=== PATIENT | female | born 1965 | race Caucasian/White ===

== ENCOUNTER 2017-12-03 14:37 | Emergency (ER) | payer MEDICAID ==
[~2017-12-03] VITALS: Ht 175.3 cm; Wt 85.5 kg
[2017-12-03 14:54] VITALS: BP 108/58
[2017-12-03] MEDS ORDERED: PERM60CR4 TOP (15:06)
== END 2017-12-03 15:30 | disposition home or self-care (01) ==
LOC: ER 14:37
DX: R21 Rash and other nonspecific skin eruption (principal); K21.9 Gastro-esophageal reflux disease without esophagitis; J44.9 Chronic obstructive pulmonary disease, unspecified; G89.29 Other chronic pain; F17.200 Nicotine dependence, unspecified, uncomplicated; W57.XXXA Bitten or stung by nonvenomous insect and other nonvenomous arthropods, initial encounter; Y93.89 Activity, other specified; Y92.89 Other specified places as the place of occurrence of the external cause; Y99.8 Other external cause status; Z59.0 Homelessness; Z60.2 Problems related to living alone
CPT/HCPCS: 99282

== ENCOUNTER 2018-01-31 17:32 | Emergency (ER) | payer MEDICAID ==
[~2018-01-31] VITALS: Ht 175.3 cm; Wt 89.0 kg
[~2018-01-31 17:32] MED LIST: PERM60CR4 TOP
[2018-01-31 17:36] VITALS: BP 150/112
== END 2018-01-31 19:05 | disposition left against medical advice (07) ==
LOC: ER 17:33
DX: K08.89 Other specified disorders of teeth and supporting structures (principal)

== ENCOUNTER 2018-04-12 10:38 | Emergency (ER) | payer MEDICAID ==
[~2018-04-12] VITALS: Ht 170.2 cm; Wt 87.3 kg
[2018-04-12 10:49] VITALS: BP 157/94
== END 2018-04-12 11:34 | disposition home or self-care (01) ==
LOC: ER 10:38
DX: S00.33XA Contusion of nose, initial encounter (principal); K21.9 Gastro-esophageal reflux disease without esophagitis; J44.9 Chronic obstructive pulmonary disease, unspecified; G89.29 Other chronic pain; F10.10 Alcohol abuse, uncomplicated; Z79.899 Other long term (current) drug therapy; Z60.2 Problems related to living alone; Z59.0 Homelessness; X58.XXXA Exposure to other specified factors, initial encounter; Y93.89 Activity, other specified; Y92.89 Other specified places as the place of occurrence of the external cause; Y99.8 Other external cause status
CPT/HCPCS: 99281

== ENCOUNTER 2018-04-16 16:28 | Emergency (ER) | payer MEDICAID ==
[~2018-04-16] VITALS: Ht 175.3 cm; Wt 88.1 kg
[2018-04-16 16:29] VITALS: BP 140/73
[2018-04-16] MEDS ORDERED: NYST1POW5 TOP (17:08)
[2018-04-16] MEDS ORDERED: KEN0.1O TP (17:08)
== END 2018-04-16 17:30 | disposition home or self-care (01) ==
LOC: ER 16:28
DX: B37.2 Candidiasis of skin and nail (principal); F10.10 Alcohol abuse, uncomplicated; J44.9 Chronic obstructive pulmonary disease, unspecified; K21.9 Gastro-esophageal reflux disease without esophagitis; G89.29 Other chronic pain; Z60.2 Problems related to living alone; Z59.0 Homelessness; Z79.899 Other long term (current) drug therapy; Y90.9 Presence of alcohol in blood, level not specified
CPT/HCPCS: 99284

== ENCOUNTER 2018-07-30 15:31 | Emergency (ER) | payer MEDICAID ==
[~2018-07-30] VITALS: Ht 175.3 cm; Wt 89.0 kg
[~2018-07-30 15:31] MED LIST changes: +NYST1POW5 TOP
[2018-07-30 15:52] VITALS: BP 118/50
[2018-07-30] MEDS ORDERED: SULF1TAB49 PO (16:38)
[2018-07-30] MEDS ORDERED: MUPI22OI30 TOP (16:38)
== END 2018-07-30 17:10 | disposition home or self-care (01) ==
LOC: ER 15:33
DX: L03.116 Cellulitis of left lower limb (principal); F10.20 Alcohol dependence, uncomplicated; J44.9 Chronic obstructive pulmonary disease, unspecified; K21.9 Gastro-esophageal reflux disease without esophagitis; G89.29 Other chronic pain; Z79.2 Long term (current) use of antibiotics; Z79.899 Other long term (current) drug therapy; Y90.9 Presence of alcohol in blood, level not specified; Z60.2 Problems related to living alone; Z59.0 Homelessness
CPT/HCPCS: 99283

== ENCOUNTER 2018-12-16 15:01 | Emergency (ER) | payer MEDICAID ==
[~2018-12-16] VITALS: Ht 175.3 cm; Wt 90.8 kg
[2018-12-16 15:10] VITALS: BP 155/84
--- NOTE | 2018-12-16 15:44 | NUR ---
PER PA OPPEZZO PATIENT NOT IN ROOM, NO VISUALIZATION BY REGISTRATION, AMY LAW MADE AWARE.
== END 2018-12-17 15:44 | disposition left against medical advice (07) ==
LOC: ER 12-17 00:20
DX: Z02.89 Encounter for other administrative examinations (principal); Z53.21 Procedure and treatment not carried out due to patient leaving prior to being seen by health care provider

== ENCOUNTER 2018-12-20 21:13 | Emergency (ER) | payer MEDICAID ==
[~2018-12-20] VITALS: Ht 175.3 cm; Wt 80.0 kg
[2018-12-20] MEDS ORDERED: DOXYCYCLINE 100MG CAPSULE PO STA (22:19)
[2018-12-20] MEDS ORDERED: tuberculin, purif. prot. deriv. 5 units/0.1ml ID ONE (22:20)
[2018-12-20] MEDS ORDERED: CefTRIAXone 250MG IM Kit w/LIDOcaine IM ONE (22:20)
[2018-12-20] MEDS ORDERED: PERM60CR19 TP (22:25)
[2018-12-20] MEDS ORDERED: DOXY100C43 PO (22:25)
[2018-12-20 23:23] VITALS: BP 136/99
[2018-12-22 08:18] LABS: RPR Non Reactive (Non Reactive)
== END 2018-12-20 23:25 | disposition home or self-care (01) ==
LOC: ER 21:13
DX: S80.862A Insect bite (nonvenomous), left lower leg, initial encounter (principal); S80.861A Insect bite (nonvenomous), right lower leg, initial encounter; J44.9 Chronic obstructive pulmonary disease, unspecified; K21.9 Gastro-esophageal reflux disease without esophagitis; G89.29 Other chronic pain; F17.210 Nicotine dependence, cigarettes, uncomplicated; Z59.0 Homelessness; Z88.6 Allergy status to analgesic agent; W57.XXXA Bitten or stung by nonvenomous insect and other nonvenomous arthropods, initial encounter; Y93.89 Activity, other specified; Y92.89 Other specified places as the place of occurrence of the external cause; Y99.9 Unspecified external cause status
CPT/HCPCS: 36415; 86592; 96372; 99284; J0696

== ENCOUNTER 2018-12-25 14:37 | Emergency (ER) | payer MEDICAID ==
[~2018-12-25] VITALS: Ht 175.3 cm; Wt 87.0 kg
[~2018-12-25 14:37] MED LIST changes: +DOXY100C43 PO; +PERM60CR19 TP
[2018-12-25 14:48] VITALS: BP 140/80
== END 2018-12-25 15:53 | disposition left against medical advice (07) ==
LOC: ER 14:38
DX: Z71.2 Person consulting for explanation of examination or test findings (principal); Z53.21 Procedure and treatment not carried out due to patient leaving prior to being seen by health care provider

== ENCOUNTER 2018-12-25 16:40 | Emergency (ER) | payer MEDICAID ==
--- NOTE | 2018-12-25 16:54 | NUR ---
Patient seen here earlier, LWBS, returns and when called to triage patient asked if she was going to have to wait again. I told patient there would be a short wait and pt. decided to leave again.
== END 2018-12-25 16:55 | disposition left against medical advice (07) ==
LOC: ER 16:40
DX: Z71.2 Person consulting for explanation of examination or test findings (principal); Z53.21 Procedure and treatment not carried out due to patient leaving prior to being seen by health care provider

== ENCOUNTER 2019-05-21 15:01 | Emergency (ER) | payer MEDICAID ==
[~2019-05-21] VITALS: Ht 175.3 cm; Wt 90.9 kg
[~2019-05-21 15:01] MED LIST changes: -DOXY100C43 PO
[2019-05-21 15:06] VITALS: BP 126/73
[2019-05-21] MEDS ORDERED: naproxen 500mg tablet PO ONE (15:10)
[2019-05-21] MEDS ORDERED: ibuprofen tablet 400 MG TABLET PO ONE (15:40)
== END 2019-05-21 16:04 | disposition home or self-care (01) ==
LOC: ER 15:02
DX: S00.83XA Contusion of other part of head, initial encounter (principal); F10.920 Alcohol use, unspecified with intoxication, uncomplicated; J44.9 Chronic obstructive pulmonary disease, unspecified; K21.9 Gastro-esophageal reflux disease without esophagitis; G89.29 Other chronic pain; F17.210 Nicotine dependence, cigarettes, uncomplicated; Z59.0 Homelessness; Z88.6 Allergy status to analgesic agent; Z79.899 Other long term (current) drug therapy; Y04.0XXA Assault by unarmed brawl or fight, initial encounter; Y93.89 Activity, other specified; Y92.89 Other specified places as the place of occurrence of the external cause; Y99.9 Unspecified external cause status
CPT/HCPCS: 70110; 99283

== ENCOUNTER 2019-06-24 13:09 | Emergency (ER) | payer MEDICAID ==
[~2019-06-24] VITALS: Ht 175.3 cm; Wt 89.5 kg
[2019-06-24 13:13] VITALS: BP 128/86
== END 2019-06-24 14:29 | disposition home or self-care (01) ==
LOC: ER 13:09
DX: F10.20 Alcohol dependence, uncomplicated (principal); J44.9 Chronic obstructive pulmonary disease, unspecified; K21.9 Gastro-esophageal reflux disease without esophagitis; G89.29 Other chronic pain; Z60.2 Problems related to living alone; Z59.0 Homelessness; Z88.6 Allergy status to analgesic agent; Z79.899 Other long term (current) drug therapy; Y90.9 Presence of alcohol in blood, level not specified
CPT/HCPCS: 99281

== ENCOUNTER → 2020-06-12 | Emergency (ER) | payer MEDICAID ==
[~2020-06-12] VITALS: Ht 175.3 cm; Wt 88.2 kg
[~2020-06-12] MED LIST changes: +ketorolac tromethamine 15mg/ml inj. IM STA
[2020-06-12 11:57] VITALS: BP 126/93
== END | disposition home or self-care (01) ==
LOC: ER 11:53
DX: M25.561 Pain in right knee (principal); M25.461 Effusion, right knee; J44.9 Chronic obstructive pulmonary disease, unspecified; K21.9 Gastro-esophageal reflux disease without esophagitis; G89.29 Other chronic pain; Z72.89 Other problems related to lifestyle; Z60.2 Problems related to living alone; Z59.0 Homelessness; Z88.6 Allergy status to analgesic agent; Z79.899 Other long term (current) drug therapy
CPT/HCPCS: 96372; 99283; J1885

== ENCOUNTER 2020-06-22 10:19 | Emergency (ER) | payer MEDICAID ==
[~2020-06-22] VITALS: Ht 175.3 cm; Wt 90.0 kg
[~2020-06-22 10:19] MED LIST changes: -ketorolac tromethamine 15mg/ml inj. IM STA
[2020-06-22 10:38] VITALS: BP 151/86
== END 2020-06-22 10:51 | disposition left against medical advice (07) ==
LOC: ER 10:21
DX: Z00.00 Encounter for general adult medical examination without abnormal findings (principal); Y08.89XA Assault by other specified means, initial encounter; Y93.89 Activity, other specified; Y92.89 Other specified places as the place of occurrence of the external cause; Y99.8 Other external cause status

== ENCOUNTER 2020-06-27 16:45 | Emergency (ER) | payer MEDICAID ==
[~2020-06-27] VITALS: Ht 175.3 cm; Wt 92.3 kg
[2020-06-27 16:48] VITALS: BP 162/96
== END 2020-06-27 19:05 | disposition home or self-care (01) ==
LOC: ER 16:46
DX: M25.561 Pain in right knee (principal); J44.9 Chronic obstructive pulmonary disease, unspecified; K21.9 Gastro-esophageal reflux disease without esophagitis; G89.29 Other chronic pain; Z72.89 Other problems related to lifestyle; Z60.2 Problems related to living alone; Z59.0 Homelessness; Z88.6 Allergy status to analgesic agent; Z79.899 Other long term (current) drug therapy
CPT/HCPCS: 73560; 93971; 99284

== ENCOUNTER 2020-12-23 17:28 | Emergency (ER) | payer MEDICAID ==
[~2020-12-23] VITALS: Ht 175.3 cm; Wt 90.9 kg
[2020-12-23 17:30] VITALS: BP 139/77
== END 2020-12-23 17:41 | disposition left against medical advice (07) ==
LOC: ER 17:28
DX: Z53.21 Procedure and treatment not carried out due to patient leaving prior to being seen by health care provider (principal)

== ENCOUNTER 2021-05-24 07:11 | Emergency (ER) | payer MEDICAID ==
[~2021-05-24] VITALS: Ht 175.3 cm; Wt 90.7 kg
[2021-05-24 07:16] VITALS: BP 156/87
[2021-05-24] MEDS ORDERED: chlordiazePOXIDE 25mg capsule PO ONE (07:30)
== END 2021-05-24 08:09 | disposition home or self-care (01) ==
LOC: ER 07:11
DX: Z02.89 Encounter for other administrative examinations (principal); F10.10 Alcohol abuse, uncomplicated; K21.9 Gastro-esophageal reflux disease without esophagitis; J44.9 Chronic obstructive pulmonary disease, unspecified; G89.29 Other chronic pain; F17.210 Nicotine dependence, cigarettes, uncomplicated; Z72.89 Other problems related to lifestyle; Z60.2 Problems related to living alone; Z59.0 Homelessness; Z88.6 Allergy status to analgesic agent; Z79.899 Other long term (current) drug therapy; Y90.9 Presence of alcohol in blood, level not specified
CPT/HCPCS: 99283

== ENCOUNTER 2021-06-27 11:25 | Emergency (ER) | payer MEDICAID ==
[~2021-06-27] VITALS: Ht 175.3 cm; Wt 82.7 kg
[2021-06-27 12:03] VITALS: BP 136/88
== END 2021-06-27 23:00 | disposition left against medical advice (07) ==
LOC: ER 11:25
DX: S00.461A Insect bite (nonvenomous) of right ear, initial encounter (principal); K21.9 Gastro-esophageal reflux disease without esophagitis; J44.9 Chronic obstructive pulmonary disease, unspecified; G89.29 Other chronic pain; M54.9 Dorsalgia, unspecified; Z88.8 Allergy status to other drugs, medicaments and biological substances; Z79.899 Other long term (current) drug therapy; W57.XXXA Bitten or stung by nonvenomous insect and other nonvenomous arthropods, initial encounter; Y93.89 Activity, other specified; Y92.89 Other specified places as the place of occurrence of the external cause; Y99.8 Other external cause status
CPT/HCPCS: 99281

== ENCOUNTER 2021-09-14 11:31 | Emergency (ER) | payer MEDICAID ==
[~2021-09-14] VITALS: Ht 175.3 cm; Wt 90.9 kg
[2021-09-14 12:13] VITALS: BP 161/93
[2021-09-14] MEDS ORDERED: GABA300C PO (12:18)
== END 2021-09-14 12:33 | disposition home or self-care (01) ==
LOC: ER 11:32
DX: F10.10 Alcohol abuse, uncomplicated (principal); J44.9 Chronic obstructive pulmonary disease, unspecified; K21.9 Gastro-esophageal reflux disease without esophagitis; G89.29 Other chronic pain; Z72.89 Other problems related to lifestyle; Z60.2 Problems related to living alone; Z59.00 Homelessness unspecified; Z88.6 Allergy status to analgesic agent; Z79.899 Other long term (current) drug therapy; Y90.9 Presence of alcohol in blood, level not specified
CPT/HCPCS: 99283

== ENCOUNTER 2021-09-23 07:47 | Emergency (ER) | payer MEDICAID ==
[~2021-09-23] VITALS: Ht 175.3 cm; Wt 95.5 kg
[~2021-09-23 07:47] MED LIST changes: +GABA300C PO
[2021-09-23 07:57] VITALS: BP 155/93
[2021-09-23 09:20] LABS: BASOPHILS # (AUTO) 0.1 X10'3 (0-0.2); BASOPHILS % (AUTO) 0.7 % (0-1); EOSINOPHILS # (AUTO) 0.2 X10'3 (0-0.9); EOSINOPHILS % (AUTO) 1.3 % (0-6); HEMATOCRIT 41.2 % (35.0-45.0); HEMOGLOBIN 14.2 g/dl (12.0-16.0); LYMPHOCYTES % (AUTO) 15.4 % (21-51); MEAN CORPUSCULAR HEMOGLOBIN 33.7 PG (27.0-31.0); MEAN CORPUSCULAR HGB CONC 34.5 g/dL (33.0-36.5); MEAN CORPUSCULAR VOLUME 97.9 FL (78-98); MEAN PLATELET VOLUME 7.3 FL (7.4-10.4); MONOCYTES # (AUTO) 1.3 X10'3 (0-0.9); MONOCYTES % (AUTO) 10.2 % (2-12); NEUTROPHILS # (AUTO) 9.3 X10'3 (1.8-7.7); NEUTROPHILS % (AUTO) 72.4 % (42-75); PLATELET COUNT 302 X10'3 (140-440); RED BLOOD COUNT 4.21 X10'6 (4.20-5.60); RED CELL DISTRIBUTION WIDTH 13.4 % (11.5-14.5); WHITE BLOOD COUNT 12.8 X10'3 (4.5-11.0)
[2021-09-23 09:34] LABS: ALANINE AMINOTRANSFERASE 140 U/L (12-78); ALBUMIN 3.3 G/DL (3.4-5.0); ALBUMIN/GLOBULIN RATIO 0.6 (1.1-1.5); ALKALINE PHOSPHATASE 120 IU/L (46-116); ANION GAP 10 (8-16); ASPARTATE AMINO TRANSFERASE 58 U/L (10-37); BILIRUBIN,TOTAL 0.9 MG/DL (0.1-1.0); BLOOD UREA NITROGEN 13 MG/DL (7-18); BUN/CREATININE RATIO 18.1 (6.6-38.0); CALCIUM 8.8 MG/DL (8.5-10.1); CHLORIDE 104 MMOL/L (99-107); CREATININE 0.72 MG/DL (0.40-0.90); GLUCOSE 105 MG/DL (70-104); POTASSIUM 3.7 MMOL/L (3.5-5.1); SODIUM 140 MMOL/L (135-145); TOTAL CARBON DIOXIDE 26.3 MMOL/L (24-32); TOTAL PROTEIN 8.5 G/DL (6.4-8.2); eGFR 84 ML/MIN
[2021-09-23 09:34] LABS: URINE HCG NEGATIVE (NEG)
[2021-09-23 09:43] LABS: CLARITY,URINE CLOUDY (Clear); COLOR,URINE YELLOW (Yellow); GLUCOSE, URINE NEGATIVE (Neg); KETONES,URINE NEGATIVE (Neg); LEUKOCYTE ESTERASE ,URINE MODERATE (Neg); NITRITES, URINE POSITIVE (Neg); OCCULT BLOOD,URINE MODERATE (Neg); PROTEIN,URINE TRACE mg/dl (Neg); UA COLLECTION TYPE CLN CATCH MIDSTREAM; UROBILINOGEN,URINE 0.2 E.U/dL (0.2-1.0)
[2021-09-23 09:53] LABS: BACTERIA,URINE 4+ /HPF (Neg); WBC,URINE 50-100 /HPF (0-4)
[2021-09-23 09:54] LABS: MUCUS STRANDS MODERATE /LPF (Neg); SQUAMOUS EPITHELIAL CELL,UR MODERATE /LPF (FEW); WBC CLUMPS,URINE MANY /HPF (NEGATIVE)
== END 2021-09-23 10:19 | disposition left against medical advice (07) ==
LOC: ER 07:47
DX: R32 Unspecified urinary incontinence (principal); Z53.21 Procedure and treatment not carried out due to patient leaving prior to being seen by health care provider
CPT/HCPCS: 80053; 81001; 81025; 85025; 87077; 87088; 87186

== ENCOUNTER 2021-10-09 18:53 | Emergency (ER) | payer MEDICAID ==
[~2021-10-09] VITALS: Ht 172.7 cm; Wt 96.4 kg
[2021-10-09] MEDS ORDERED: etomidate 2mg/ml inj. IV ONE (19:10)
[2021-10-09] MEDS ORDERED: fentaNYL/PF 50MCG/1 ML 2ML syringe IV ONE (19:10)
[2021-10-09 21:59] VITALS: BP 143/110
[2021-10-09] MEDS ORDERED: HYDR-3965 PO (22:51)
== END 2021-10-09 23:10 | disposition home or self-care (01) ==
LOC: ER 18:54
DX: S43.004A Unspecified dislocation of right shoulder joint, initial encounter (principal); W18.39XA Other fall on same level, initial encounter; Y93.89 Activity, other specified; Y92.89 Other specified places as the place of occurrence of the external cause; Y99.8 Other external cause status
CPT/HCPCS: 23650; 73030; 94799; 99152; 99285; J3010; J3490; 94760; 96374; 96375

== ENCOUNTER 2021-10-22 10:49 | Emergency (ER) | payer MEDICAID ==
[~2021-10-22 10:49] MED LIST changes: +HYDR-3965 PO
== END 2021-10-22 13:28 | disposition left against medical advice (07) ==
LOC: ER 10:49
DX: M25.519 Pain in unspecified shoulder (principal); Z53.21 Procedure and treatment not carried out due to patient leaving prior to being seen by health care provider

== ENCOUNTER 2021-10-22 21:42 | Emergency (ER) | payer MEDICAID ==
[~2021-10-22] VITALS: Ht 175.3 cm; Wt 100.0 kg
[2021-10-22 21:51] VITALS: BP 167/84
[2021-10-23] MEDS ORDERED: acetaminophen 325mg tablet PO ONE (01:35)
[2021-10-23] MEDS ORDERED: HYDROcodone/acetaminophen 5mg/325mg tablet PO ONE (01:35)
== END 2021-10-23 02:09 | disposition home or self-care (01) ==
LOC: ER 21:44
DX: M79.601 Pain in right arm (principal); J44.9 Chronic obstructive pulmonary disease, unspecified; K21.9 Gastro-esophageal reflux disease without esophagitis; Z72.89 Other problems related to lifestyle; Z60.2 Problems related to living alone; Z59.00 Homelessness unspecified; Z88.6 Allergy status to analgesic agent; Z79.899 Other long term (current) drug therapy
CPT/HCPCS: 99283

== ENCOUNTER 2022-01-17 16:20 | Inpatient (IN) | payer MEDICAID ==
[~2022-01-17] VITALS: Ht 175.3 cm; Wt 235.5 kg
[~2022-01-17 16:20] MED LIST changes: -HYDR-3965 PO
[2022-01-17 17:22] LABS: BASOPHILS # (AUTO) 0.1 X10'3 (0-0.2); EOSINOPHILS # (AUTO) 0.1 X10'3 (0-0.9); EOSINOPHILS % (AUTO) 1.9 % (0-6); HEMATOCRIT 37.8 % (35.0-45.0); HEMOGLOBIN 12.5 g/dl (12.0-16.0); LYMPHOCYTES # (AUTO) 1.2 X10'3 (1.1-4.8); LYMPHOCYTES % (AUTO) 16.3 % (21-51); MEAN CORPUSCULAR HEMOGLOBIN 31.2 PG (27.0-31.0); MEAN CORPUSCULAR VOLUME 94.6 FL (78-98); MEAN PLATELET VOLUME 7.5 FL (7.4-10.4); MONOCYTES # (AUTO) 0.7 X10'3 (0-0.9); MONOCYTES % (AUTO) 9.8 % (2-12); NEUTROPHILS # (AUTO) 5.1 X10'3 (1.8-7.7); PLATELET COUNT 309 X10'3 (140-440); RED CELL DISTRIBUTION WIDTH 13.8 % (11.5-14.5); WHITE BLOOD COUNT 7.2 X10'3 (4.5-11.0)
[2022-01-17 17:36] LABS: ALANINE AMINOTRANSFERASE 59 U/L (12-78); ALBUMIN 3.1 G/DL (3.4-5.0); ALBUMIN/GLOBULIN RATIO 0.7 (1.1-1.5); ALKALINE PHOSPHATASE 88 IU/L (46-116); ANION GAP 8 (8-16); ASPARTATE AMINO TRANSFERASE 53 U/L (10-37); BILIRUBIN,TOTAL 0.6 MG/DL (0.1-1.0); BLOOD UREA NITROGEN 14 MG/DL (7-18); BUN/CREATININE RATIO 17.9 (6.6-38.0); CALCIUM 8.2 MG/DL (8.5-10.1); CHLORIDE 106 MMOL/L (99-107); CREATININE 0.78 MG/DL (0.40-0.90); GLUCOSE 91 MG/DL (70-104); LIPASE 147 U/L (73-393); POTASSIUM 3.8 MMOL/L (3.5-5.1); SODIUM 140 MMOL/L (135-145); TOTAL CARBON DIOXIDE 26.3 MMOL/L (24-32); TOTAL PROTEIN 7.7 G/DL (6.4-8.2); eGFR 77 ML/MIN
[2022-01-17] MEDS ORDERED: metoprolol tartrate 1mg/ml inj IV ONE (18:00)
[2022-01-17] MEDS ORDERED: furosemide 40mg/4ml inj IV ONE (18:00)
[2022-01-17 19:37] LABS: CLARITY,URINE SLIGHTLY CLOUDY (Clear); COLOR,URINE YELLOW (Yellow); GLUCOSE, URINE NEGATIVE (Neg); KETONES,URINE NEGATIVE (Neg); LEUKOCYTE ESTERASE ,URINE TRACE (Neg); NITRITES, URINE NEGATIVE (Neg); OCCULT BLOOD,URINE TRACE-INTACT (Neg); PH,URINE 5.5 (4.8-8.0); PROTEIN,URINE TRACE mg/dl (Neg); UROBILINOGEN,URINE 0.2 E.U/dL (0.2-1.0)
[2022-01-17 19:41] LABS: UA COLLECTION TYPE URINAL
[2022-01-17 19:45] LABS: BACTERIA,URINE 1+ /HPF (Neg); FINE GRANULAR CAST 0-3 /LPF (NEGATIVE); MUCUS STRANDS FEW /LPF (Neg); RBC,URINE 0-2 /HPF (0-2); SQUAMOUS EPITHELIAL CELL,UR MODERATE /LPF (FEW)
[2022-01-17] MEDS ORDERED: labetalol 20mg/4ml (5mg/ml) syringe IV ONE (21:25)
[2022-01-17] MEDS ORDERED: LEVA15HF6 IH (23:34)
[2022-01-17] MEDS ORDERED: NALT50TA PO (23:34)
[2022-01-17] MEDS ORDERED: CYCL5TAB PO (23:34)
[2022-01-17] MEDS ORDERED: BECL10.62 IH (23:34)
[2022-01-17] MEDS ORDERED: PANT40TA54 PO (23:34)
[2022-01-17] MEDS ORDERED: IBUP-1985 PO (23:34)
[2022-01-17] MEDS ORDERED: MELO-102 PO (23:34)
[2022-01-17] MEDS ORDERED: GABA300C PO (23:34)
[2022-01-17] MEDS ORDERED: OMEP40CA21 PO (23:34)
[2022-01-18] MEDS ORDERED: ringers solution, lacted 1,000 ML IV ONE (01:50)
[2022-01-18] MEDS ORDERED: acetaminophen 650mg rectal suppository RC PRN (01:55)
[2022-01-18] MEDS ORDERED: acetaminophen 325mg tablet PO PRN ×2 (01:55)
[2022-01-18] MEDS ORDERED: diphenhydrAMINE 25mg capsule PO PRN (01:55)
[2022-01-18] MEDS ORDERED: mag hydrox/Alum hydrox/simeth 30ml oral suspension PO PRN (01:55)
[2022-01-18] MEDS ORDERED: morphine 2 MG/ML inj. syringe IV PRN ×2 (01:55)
[2022-01-18] MEDS ORDERED: magnesium hydroxide 30ml (MOM) UD suspension PO PRN (01:55)
[2022-01-18] MEDS ORDERED: diphenhydrAMINE 50 mg/ml inj IV PRN (01:55)
[2022-01-18] MEDS ORDERED: haloperidol lactate 5mg/ml inj IM PRN (01:55)
[2022-01-18] MEDS ORDERED: cyclobenzaprine 10mg tablet PO PRN (01:55)
[2022-01-18] MEDS ORDERED: LORazepam 2 mg/ml vial IV PRN (01:55)
[2022-01-18] MEDS ORDERED: HYDROcodone/acetaminophen 10/325mg tab PO PRN (01:55)
[2022-01-18] MEDS ORDERED: normal saline 1000ml 1,000 ML IV SCH (01:55)
[2022-01-18] MEDS ORDERED: dextrose 50%-water 50ml dispensing syringe IV PRN (01:55)
[2022-01-18] MEDS ORDERED: ondansetron/PF 4mg/2ml inj IV PRN (01:55)
[2022-01-18] MEDS ORDERED: bisacodyl 10mg suppository rectal RC PRN (01:55)
[2022-01-18] MEDS ORDERED: HYDROcodone/acetaminophen 5mg/325mg tablet PO PRN (01:55)
[2022-01-18] MEDS ORDERED: ondansetron 4mg rapidly disintigrating tab PO PRN (01:55)
[2022-01-18 02:42] LABS: APTT 27 SECONDS (22-32); D-DIMER 1.83 MG/L FEU (0-0.50)
[2022-01-18] MEDS ORDERED: albuterol 2.5 MG/3 ML nebule NEB PRN (03:00)
[2022-01-18 03:02] LABS: HEMOGLOBIN A1C 6.4 % (4.5-6.2)
[2022-01-18 03:26] LABS: CREATINE KINASE 48 U/L (26-192); MAGNESIUM 1.7 MG/DL (1.5-2.4); PHOSPHORUS 3.3 MG/DL (2.3-4.5)
[2022-01-18] MEDS ORDERED: LIDOcaine 2% 10ml TOPICAL JELLY (Urojet) TP ONE (05:45)
[2022-01-18] MEDS ORDERED: ipratropium/albuterol 3ml nebule NEB PRN (06:05)
--- NOTE | 2022-01-18 06:20 | NUR ---
pt refused stapleton catheter placement. continuing to measure urine output via a hat on a commode. pt can walk to the commode without help. let Dr. Smith know about the elevated heart rate.
--- NOTE | 2022-01-18 06:22 | NUR ---
dr. alejo made aware that heart rate is still elevated since earlier call to him. pt is stable.
[2022-01-18 06:26] LABS: CLARITY,URINE CLEAR (Clear); COLOR,URINE YELLOW (Yellow); GLUCOSE, URINE NEGATIVE (Neg); KETONES,URINE NEGATIVE (Neg); LEUKOCYTE ESTERASE ,URINE NEGATIVE (Neg); NITRITES, URINE NEGATIVE (Neg); OCCULT BLOOD,URINE NEGATIVE (Neg); PH,URINE 5.5 (4.8-8.0); PROTEIN,URINE NEGATIVE (Neg); URINE AMPHETAMINE SCREEN POSITIVE (Neg); URINE BARBITUATE SCREEN NEGATIVE (Neg); URINE BENZODIAZEPINES SCREEN NEGATIVE (Neg); URINE CANNABINOID SCREEN NEGATIVE (Neg); URINE COCAINE SCREEN NEGATIVE (Neg); URINE METHADONE SCREEN NEGATIVE (Neg); URINE OPIATE SCREEN NEGATIVE (Neg); URINE PHENCYCLIDINE SCREEN NEGATIVE (Neg); UROBILINOGEN,URINE 0.2 E.U/dL (0.2-1.0)
[2022-01-18] MEDS: carVEDilol 3.125mg tablet PO SCH ×2 (06:26→20:02)
[2022-01-18 06:32] LABS: UA COLLECTION TYPE URINAL
--- NOTE | 2022-01-18 06:34 | NUR ---
Patient aroused via tactile stimuli, disoriented but able to "gather myself" shortly. Patient able to reposition self in guerny and drink water and take medication (see EMAR) for HR 124, BP 142/102. Repositioned for comfort, no signs of distress noted.
[2022-01-18] MEDS ORDERED: pantoprazole 40mg Tablet.DR PO SCH (08:00)
[2022-01-18] MEDS ORDERED: furosemide 20 MG/2 ML vial IV SCH (08:00)
[2022-01-18] MEDS: levoFLOXACIN-Levaquin 500mg/D5 100 ML IV SCH (08:49)
[2022-01-18] MEDS: thiamine 100mg/ml 2ml inj. IV SCH ×3 (08:55→20:02)
[2022-01-18] MEDS: pantoprazole 40mg Tablet.DR PO SCH (08:56)
[2022-01-18] MEDS: atorvastatin 10mg tablet PO SCH (08:56)
[2022-01-18] MEDS: docusate sod 100mg capsule PO SCH ×2 (08:56→20:02)
[2022-01-18] MEDS: aspirin 81mg, enteric-coated 1 TAB TABLET.DR PO SCH (08:56)
[2022-01-18] MEDS: heparin, porcine 5000 units/ml vial SQ SCH ×2 (08:56→20:02)
[2022-01-18] MEDS: spironolactone 25 MG tablet PO SCH (08:56)
[2022-01-18] MEDS: naltrexone 50mg tablet PO SCH (09:10)
[2022-01-18] MEDS: folic acid 1mg/0.2ml inj IV SCH (09:11)
[2022-01-18] MEDS ORDERED: iohexol 350MG/ML 100ml bottle IV ONE (09:19)
--- NOTE | 2022-01-18 09:46 | NUR ---
BACK FROM CT AT THIS TIME.
--- NOTE | 2022-01-18 09:58 | NUR ---
RT at bedside at this time.
[2022-01-18] MEDS: budesonide 0.5mg/2ml UD nebule IH SCH ×2 (10:04→19:26)
--- NOTE | 2022-01-18 11:13 | NUR ---
patient asleep at this time.
[2022-01-18 12:10] VITALS: BP 148/103
--- NOTE | 2022-01-18 12:10 | NUR ---
Miss Garcia has been admitted to room 3018-b. She has been assessed as indicated. She has been rough and inappropriate with staff. Alert to self and place confused related to date and time. She is resting quietly at this time
[2022-01-18 15:00] VITALS: BP 149/102
[2022-01-18 18:00] VITALS: BP 125/73
--- NOTE | 2022-01-18 18:15 | NUR ---
Problems reprioritized. Patient report given, questions answered & plan of care reviewed with юлия .
[2022-01-18] MEDS: temazepam 15mg capsule PO PRN (20:02)
[2022-01-18] MEDS: LORazepam 2 mg/ml vial IV PRN (20:02)
[2022-01-18] MEDS: gabapentin 300mg capsule PO SCH (20:02)
--- NOTE | 2022-01-18 20:48 | NUR ---
FARRUKH Pt is agitated, ativan 2mg given Addendum: 01/18/22 at 2049 by Vi Angeles RN Amended: Links added.
[2022-01-18 22:00] VITALS: BP 137/92
[2022-01-19 02:00] VITALS: BP 153/88
[2022-01-19 06:00] VITALS: BP 129/93
--- NOTE | 2022-01-19 06:22 | NUR ---
Pt is refusing telemetry
[2022-01-19 06:42] LABS: BASOPHILS # (AUTO) 0.1 X10'3 (0-0.2); BASOPHILS % (AUTO) 0.8 % (0-1); EOSINOPHILS # (AUTO) 0.2 X10'3 (0-0.9); EOSINOPHILS % (AUTO) 2.6 % (0-6); HEMATOCRIT 37.6 % (35.0-45.0); HEMOGLOBIN 12.4 g/dl (12.0-16.0); LYMPHOCYTES # (AUTO) 1.2 X10'3 (1.1-4.8); LYMPHOCYTES % (AUTO) 18.1 % (21-51); MEAN CORPUSCULAR HEMOGLOBIN 31.1 PG (27.0-31.0); MEAN CORPUSCULAR HGB CONC 33.1 g/dL (33.0-36.5); MEAN CORPUSCULAR VOLUME 94.1 FL (78-98); MEAN PLATELET VOLUME 7.8 FL (7.4-10.4); MONOCYTES # (AUTO) 0.7 X10'3 (0-0.9); MONOCYTES % (AUTO) 11.3 % (2-12); NEUTROPHILS # (AUTO) 4.4 X10'3 (1.8-7.7); NEUTROPHILS % (AUTO) 67.2 % (42-75); PLATELET COUNT 292 X10'3 (140-440); RED CELL DISTRIBUTION WIDTH 13.9 % (11.5-14.5); WHITE BLOOD COUNT 6.6 X10'3 (4.5-11.0)
[2022-01-19 06:53] LABS: ALANINE AMINOTRANSFERASE 63 U/L (12-78); ALBUMIN/GLOBULIN RATIO 0.7 (1.1-1.5); ALKALINE PHOSPHATASE 86 IU/L (46-116); ANION GAP 11 (8-16); ASPARTATE AMINO TRANSFERASE 55 U/L (10-37); BILIRUBIN,TOTAL 0.6 MG/DL (0.1-1.0); BLOOD UREA NITROGEN 14 MG/DL (7-18); BUN/CREATININE RATIO 18.2 (6.6-38.0); CALCIUM 8.6 MG/DL (8.5-10.1); CHLORIDE 104 MMOL/L (99-107); CHOL/HDL RATIO 3.4 (0.00-4.99); CHOLESTEROL 82 MG/DL (0-200); CREATININE 0.77 MG/DL (0.40-0.90); GLUCOSE 124 MG/DL (70-104); HDL CHOLESTEROL 24 MG/DL (35-60); LDL CHOLESTEROL 52 MG/DL (50-100); SODIUM 140 MMOL/L (135-145); TOTAL CARBON DIOXIDE 25.2 MMOL/L (24-32); TOTAL PROTEIN 7.5 G/DL (6.4-8.2); TRIGLYCERIDES 42 MG/DL (20-135); eGFR 78 ML/MIN
[2022-01-19] MEDS ORDERED: methylPREDNISolone sod succ 125mg/2ml vial IV ONE (07:30)
[2022-01-19] MEDS: furosemide 20 MG/2 ML vial IV SCH ×3 (08:00→20:23)
[2022-01-19] MEDS: folic acid 1mg/0.2ml inj IV SCH (08:00)
[2022-01-19] MEDS: naltrexone 50mg tablet PO SCH (10:19)
[2022-01-19] MEDS: aspirin 81mg, enteric-coated 1 TAB TABLET.DR PO SCH (10:19)
[2022-01-19] MEDS: spironolactone 25 MG tablet PO SCH (10:20)
[2022-01-19] MEDS: carVEDilol 3.125mg tablet PO SCH ×2 (10:20→20:24)
[2022-01-19] MEDS: atorvastatin 10mg tablet PO SCH (10:20)
[2022-01-19] MEDS: gabapentin 300mg capsule PO SCH (10:20)
[2022-01-19] MEDS: heparin, porcine 5000 units/ml vial SQ SCH ×2 (10:21→20:23)
[2022-01-19] MEDS: docusate sod 100mg capsule PO SCH ×2 (10:21→20:24)
[2022-01-19] MEDS: levoFLOXACIN-Levaquin 500mg/D5 100 ML IV SCH (10:49)
[2022-01-19] MEDS: thiamine 100mg/ml 2ml inj. IV SCH ×3 (10:50→20:23)
[2022-01-19 11:00] VITALS: BP 143/94
[2022-01-19] MEDS: ipratropium/albuterol 3ml nebule NEB SCH ×5 (11:05→23:31)
[2022-01-19] MEDS: budesonide 0.5mg/2ml UD nebule IH SCH ×2 (11:05→19:34)
[2022-01-19] MEDS: pantoprazole 40mg Tablet.DR PO SCH (11:31)
--- NOTE | 2022-01-19 11:36 | NUR ---
Met with patient in regards to alcohol use and substance use and to see if patient was interested in treatment options. Patient would like resources on inpatient services. Patient mentioned [facility] in [place], so I gave her that number. I gave patient beacons number to call and start that process. I also gave patient my card to call me with any questions
[2022-01-19 15:00] VITALS: BP 138/93
--- NOTE | 2022-01-19 18:00 | NUR ---
Miss Garcia has been assessed as indicated. She denies pain and has slept most of this shift. She uses the BSC independently. completes 100% of her meals and asks for more. IV access has been replace to her Right hand, She has been encouraged to be cautious of this site. She has not required any withdrawal interventions this shift
--- NOTE | 2022-01-19 18:15 | NUR ---
Problems reprioritized. Patient report given, questions answered & plan of care reviewed with OVI .
[2022-01-19] MEDS: methylPREDNISolone sod succ/PF 40mg inj. IV SCH (20:22)
[2022-01-19] MEDS: temazepam 15mg capsule PO PRN (20:24)
[2022-01-20] MEDS: ipratropium/albuterol 3ml nebule NEB SCH ×6 (02:58→23:00)
[2022-01-20 06:06] LABS: BASOPHILS % (AUTO) 0.3 % (0-1); EOSINOPHILS % (AUTO) 0 % (0-6); HEMATOCRIT 38.3 % (35.0-45.0); HEMOGLOBIN 12.7 g/dl (12.0-16.0); LYMPHOCYTES # (AUTO) 0.8 X10'3 (1.1-4.8); LYMPHOCYTES % (AUTO) 7.9 % (21-51); MEAN CORPUSCULAR HGB CONC 33.1 g/dL (33.0-36.5); MEAN CORPUSCULAR VOLUME 93.6 FL (78-98); MEAN PLATELET VOLUME 7.9 FL (7.4-10.4); MONOCYTES # (AUTO) 0.7 X10'3 (0-0.9); MONOCYTES % (AUTO) 6.9 % (2-12); NEUTROPHILS # (AUTO) 9.1 X10'3 (1.8-7.7); NEUTROPHILS % (AUTO) 84.9 % (42-75); PLATELET COUNT 299 X10'3 (140-440); RED BLOOD COUNT 4.09 X10'6 (4.20-5.60); RED CELL DISTRIBUTION WIDTH 13.9 % (11.5-14.5); WHITE BLOOD COUNT 10.7 X10'3 (4.5-11.0)
[2022-01-20 06:58] LABS: ALANINE AMINOTRANSFERASE 58 U/L (12-78); ALBUMIN 2.8 G/DL (3.4-5.0); ALBUMIN/GLOBULIN RATIO 0.6 (1.1-1.5); ALKALINE PHOSPHATASE 87 IU/L (46-116); ANION GAP 10 (8-16); ASPARTATE AMINO TRANSFERASE 38 U/L (10-37); BILIRUBIN,TOTAL 0.4 MG/DL (0.1-1.0); BLOOD UREA NITROGEN 20 MG/DL (7-18); BUN/CREATININE RATIO 21.3 (6.6-38.0); CALCIUM 8.6 MG/DL (8.5-10.1); CHLORIDE 104 MMOL/L (99-107); CREATININE 0.94 MG/DL (0.40-0.90); GLUCOSE 174 MG/DL (70-104); SODIUM 144 MMOL/L (135-145); TOTAL PROTEIN 7.5 G/DL (6.4-8.2); eGFR 62 ML/MIN
[2022-01-20] MEDS: budesonide 0.5mg/2ml UD nebule IH SCH ×2 (07:29→19:27)
[2022-01-20 08:00] VITALS: BP 145/97
[2022-01-20] MEDS: methylPREDNISolone sod succ/PF 40mg inj. IV SCH ×2 (08:00→22:00)
[2022-01-20] MEDS: heparin, porcine 5000 units/ml vial SQ SCH ×2 (08:00→19:46)
[2022-01-20] MEDS: folic acid 1mg/0.2ml inj IV SCH (08:00)
[2022-01-20] MEDS: naltrexone 50mg tablet PO SCH (08:00)
[2022-01-20] MEDS: docusate sod 100mg capsule PO SCH ×2 (09:08→19:49)
[2022-01-20] MEDS: carVEDilol 3.125mg tablet PO SCH ×2 (09:09→19:50)
[2022-01-20] MEDS: spironolactone 25 MG tablet PO SCH (09:17)
[2022-01-20] MEDS: thiamine 100mg/ml 2ml inj. IV SCH ×3 (09:17→20:07)
[2022-01-20] MEDS: furosemide 20 MG/2 ML vial IV SCH ×2 (09:20→19:54)
[2022-01-20] MEDS: pantoprazole 40mg Tablet.DR PO SCH (09:28)
[2022-01-20] MEDS: atorvastatin 10mg tablet PO SCH (09:30)
[2022-01-20] MEDS: aspirin 81mg, enteric-coated 1 TAB TABLET.DR PO SCH (09:30)
[2022-01-20] MEDS: levoFLOXACIN-Levaquin 500mg/D5 100 ML IV SCH (09:37)
--- NOTE | 2022-01-20 10:59 | NUR ---
PT. REFUSED 1100 SVN. NO RESP. DISTRESS OBSERVED
[2022-01-20 11:00] VITALS: BP 125/80
[2022-01-20] MEDS: cefTRIAXone 1g/NS 100ml IVPB 100 ML IV SCH (13:56)
[2022-01-20 15:00] VITALS: BP 144/101
[2022-01-20 18:00] VITALS: BP 135/90
[2022-01-20] MEDS: LORazepam 2 mg/ml vial IV PRN (19:50)
[2022-01-20] MEDS: temazepam 15mg capsule PO PRN (20:07)
[2022-01-20] MEDS: gabapentin 300mg capsule PO SCH (20:07)
[2022-01-20] MEDS ORDERED: methylPREDNISolone sod succ/PF 40mg inj. IV ONE (21:55)
[2022-01-20 22:00] VITALS: BP 140/94
[2022-01-21] MEDS: ipratropium/albuterol 3ml nebule NEB SCH ×3 (02:31→10:39)
[2022-01-21 06:00] VITALS: BP 141/99
[2022-01-21 07:15] LABS: BASOPHILS # (AUTO) 0.1 X10'3 (0-0.2); BASOPHILS % (AUTO) 0.9 % (0-1); EOSINOPHILS % (AUTO) 0 % (0-6); HEMATOCRIT 39.4 % (35.0-45.0); HEMOGLOBIN 12.8 g/dl (12.0-16.0); LYMPHOCYTES # (AUTO) 0.8 X10'3 (1.1-4.8); LYMPHOCYTES % (AUTO) 6.3 % (21-51); MEAN CORPUSCULAR HEMOGLOBIN 30.4 PG (27.0-31.0); MEAN CORPUSCULAR HGB CONC 32.5 g/dL (33.0-36.5); MEAN CORPUSCULAR VOLUME 93.5 FL (78-98); MEAN PLATELET VOLUME 8.1 FL (7.4-10.4); MONOCYTES # (AUTO) 0.5 X10'3 (0-0.9); NEUTROPHILS # (AUTO) 10.7 X10'3 (1.8-7.7); NEUTROPHILS % (AUTO) 88.8 % (42-75); PLATELET COUNT 298 X10'3 (140-440); RED BLOOD COUNT 4.22 X10'6 (4.20-5.60); RED CELL DISTRIBUTION WIDTH 13.7 % (11.5-14.5)
[2022-01-21 07:28] LABS: ALANINE AMINOTRANSFERASE 58 U/L (12-78); ALBUMIN 2.9 G/DL (3.4-5.0); ALBUMIN/GLOBULIN RATIO 0.6 (1.1-1.5); ALKALINE PHOSPHATASE 83 IU/L (46-116); ANION GAP 10 (8-16); ASPARTATE AMINO TRANSFERASE 38 U/L (10-37); BILIRUBIN,TOTAL 0.4 MG/DL (0.1-1.0); BLOOD UREA NITROGEN 27 MG/DL (7-18); BUN/CREATININE RATIO 29.7 (6.6-38.0); CALCIUM 8.5 MG/DL (8.5-10.1); CHLORIDE 103 MMOL/L (99-107); CREATININE 0.91 MG/DL (0.40-0.90); GLUCOSE 144 MG/DL (70-104); POTASSIUM 3.9 MMOL/L (3.5-5.1); SODIUM 143 MMOL/L (135-145); TOTAL CARBON DIOXIDE 29.6 MMOL/L (24-32); TOTAL PROTEIN 7.5 G/DL (6.4-8.2); eGFR 64 ML/MIN
[2022-01-21] MEDS: pantoprazole 40mg Tablet.DR PO SCH (07:30)
[2022-01-21] MEDS: heparin, porcine 5000 units/ml vial SQ SCH (08:00)
[2022-01-21] MEDS: aspirin 81mg, enteric-coated 1 TAB TABLET.DR PO SCH (08:00)
[2022-01-21] MEDS: docusate sod 100mg capsule PO SCH (08:00)
[2022-01-21] MEDS ORDERED: azithromycin/NS 500mg/250ml 250 ML IV SCH (08:00)
[2022-01-21] MEDS: furosemide 20 MG/2 ML vial IV SCH (08:00)
[2022-01-21] MEDS: methylPREDNISolone sod succ/PF 40mg inj. IV SCH (08:00)
[2022-01-21] MEDS: naltrexone 50mg tablet PO SCH (08:00)
[2022-01-21] MEDS: cefTRIAXone 1g/NS 100ml IVPB 100 ML IV SCH (08:00)
[2022-01-21] MEDS: carVEDilol 3.125mg tablet PO SCH (08:00)
[2022-01-21] MEDS: budesonide 0.5mg/2ml UD nebule IH SCH (08:00)
[2022-01-21] MEDS: atorvastatin 10mg tablet PO SCH (08:00)
[2022-01-21] MEDS: spironolactone 25 MG tablet PO SCH (08:30)
--- NOTE | 2022-01-21 08:37 | NUR ---
0700 SVN REFUSED BY PT. NO RESP. DISTRESS OBSERVED
[2022-01-21 11:00] VITALS: BP 143/103
[2022-01-21] MEDS ORDERED: ASPI-1071 PO (12:21)
[2022-01-21] MEDS ORDERED: COR3.125T PO (12:21)
[2022-01-21] MEDS ORDERED: SPIR25TA PO (12:21)
[2022-01-21] MEDS ORDERED: FURO20TA4 PO (12:21)
[2022-01-21] MEDS ORDERED: LEVO500T90 PO (12:21)
[2022-01-21] MEDS ORDERED: ATOR10TA PO (12:21)
[2022-01-21] MEDS ORDERED: thiamine tablet PO (12:21)
[2022-01-21] MEDS ORDERED: FOLI1TAB27 PO (12:21)
[2022-01-22] MEDS ORDERED: thiamine 100mg tablet PO SCH (08:00)
[2022-01-22] MEDS ORDERED: folic acid 1mg tablet PO SCH (08:00)
== END 2022-01-21 13:28 | disposition home or self-care (01) | DRG 139 ==
LOC: ER 16:21 → ED HOLD 01-18 02:04 → PCU 3S 01-18 12:00
PROVIDERS: ADMIT Family Medicine; ATTEND Internal Medicine
PROC: B32T1ZZ Computerized Tomography (CT Scan) of Left Pulmonary Artery using Low Osmolar Contrast (ICD-10-PCS; principal; 2022-01-18)
PROC: B3201ZZ Computerized Tomography (CT Scan) of Thoracic Aorta using Low Osmolar Contrast (ICD-10-PCS; 2022-01-18)
PROC: B32S1ZZ Computerized Tomography (CT Scan) of Right Pulmonary Artery using Low Osmolar Contrast (ICD-10-PCS; 2022-01-18)
DX: J18.9 Pneumonia, unspecified organism (principal); I50.23 Acute on chronic systolic (congestive) heart failure; I42.7 Cardiomyopathy due to drug and external agent; R18.8 Other ascites; J44.0 Chronic obstructive pulmonary disease with (acute) lower respiratory infection; J44.1 Chronic obstructive pulmonary disease with (acute) exacerbation; I11.0 Hypertensive heart disease with heart failure; E78.5 Hyperlipidemia, unspecified; F10.10 Alcohol abuse, uncomplicated; F15.10 Other stimulant abuse, uncomplicated; E66.01 Morbid (severe) obesity due to excess calories; Z60.2 Problems related to living alone; F17.210 Nicotine dependence, cigarettes, uncomplicated; I34.0 Nonrheumatic mitral (valve) insufficiency; K21.9 Gastro-esophageal reflux disease without esophagitis; B19.20 Unspecified viral hepatitis C without hepatic coma; G89.29 Other chronic pain; M54.9 Dorsalgia, unspecified; Z59.00 Homelessness unspecified; Z88.8 Allergy status to other drugs, medicaments and biological substances; Z79.899 Other long term (current) drug therapy; Z71.51 Drug abuse counseling and surveillance of drug abuser; Z71.6 Tobacco abuse counseling; Z68.45 Body mass index [BMI] 70 or greater, adult
CPT/HCPCS: 36415; 71045; 71275; 74176; 80053; 80061; 80305; 81001; 81003; 82550; 83036; 83690; 83735; 83880; 84100; 84145; 84443; 84484; 85025; 85379; 85610; 85730; 87081; 87088; 93005; 93306; 94640; 94760; 99285; G0378; J0456; J0696; J1644; J1940; J1956; J2060; J2920; J2930; J3411; J3490; J7030; J7120; Q9967

== ENCOUNTER 2022-01-24 12:27 | Emergency (ER) | payer MEDICAID ==
[~2022-01-24 12:27] MED LIST changes: +ASPI-1071 PO; +ATOR10TA PO; +BECL10.62 IH; +COR3.125T PO; +CYCL5TAB PO; +FOLI1TAB27 PO; +FURO20TA4 PO; +LEVA15HF6 IH; +LEVO500T90 PO; +NALT50TA PO; -NYST1POW5 TOP; +PANT40TA54 PO; -PERM60CR19 TP; -PERM60CR4 TOP; +SPIR25TA PO; +thiamine tablet PO
== END 2022-01-24 13:50 | disposition left against medical advice (07) ==
LOC: ER 12:29
DX: Z53.21 Procedure and treatment not carried out due to patient leaving prior to being seen by health care provider (principal)

== ENCOUNTER 2022-03-10 20:19 | Emergency (ER) | payer MEDICAID ==
[~2022-03-10] VITALS: Ht 175.3 cm; Wt 90.9 kg
[~2022-03-10 20:19] MED LIST changes: -LEVO500T90 PO
[2022-03-10 20:26] VITALS: BP 143/113
== END 2022-03-10 20:52 | disposition left against medical advice (07) ==
LOC: ER 20:20
DX: S40.861A Insect bite (nonvenomous) of right upper arm, initial encounter (principal); S40.862A Insect bite (nonvenomous) of left upper arm, initial encounter; S80.861A Insect bite (nonvenomous), right lower leg, initial encounter; S80.862A Insect bite (nonvenomous), left lower leg, initial encounter; Z53.21 Procedure and treatment not carried out due to patient leaving prior to being seen by health care provider; W57.XXXA Bitten or stung by nonvenomous insect and other nonvenomous arthropods, initial encounter; Y93.89 Activity, other specified; Y92.89 Other specified places as the place of occurrence of the external cause; Y99.8 Other external cause status

== ENCOUNTER 2022-03-13 10:08 | Emergency (ER) | payer MEDICAID ==
[~2022-03-13] VITALS: Ht 175.3 cm; Wt 104.5 kg
[2022-03-13] MEDS ORDERED: spironolactone 25 MG tablet PO STA (10:56)
[2022-03-13] MEDS ORDERED: furosemide 20MG tablet PO ONE (11:00)
[2022-03-13] MEDS ORDERED: cephalexin 250mg capsule PO ONE (11:00)
[2022-03-13] MEDS ORDERED: SPIR25TA5 PO (11:07)
[2022-03-13] MEDS ORDERED: CEPH-585 PO (11:07)
[2022-03-13] MEDS ORDERED: PERM60CR19 TOP (11:07)
[2022-03-13 11:19] VITALS: BP 132/78
== END 2022-03-13 11:29 | disposition home or self-care (01) ==
LOC: ER 10:09
DX: L03.119 Cellulitis of unspecified part of limb (principal); R60.0 Localized edema; L29.9 Pruritus, unspecified; J44.9 Chronic obstructive pulmonary disease, unspecified; K21.9 Gastro-esophageal reflux disease without esophagitis; G89.29 Other chronic pain; Z86.19 Personal history of other infectious and parasitic diseases; Z72.89 Other problems related to lifestyle; Z60.2 Problems related to living alone; Z59.00 Homelessness unspecified; Z88.6 Allergy status to analgesic agent; Z79.82 Long term (current) use of aspirin; Z79.2 Long term (current) use of antibiotics; Z79.899 Other long term (current) drug therapy
CPT/HCPCS: 99284

== ENCOUNTER 2022-04-23 17:24 | Emergency (ER) | payer MEDICAID ==
[~2022-04-23] VITALS: Ht 175.3 cm; Wt 95.5 kg
[~2022-04-23 17:24] MED LIST changes: +CEPH-585 PO; +SPIR25TA5 PO
[2022-04-23 18:16] LABS: APTT 28 SECONDS (22-32)
[2022-04-23 18:17] LABS: BASOPHILS # (AUTO) 0.1 X10'3 (0-0.2); BASOPHILS % (AUTO) 1.1 % (0-1); EOSINOPHILS # (AUTO) 0.2 X10'3 (0-0.9); EOSINOPHILS % (AUTO) 3.3 % (0-6); LYMPHOCYTES % (AUTO) 14.3 % (21-51); MEAN CORPUSCULAR HEMOGLOBIN 30.8 PG (27.0-31.0); MEAN CORPUSCULAR HGB CONC 33.3 g/dL (33.0-36.5); MEAN CORPUSCULAR VOLUME 92.4 FL (78-98); MEAN PLATELET VOLUME 7.5 FL (7.4-10.4); MONOCYTES # (AUTO) 0.7 X10'3 (0-0.9); MONOCYTES % (AUTO) 10.5 % (2-12); NEUTROPHILS # (AUTO) 4.9 X10'3 (1.8-7.7); NEUTROPHILS % (AUTO) 70.8 % (42-75); PLATELET COUNT 278 X10'3 (140-440); RED CELL DISTRIBUTION WIDTH 18.5 % (11.5-14.5)
[2022-04-23 18:18] LABS: ALANINE AMINOTRANSFERASE 54 U/L (12-78); ALBUMIN 2.9 G/DL (3.4-5.0); ALBUMIN/GLOBULIN RATIO 0.6 (1.1-1.5); ALKALINE PHOSPHATASE 115 IU/L (46-116); ANION GAP 6 (8-16); ASPARTATE AMINO TRANSFERASE 72 U/L (10-37); BILIRUBIN,TOTAL 0.8 MG/DL (0.1-1.0); BLOOD UREA NITROGEN 16 MG/DL (7-18); BUN/CREATININE RATIO 18.8 (6.6-38.0); CALCIUM 8.5 MG/DL (8.5-10.1); CHLORIDE 105 MMOL/L (99-107); CREATININE 0.85 MG/DL (0.40-0.90); POTASSIUM 3.8 MMOL/L (3.5-5.1); SODIUM 141 MMOL/L (135-145); TOTAL CARBON DIOXIDE 30.4 MMOL/L (24-32); TOTAL PROTEIN 7.9 G/DL (6.4-8.2); eGFR 69 ML/MIN
[2022-04-23 18:26] LABS: ETHANOL < 0.010 GM/DL (0.0-0.010)
[2022-04-23 18:30] LABS: GLUCOSE 96 MG/DL (70-104)
[2022-04-23] MEDS ORDERED: furosemide 20MG tablet PO ONE (18:45)
[2022-04-23] MEDS ORDERED: FURO40TA4 PO ×3 (18:47→19:18)
[2022-04-23 19:40] VITALS: BP 136/84
== END 2022-04-23 19:42 | disposition home or self-care (01) ==
LOC: ER 17:24
DX: I50.22 Chronic systolic (congestive) heart failure (principal); R60.0 Localized edema; J44.9 Chronic obstructive pulmonary disease, unspecified; K21.9 Gastro-esophageal reflux disease without esophagitis; G89.29 Other chronic pain; Z72.89 Other problems related to lifestyle; Z60.2 Problems related to living alone; Z59.00 Homelessness unspecified; Z88.6 Allergy status to analgesic agent; Z79.82 Long term (current) use of aspirin; Z79.899 Other long term (current) drug therapy
CPT/HCPCS: 36415; 71045; 80053; 80320; 83880; 85025; 85610; 85730; 93005; 99285

== ENCOUNTER 2022-06-21 12:31 | Inpatient (IN) | payer MEDICAID ==
[~2022-06-21] VITALS: Ht 175.3 cm; Wt 121.2 kg
[~2022-06-21 12:31] MED LIST changes: +FURO-150 PO; +FURO40TA4 PO
[2022-06-21 13:19] LABS: ALANINE AMINOTRANSFERASE 26 U/L (12-78); ALBUMIN/GLOBULIN RATIO 0.6 (1.1-1.5); ALKALINE PHOSPHATASE 106 IU/L (46-116); ANION GAP 9 (8-16); ASPARTATE AMINO TRANSFERASE 38 U/L (10-37); BILIRUBIN,TOTAL 1.1 MG/DL (0.1-1.0); BLOOD UREA NITROGEN 12 MG/DL (7-18); BUN/CREATININE RATIO 12.2 (6.6-38.0); CALCIUM 8.2 MG/DL (8.5-10.1); CHLORIDE 101 MMOL/L (99-107); CREATININE 0.98 MG/DL (0.40-0.90); GLUCOSE 114 MG/DL (70-104); SODIUM 141 MMOL/L (135-145); TOTAL CARBON DIOXIDE 31.3 MMOL/L (24-32); TOTAL PROTEIN 8.4 G/DL (6.4-8.2); eGFR 59 ML/MIN
[2022-06-21 13:26] LABS: AMYLASE 71 U/L (25-115); LIPASE 142 U/L (73-393)
[2022-06-21 13:30] LABS: BASOPHILS # (AUTO) 0.1 X10'3 (0-0.2); BASOPHILS % (AUTO) 0.9 % (0-1); EOSINOPHILS # (AUTO) 0.1 X10'3 (0-0.9); EOSINOPHILS % (AUTO) 1.1 % (0-6); HEMATOCRIT 35.7 % (35.0-45.0); HEMOGLOBIN 11.9 g/dl (12.0-16.0); LYMPHOCYTES % (AUTO) 12.4 % (21-51); MEAN CORPUSCULAR HEMOGLOBIN 31.4 PG (27.0-31.0); MEAN CORPUSCULAR HGB CONC 33.3 g/dL (33.0-36.5); MEAN CORPUSCULAR VOLUME 94.2 FL (78-98); MONOCYTES # (AUTO) 1.1 X10'3 (0-0.9); MONOCYTES % (AUTO) 13.6 % (2-12); NEUTROPHILS # (AUTO) 5.8 X10'3 (1.8-7.7); PLATELET COUNT 272 X10'3 (140-440); POTASSIUM 3.1 MMOL/L (3.5-5.1); RED BLOOD COUNT 3.79 X10'6 (4.20-5.60); RED CELL DISTRIBUTION WIDTH 16.8 % (11.5-14.5); WHITE BLOOD COUNT 8.1 X10'3 (4.5-11.0)
[2022-06-21] MEDS ORDERED: furosemide 40mg/4ml inj IV ONE (15:50)
[2022-06-21] MEDS ORDERED: magnesium 2GM in 50ml NS 50 ML IV SCH (15:50)
[2022-06-21] MEDS ORDERED: potassium CL 10mEq/100ml bag 100 ML IV ONE (15:50)
[2022-06-21] MEDS ORDERED: potassium Cl 20 mEq SR tablet PO ONE (15:50)
[2022-06-21 16:07] LABS: CLARITY,URINE CLEAR (Clear); GLUCOSE, URINE NEGATIVE (Neg); KETONES,URINE TRACE mg/dl (Neg); LEUKOCYTE ESTERASE ,URINE NEGATIVE (Neg); NITRITES, URINE NEGATIVE (Neg); OCCULT BLOOD,URINE NEGATIVE (Neg); PH,URINE 5.5 (4.8-8.0); PROTEIN,URINE >=300 mg/dl (Neg)
[2022-06-21 16:09] LABS: COLOR,URINE DARK YELLOW (Yellow); UA COLLECTION TYPE CLN CATCH MIDSTREAM
[2022-06-21 16:19] LABS: BACTERIA,URINE FEW /HPF (Neg); HYALINE CASTS 0-3 /LPF (NEGATIVE); MUCUS STRANDS FEW /LPF (Neg); RBC,URINE NONE SEEN /HPF (0-2); SQUAMOUS EPITHELIAL CELL,UR MODERATE /LPF (FEW); WBC,URINE 0-4 /HPF (0-4)
[2022-06-21 16:23] LABS: URINE HCG NEGATIVE (NEG)
[2022-06-21 16:27] LABS: URINE AMPHETAMINE SCREEN POSITIVE (Neg); URINE BARBITUATE SCREEN NEGATIVE (Neg); URINE BENZODIAZEPINES SCREEN NEGATIVE (Neg); URINE CANNABINOID SCREEN NEGATIVE (Neg); URINE COCAINE SCREEN NEGATIVE (Neg); URINE METHADONE SCREEN NEGATIVE (Neg); URINE OPIATE SCREEN NEGATIVE (Neg); URINE PHENCYCLIDINE SCREEN NEGATIVE (Neg)
[2022-06-21 17:02] LABS: ETHANOL < 0.010 GM/DL (0.0-0.010); MAGNESIUM 1.7 MG/DL (1.5-2.4)
[2022-06-21] MEDS ORDERED: NIAC100045 PO (17:22)
[2022-06-21] MEDS ORDERED: ATOR10TA70 PO (17:22)
[2022-06-21] MEDS ORDERED: THIA100T66 PO (17:22)
[2022-06-21] MEDS ORDERED: FOLI1TAB27 PO (17:22)
[2022-06-21] MEDS ORDERED: ALBU8.5H17 IH (17:22)
[2022-06-21] MEDS ORDERED: LOSA25TA41 PO (17:22)
[2022-06-21] MEDS ORDERED: ASPI-1397 PO (17:22)
[2022-06-21] MEDS ORDERED: CARV3.123 PO (17:22)
[2022-06-21] MEDS ORDERED: POTA-208 PO (17:22)
[2022-06-21] MEDS ORDERED: FURO40TA4 PO (17:22)
--- NOTE | 2022-06-21 17:30 | NUR ---
Patient ambulated to restroom without difficulty.
[2022-06-21] MEDS ORDERED: magnesium Cl slow-release 64mg tablet PO PRN (17:45)
[2022-06-21] MEDS ORDERED: potassium CL 10mEq/100ml bag 100 ML IV PRN (17:45)
[2022-06-21] MEDS ORDERED: magnesium 2GM in 50ml NS 50 ML IV PRN (17:45)
[2022-06-21] MEDS ORDERED: acetaminophen 325mg tablet PO PRN ×2 (17:45)
[2022-06-21] MEDS ORDERED: LORazepam 1 MG tablet PO PRN (17:45)
[2022-06-21] MEDS ORDERED: magnesium 4gm in 100ml NS 100 ML IV PRN (17:45)
[2022-06-21] MEDS ORDERED: ondansetron/PF 4mg/2ml inj IV PRN (17:45)
[2022-06-21] MEDS ORDERED: LORazepam 2 mg/ml vial IV PRN (17:45)
[2022-06-21] MEDS ORDERED: morphine 2 MG/ML inj. syringe IV PRN (17:45)
[2022-06-21] MEDS ORDERED: POTASSIUM BICARB 20meq eff tab 20 MEQ TABLET.EFF PO PRN (17:45)
[2022-06-21] MEDS ORDERED: magnesium hydroxide 30ml (MOM) UD suspension PO PRN (17:45)
[2022-06-21] MEDS ORDERED: mag hydrox/Alum hydrox/simeth 30ml oral suspension PO PRN (17:45)
[2022-06-21] MEDS ORDERED: cyclobenzaprine 10mg tablet PO PRN (17:55)
--- NOTE | 2022-06-21 18:30 | NUR ---
ASSUMED CARE OF PT. PT AWAKE. CONFUSED ON TIME, SITUATION, AND PLACE. ORIENTED PT. PT IS AN ELOPMENT RISKS EVIDENCE OF WANDERING OFF FROM AREA. PT DIRECTED TO ROOM AND EXPLAINED [facility] PROTOCOL. PT STATED SHE UNDERSTOOD. WILL CONTINUE TO MONITOR. NO S/S OF RESP DISTRESS.
[2022-06-21] MEDS: K and/or MAG REPLACEMENT MC SCH (19:17)
[2022-06-21] MEDS: docusate sod 100mg capsule PO SCH (20:09)
[2022-06-21] MEDS: furosemide 40mg/4ml inj IV SCH (20:09)
[2022-06-21] MEDS: heparin, porcine 5000 units/ml vial SQ SCH (20:09)
[2022-06-21] MEDS: carVEDilol 3.125mg tablet PO SCH (20:09)
[2022-06-21] MEDS: gabapentin 300mg capsule PO SCH (20:09)
[2022-06-21] MEDS: potassium Cl 20 mEq SR tablet PO SCH (20:10)
[2022-06-21] MEDS: niacin 500mg ER (Niaspan) tablet PO SCH (20:10)
[2022-06-21] MEDS: HYDROcodone/acetaminophen 5mg/325mg tablet PO PRN (20:11)
[2022-06-21] MEDS: albuterol 2.5 MG/3 ML nebule NEB PRN (20:12)
[2022-06-21] MEDS: budesonide 0.5mg/2ml UD nebule IH SCH (20:12)
--- NOTE | 2022-06-21 20:30 | NUR ---
HS MEDS GIVEN TO PT. ORIENTED PT TO SAFETY PROTOCOLS. EXPLAINED THAT WANDERING OFF FROM ROOM WILL NOT BE ACCEPTABLE FOR THE SAFETY OF STAFF AND PT. PT VERBELIZED UNDERSTANDING. WILL CONT TO MONITOR.
[2022-06-21] MEDS ORDERED: temazepam 15mg capsule PO PRN (21:00)
--- NOTE | 2022-06-21 21:30 | NUR ---
Received report from MCKAYLA Stover. Awaiting patient arrival to the floor.
--- NOTE | 2022-06-21 21:40 | NUR ---
Patient arrived to the floor via gurney accompanied by maintenance technician 3rd shift. Placed in 0129I. Patient awake and alert on room air, in no apparent distress. Call light items of frequent use within reach.
[2022-06-21 21:50] VITALS: BP 122/94
[2022-06-22] VITALS (15 sets, daily range): BP systolic 113–136; BP diastolic 59–97
--- NOTE | 2022-06-22 05:48 | NUR ---
Patient yelling and throwing things on the floor. Patient asked to put all bed rails down, and this RN did not find that to be safe for patient and refused to do so. Patient refused to hear my reasoning and told this RN "ok get out. Get the fuck out." and started throwing more things on the floor. As this RN left the room, patient last seen sitting in bed.
[2022-06-22 07:30] LABS: BASOPHILS # (AUTO) 0.1 X10'3 (0-0.2); BASOPHILS % (AUTO) 0.8 % (0-1); EOSINOPHILS # (AUTO) 0.2 X10'3 (0-0.9); EOSINOPHILS % (AUTO) 3.1 % (0-6); HEMATOCRIT 35.6 % (35.0-45.0); HEMOGLOBIN 11.9 g/dl (12.0-16.0); LYMPHOCYTES # (AUTO) 0.9 X10'3 (1.1-4.8); LYMPHOCYTES % (AUTO) 14.1 % (21-51); MEAN CORPUSCULAR HEMOGLOBIN 31.4 PG (27.0-31.0); MEAN CORPUSCULAR HGB CONC 33.4 g/dL (33.0-36.5); MEAN CORPUSCULAR VOLUME 93.9 FL (78-98); MEAN PLATELET VOLUME 8.1 FL (7.4-10.4); MONOCYTES # (AUTO) 0.8 X10'3 (0-0.9); MONOCYTES % (AUTO) 11.3 % (2-12); NEUTROPHILS # (AUTO) 4.7 X10'3 (1.8-7.7); NEUTROPHILS % (AUTO) 70.7 % (42-75); PLATELET COUNT 258 X10'3 (140-440); RED BLOOD COUNT 3.79 X10'6 (4.20-5.60); RED CELL DISTRIBUTION WIDTH 16.6 % (11.5-14.5); WHITE BLOOD COUNT 6.7 X10'3 (4.5-11.0)
[2022-06-22 07:39] LABS: APTT 28 SECONDS (22-32)
[2022-06-22 07:47] LABS: ALANINE AMINOTRANSFERASE 24 U/L (12-78); ALBUMIN 2.9 G/DL (3.4-5.0); ALBUMIN/GLOBULIN RATIO 0.5 (1.1-1.5); ALKALINE PHOSPHATASE 99 IU/L (46-116); ANION GAP 7 (8-16); ASPARTATE AMINO TRANSFERASE 33 U/L (10-37); BILIRUBIN,TOTAL 1.3 MG/DL (0.1-1.0); BLOOD UREA NITROGEN 13 MG/DL (7-18); BUN/CREATININE RATIO 13.7 (6.6-38.0); CALCIUM 8.2 MG/DL (8.5-10.1); CHLORIDE 101 MMOL/L (99-107); CHOL/HDL RATIO 3.3 (0.00-4.99); CHOLESTEROL 65 MG/DL (0-200); CREATININE 0.95 MG/DL (0.40-0.90); GLUCOSE 122 MG/DL (70-104); HDL CHOLESTEROL 20 MG/DL (35-60); LDL CHOLESTEROL 45 MG/DL (50-100); MAGNESIUM 1.7 MG/DL (1.5-2.4); PHOSPHORUS 3.5 MG/DL (2.3-4.5); SODIUM 142 MMOL/L (135-145); TOTAL CARBON DIOXIDE 34.3 MMOL/L (24-32); TOTAL PROTEIN 8.3 G/DL (6.4-8.2); TRIGLYCERIDES 32 MG/DL (20-135); eGFR 61 ML/MIN
[2022-06-22] MEDS: nicotine 14mg patch - 24hr TD SCH (08:00)
[2022-06-22] MEDS: K and/or MAG REPLACEMENT MC SCH ×2 (08:00→20:00)
--- NOTE | 2022-06-22 08:25 | NUR ---
Paged Dr jimenez: critical K of 3.0. Will replace per protocol.
[2022-06-22] MEDS: POTASSIUM BICARB 20meq eff tab 20 MEQ TABLET.EFF PO PRN ×3 (08:26→20:49)
[2022-06-22] MEDS: pantoprazole 40mg Tablet.DR PO SCH (08:27)
[2022-06-22] MEDS: carVEDilol 3.125mg tablet PO SCH ×2 (08:27→20:49)
[2022-06-22] MEDS: folic acid 1mg tablet PO SCH (08:27)
[2022-06-22] MEDS: docusate sod 100mg capsule PO SCH ×2 (08:28→20:46)
[2022-06-22] MEDS: losartan 25mg tablet PO SCH (08:28)
[2022-06-22] MEDS: aspirin 81mg, enteric-coated 1 TAB TABLET.DR PO SCH (08:28)
[2022-06-22] MEDS: furosemide 40mg/4ml inj IV SCH ×2 (08:29→20:48)
[2022-06-22] MEDS: heparin, porcine 5000 units/ml vial SQ SCH ×2 (08:29→20:47)
[2022-06-22] MEDS: atorvastatin 10mg tablet PO SCH (08:29)
[2022-06-22] MEDS: HYDROcodone/acetaminophen 5mg/325mg tablet PO PRN ×2 (08:29→12:30)
[2022-06-22] MEDS: multivitamins, therapeutics tablet PO SCH (08:29)
[2022-06-22] MEDS: budesonide 0.5mg/2ml UD nebule IH SCH ×2 (08:41→19:57)
--- NOTE | 2022-06-22 11:00 | NUR ---
Pt refused 1100 vitals, I was able to get BP and HR only.
--- NOTE | 2022-06-22 17:47 | NUR ---
paracentesis performed at bedside by IR. 5L off, VS stable and pt tolerated well. Post op VS in progress.
[2022-06-22] MEDS: albuterol 2.5 MG/3 ML nebule NEB PRN (19:57)
[2022-06-22] MEDS: niacin 500mg ER (Niaspan) tablet PO SCH (20:47)
[2022-06-22] MEDS: gabapentin 300mg capsule PO SCH (20:49)
[2022-06-23 02:00] VITALS: BP 96/58
--- NOTE | 2022-06-23 02:15 | NUR ---
Patient refused lab draw to recheck K level.
--- NOTE | 2022-06-23 06:00 | NUR ---
Patient refused 0600 vital signs to be obtained.
--- NOTE | 2022-06-23 06:00 | NUR ---
Pt. refused AM VS to be taken.
--- NOTE | 2022-06-23 06:35 | NUR ---
Problems reprioritized. Patient report given, questions answered & plan of care reviewed with MCKAYLA Owusu.
[2022-06-23 06:40] LABS: BASOPHILS # (AUTO) 0.1 X10'3 (0-0.2); EOSINOPHILS # (AUTO) 0.2 X10'3 (0-0.9); EOSINOPHILS % (AUTO) 2.7 % (0-6); HEMATOCRIT 35.5 % (35.0-45.0); LYMPHOCYTES # (AUTO) 1.1 X10'3 (1.1-4.8); LYMPHOCYTES % (AUTO) 16.1 % (21-51); MEAN CORPUSCULAR HEMOGLOBIN 31.6 PG (27.0-31.0); MEAN CORPUSCULAR HGB CONC 33.7 g/dL (33.0-36.5); MEAN CORPUSCULAR VOLUME 93.7 FL (78-98); MEAN PLATELET VOLUME 7.5 FL (7.4-10.4); MONOCYTES # (AUTO) 0.7 X10'3 (0-0.9); MONOCYTES % (AUTO) 9.8 % (2-12); NEUTROPHILS # (AUTO) 4.8 X10'3 (1.8-7.7); NEUTROPHILS % (AUTO) 70.4 % (42-75); PLATELET COUNT 261 X10'3 (140-440); RED BLOOD COUNT 3.78 X10'6 (4.20-5.60); RED CELL DISTRIBUTION WIDTH 16.6 % (11.5-14.5); WHITE BLOOD COUNT 6.9 X10'3 (4.5-11.0)
[2022-06-23 06:54] LABS: APTT 27 SECONDS (22-32)
[2022-06-23 07:09] LABS: ALANINE AMINOTRANSFERASE 18 U/L (12-78); ALBUMIN 2.3 G/DL (3.4-5.0); ALBUMIN/GLOBULIN RATIO 0.5 (1.1-1.5); ALKALINE PHOSPHATASE 89 IU/L (46-116); ANION GAP 7 (8-16); ASPARTATE AMINO TRANSFERASE 26 U/L (10-37); BLOOD UREA NITROGEN 16 MG/DL (7-18); BUN/CREATININE RATIO 15.7 (6.6-38.0); CALCIUM 8.1 MG/DL (8.5-10.1); CHLORIDE 100 MMOL/L (99-107); CREATININE 1.02 MG/DL (0.40-0.90); GLUCOSE 137 MG/DL (70-104); MAGNESIUM 1.6 MG/DL (1.5-2.4); PHOSPHORUS 3.8 MG/DL (2.3-4.5); POTASSIUM 4.7 MMOL/L (3.5-5.1); SODIUM 140 MMOL/L (135-145); TOTAL CARBON DIOXIDE 33.3 MMOL/L (24-32); TOTAL PROTEIN 7.2 G/DL (6.4-8.2); eGFR 56 ML/MIN
[2022-06-23] MEDS: albuterol 2.5 MG/3 ML nebule NEB PRN (07:34)
[2022-06-23] MEDS: budesonide 0.5mg/2ml UD nebule IH SCH (07:34)
[2022-06-23] MEDS: carVEDilol 3.125mg tablet PO SCH ×2 (08:00→11:41)
[2022-06-23] MEDS: nicotine 14mg patch - 24hr TD SCH (08:00)
[2022-06-23] MEDS: losartan 25mg tablet PO SCH (08:00)
[2022-06-23] MEDS: furosemide 40mg/4ml inj IV SCH (08:00)
[2022-06-23] MEDS: K and/or MAG REPLACEMENT MC SCH (08:00)
[2022-06-23] MEDS: pantoprazole 40mg Tablet.DR PO SCH (08:35)
[2022-06-23] MEDS: atorvastatin 10mg tablet PO SCH (08:35)
[2022-06-23] MEDS: docusate sod 100mg capsule PO SCH (08:35)
[2022-06-23] MEDS: potassium Cl 20 mEq SR tablet PO SCH (08:35)
[2022-06-23] MEDS: folic acid 1mg tablet PO SCH (08:35)
[2022-06-23] MEDS: aspirin 81mg, enteric-coated 1 TAB TABLET.DR PO SCH (08:36)
[2022-06-23] MEDS: multivitamins, therapeutics tablet PO SCH (08:36)
[2022-06-23] MEDS: heparin, porcine 5000 units/ml vial SQ SCH (08:36)
[2022-06-23 11:41] VITALS: BP 125/90
--- NOTE | 2022-06-23 12:03 | NUR ---
PAGER ID: [phone] MESSAGE: Aissatou Garcia [phone] Please DC stat. Denae has ride for pt. that is not flexible and meds need to be e-scripted and picked up as well. Thank you! Francoise [phone] Called kitchen for bag lunch
[2022-06-23] MEDS ORDERED: LOSA25TA41 PO (12:15)
[2022-06-23] MEDS ORDERED: NICO-631 TD (12:15)
[2022-06-23] MEDS ORDERED: GABA300C PO (12:15)
[2022-06-23] MEDS ORDERED: PANT40TA54 PO (12:15)
[2022-06-23] MEDS ORDERED: ASPI-1397 PO (12:15)
[2022-06-23] MEDS ORDERED: ATOR10TA70 PO (12:15)
[2022-06-23] MEDS ORDERED: CARV3.123 PO (12:15)
[2022-06-23] MEDS ORDERED: NALT50TA PO (12:15)
[2022-06-23] MEDS ORDERED: FURO40TA4 PO (12:15)
[2022-06-23] MEDS ORDERED: THIA100T66 PO (12:15)
[2022-06-23] MEDS ORDERED: CYCL5TAB PO (12:15)
[2022-06-23] MEDS ORDERED: BECL10.62 IH (12:15)
[2022-06-23] MEDS ORDERED: LEVA15HF6 IH (12:15)
[2022-06-23] MEDS ORDERED: NIAC100045 PO (12:15)
[2022-06-23] MEDS ORDERED: FOLI1TAB27 PO (12:15)
[2022-06-23] MEDS ORDERED: POTA-208 PO (12:15)
--- NOTE | 2022-06-23 12:17 | NUR ---
MD aware of tachy HR and aflutter. ok to discharge per hospitalist.
--- NOTE | 2022-06-23 12:19 | NUR ---
Pt. non-compliant and refusing to wear tele monitor
[2022-06-23 12:28] VITALS: BP 127/87
--- NOTE | 2022-06-23 12:41 | NUR ---
PAGER ID: [phone] MESSAGE: Aissatouozyz Garcia [id number] Pt. still aflutter 120s after coreg. Also- unaware if you knew A1c 6.4 in january? No hypoglycemic meds ordered. Can you give a quick call if you are still wanting discharge w/o these meds? Francoise [phone]
--- NOTE | 2022-06-23 12:41 | NUR ---
Attempted to administer lasix. Pt. does not want it now as she is taking a shower. refusing to wear non-slip socks or have assistance. Demanding full privacy.
[2022-06-23] MEDS ORDERED: METF-1203 PO (12:46)
--- NOTE | 2022-06-23 13:02 | NUR ---
DISCHARGE NOTE: Pt. removed her own PIV. Visualized in the trash by RN and cannula intact. No s/sx bleeding noted. Reviewed discharge paperwork with pt. Hospitalist called floor. Is aware of HA1C but states not to follow protocol but to discharge. States he will order hypoglycemic. Discussed new medications with pt. And possible ASE and medication compliance. Stressed compliance. Medications have been renewed and sent to preferred pharmacy in [place]. Pt. states she has family in [place] and she agrees to f/u with a PCP and call us when she does. Pt. has already removed her tele and it was returned. Pt. plans to attend rehab and abstain from drug and alcohol use.
[2022-06-26] MEDS ORDERED: folic acid 1mg tablet PO SCH (08:00)
[2022-06-26] MEDS ORDERED: thiamine 100mg tablet PO SCH (08:00)
== END 2022-06-23 13:41 | disposition home or self-care (01) | DRG 194 ==
LOC: ER 12:31 → ED HOLD 17:52 → EDBEDREQTM 20:01 → EDBEDREQ 20:01 → PCU 3S 21:48
PROVIDERS: ADMIT Internal Medicine; ATTEND Internal Medicine
PROC: 0W9G3ZZ Drainage of Peritoneal Cavity, Percutaneous Approach (ICD-10-PCS; principal; 2022-06-22)
DX: I50.23 Acute on chronic systolic (congestive) heart failure (principal); D63.8 Anemia in other chronic diseases classified elsewhere; I42.9 Cardiomyopathy, unspecified; K72.10 Chronic hepatic failure without coma; R18.8 Other ascites; E78.5 Hyperlipidemia, unspecified; E87.6 Hypokalemia; F10.20 Alcohol dependence, uncomplicated; F15.90 Other stimulant use, unspecified, uncomplicated; F17.210 Nicotine dependence, cigarettes, uncomplicated; F32.A Depression, unspecified; K21.9 Gastro-esophageal reflux disease without esophagitis; Z20.822 Contact with and (suspected) exposure to COVID-19; G89.29 Other chronic pain; J44.9 Chronic obstructive pulmonary disease, unspecified; Z59.00 Homelessness unspecified; Z79.899 Other long term (current) drug therapy; Z79.82 Long term (current) use of aspirin; Z88.8 Allergy status to other drugs, medicaments and biological substances
CPT/HCPCS: 36415; 49083; 71045; 80053; 80061; 80305; 80320; 81001; 81025; 82150; 83690; 83735; 83880; 84100; 84484; 85025; 85610; 85730; 87040; 87811; 93005; 93306; 94640; 94760; 99285; A6258; G0378; J1644; J1940; J3475; J3480

== ENCOUNTER 2022-07-16 10:28 | Inpatient (IN) | payer MEDICAID ==
[~2022-07-16] VITALS: Ht 175.3 cm; Wt 120.0 kg
[~2022-07-16 10:28] MED LIST changes: -ASPI-1071 PO; +ASPI-1397 PO; -ATOR10TA PO; +ATOR10TA70 PO; +CARV3.123 PO; -CEPH-585 PO; -COR3.125T PO; -FURO-150 PO; -FURO20TA4 PO; +LOSA25TA41 PO; +METF-1203 PO; +NIAC100045 PO; +NICO-631 TD; +POTA-208 PO; -SPIR25TA PO; -SPIR25TA5 PO; +THIA100T66 PO; -thiamine tablet PO
[2022-07-16 13:04] LABS: BASOPHILS # (AUTO) 0.1 X10'3 (0-0.2); EOSINOPHILS # (AUTO) 0.3 X10'3 (0-0.9); EOSINOPHILS % (AUTO) 3.6 % (0-6); HEMATOCRIT 35.6 % (35.0-45.0); HEMOGLOBIN 11.7 g/dl (12.0-16.0); LYMPHOCYTES % (AUTO) 10.8 % (21-51); MEAN CORPUSCULAR HEMOGLOBIN 30.8 PG (27.0-31.0); MEAN CORPUSCULAR HGB CONC 32.8 g/dL (33.0-36.5); MEAN CORPUSCULAR VOLUME 93.7 FL (78-98); MEAN PLATELET VOLUME 7.1 FL (7.4-10.4); MONOCYTES % (AUTO) 10.8 % (2-12); NEUTROPHILS # (AUTO) 6.9 X10'3 (1.8-7.7); NEUTROPHILS % (AUTO) 73.8 % (42-75); PLATELET COUNT 365 X10'3 (140-440); RED CELL DISTRIBUTION WIDTH 15.6 % (11.5-14.5); WHITE BLOOD COUNT 9.4 X10'3 (4.5-11.0)
[2022-07-16 13:22] LABS: ALANINE AMINOTRANSFERASE 26 U/L (12-78); ALBUMIN/GLOBULIN RATIO 0.6 (1.1-1.5); ALKALINE PHOSPHATASE 97 IU/L (46-116); ANION GAP 6 (8-16); ASPARTATE AMINO TRANSFERASE 26 U/L (10-37); BILIRUBIN,TOTAL 0.8 MG/DL (0.1-1.0); BLOOD UREA NITROGEN 13 MG/DL (7-18); BUN/CREATININE RATIO 13.1 (6.6-38.0); CALCIUM 8.4 MG/DL (8.5-10.1); CHLORIDE 104 MMOL/L (99-107); CREATININE 0.99 MG/DL (0.40-0.90); GLUCOSE 101 MG/DL (70-104); POTASSIUM 3.6 MMOL/L (3.5-5.1); SODIUM 142 MMOL/L (135-145); TOTAL CARBON DIOXIDE 31.6 MMOL/L (24-32); TOTAL PROTEIN 7.7 G/DL (6.4-8.2); eGFR 58 ML/MIN
[2022-07-16] MEDS ORDERED: furosemide 10 MG/1 ML 10ml inj IV ONE (20:00)
[2022-07-16] MEDS ORDERED: diltiazem 5mg/ml 5ml inj. IV ONE (20:00)
[2022-07-16] MEDS ORDERED: diltiazem 30mg tablet PO ONE (20:00)
[2022-07-16] MEDS ORDERED: temazepam 15mg capsule PO PRN (21:00)
[2022-07-16] MEDS ORDERED: diphenhydrAMINE 50 mg/ml inj IV PRN (21:25)
[2022-07-16] MEDS ORDERED: morphine 2 MG/ML inj. syringe IV PRN ×2 (21:25)
[2022-07-16] MEDS ORDERED: diphenhydrAMINE 25mg capsule PO PRN (21:25)
[2022-07-16] MEDS ORDERED: bisacodyl 10mg suppository rectal RC PRN (21:25)
[2022-07-16] MEDS ORDERED: acetaminophen 325mg tablet PO PRN ×2 (21:25)
[2022-07-16] MEDS ORDERED: HYDROcodone/acetaminophen 5mg/325mg tablet PO PRN (21:25)
[2022-07-16] MEDS ORDERED: ondansetron 4mg rapidly disintigrating tab PO PRN (21:25)
[2022-07-16] MEDS ORDERED: ondansetron/PF 4mg/2ml inj IV PRN (21:25)
[2022-07-16] MEDS ORDERED: mag hydrox/Alum hydrox/simeth 30ml oral suspension PO PRN (21:25)
[2022-07-16] MEDS ORDERED: magnesium hydroxide 30ml (MOM) UD suspension PO PRN (21:25)
[2022-07-16] MEDS ORDERED: acetaminophen 650mg rectal suppository RC PRN (21:25)
[2022-07-16] MEDS ORDERED: HYDROcodone/acetaminophen 10/325mg tab PO PRN (21:25)
[2022-07-16] MEDS ORDERED: glucagon, human recombinant 1mg kit SUBCUT PRN (21:30)
[2022-07-16] MEDS ORDERED: DEXTROSE 15 GM of carb/4 tabs (each vial/BOTTLE has 4 tablets) PO PRN ×2 (21:30)
[2022-07-16] MEDS ORDERED: insulin Lispro (HumaLOG) vial - multi-dose SQ SCH (21:30)
[2022-07-16] MEDS ORDERED: dextrose 50%-water 50ml dispensing syringe IV PRN ×2 (21:30)
[2022-07-16] MEDS ORDERED: MESSAGE TO PHARMACY PO ONE (21:30)
[2022-07-16] MEDS ORDERED: diltiazem-D5W 125mg/125ml 125 ML IV SCH (21:40)
[2022-07-16 21:59] LABS: LIPASE 133 U/L (73-393)
[2022-07-16 22:00] LABS: MAGNESIUM 1.9 MG/DL (1.5-2.4); PHOSPHORUS 3.9 MG/DL (2.3-4.5)
[2022-07-16 22:01] LABS: APTT 31 SECONDS (22-32); D-DIMER 3.15 MG/L FEU (0-0.50)
[2022-07-16 22:03] LABS: HEMOGLOBIN A1C 6.1 % (4.5-6.2)
[2022-07-17] MEDS ORDERED: diltiazem-NS 100mg/100ml 100 ML IV SCH (00:32)
[2022-07-17] MEDS ORDERED: SPIR25TA5 PO (01:07)
[2022-07-17] MEDS ORDERED: APIX5TAB3 PO (01:07)
[2022-07-17] MEDS ORDERED: GABA300C PO (01:23)
[2022-07-17] MEDS ORDERED: CYCL-392 PO (01:23)
[2022-07-17] MEDS ORDERED: FURO-149 PO (01:23)
[2022-07-17] MEDS ORDERED: BECL10.6 INH (01:23)
[2022-07-17] MEDS ORDERED: FOLI0.4T14 PO (01:23)
[2022-07-17] MEDS ORDERED: ASPI81TA52 PO (01:23)
[2022-07-17] MEDS ORDERED: CARV3.122 PO (01:23)
[2022-07-17] MEDS ORDERED: ATOR10TA PO (01:23)
[2022-07-17] MEDS ORDERED: LOSA25TA96 PO (01:29)
[2022-07-17] MEDS ORDERED: NALT50TA PO (01:29)
[2022-07-17] MEDS ORDERED: LEVA15HF4 INH (01:29)
[2022-07-17] MEDS ORDERED: METF-436 PO (01:29)
[2022-07-17] MEDS ORDERED: NIA500ERT PO (01:38)
[2022-07-17] MEDS ORDERED: NICO-731 TD (01:43)
[2022-07-17] MEDS ORDERED: POTA-82 PO (01:43)
[2022-07-17] MEDS ORDERED: PANT-47 PO (01:43)
[2022-07-17] MEDS ORDERED: THIA100T73 PO (01:43)
[2022-07-17] MEDS ORDERED: cyclobenzaprine 10mg tablet PO PRN (02:20)
--- NOTE | 2022-07-17 03:07 | NUR ---
Pt will not follow instructions for a clean catch urine specimen. Each attempt has been contaminated by pt putting paper in the hat.
[2022-07-17 07:55] LABS: BASOPHILS # (AUTO) 0.1 X10'3 (0-0.2); BASOPHILS % (AUTO) 1.1 % (0-1); EOSINOPHILS # (AUTO) 0.3 X10'3 (0-0.9); EOSINOPHILS % (AUTO) 4.5 % (0-6); HEMATOCRIT 34.9 % (35.0-45.0); HEMOGLOBIN 11.6 g/dl (12.0-16.0); LYMPHOCYTES # (AUTO) 0.9 X10'3 (1.1-4.8); LYMPHOCYTES % (AUTO) 11.8 % (21-51); MEAN CORPUSCULAR HEMOGLOBIN 31.5 PG (27.0-31.0); MEAN CORPUSCULAR HGB CONC 33.1 g/dL (33.0-36.5); MEAN CORPUSCULAR VOLUME 95.1 FL (78-98); MONOCYTES # (AUTO) 0.8 X10'3 (0-0.9); NEUTROPHILS # (AUTO) 5.2 X10'3 (1.8-7.7); NEUTROPHILS % (AUTO) 71.6 % (42-75); PLATELET COUNT 333 X10'3 (140-440); RED BLOOD COUNT 3.67 X10'6 (4.20-5.60); RED CELL DISTRIBUTION WIDTH 15.8 % (11.5-14.5); WHITE BLOOD COUNT 7.2 X10'3 (4.5-11.0)
[2022-07-17 07:55] LABS: CLARITY,URINE SLIGHTLY CLOUDY (Clear); GLUCOSE, URINE NEGATIVE (Neg); KETONES,URINE NEGATIVE (Neg); LEUKOCYTE ESTERASE ,URINE NEGATIVE (Neg); NITRITES, URINE NEGATIVE (Neg); OCCULT BLOOD,URINE NEGATIVE (Neg); PH,URINE 5.5 (4.8-8.0); PROTEIN,URINE NEGATIVE (Neg); UROBILINOGEN,URINE 0.2 E.U/dL (0.2-1.0)
[2022-07-17 08:00] LABS: COLOR,URINE DARK YELLOW (Yellow); UA COLLECTION TYPE CLN CATCH MIDSTREAM
[2022-07-17] MEDS: nicotine 14mg patch - 24hr TD SCH (08:00)
[2022-07-17] MEDS ORDERED: enoxaparin 100mg/ml syringe SUBCUT SCH (08:00)
[2022-07-17] MEDS ORDERED: carVEDilol 3.125mg tablet PO SCH (08:00)
[2022-07-17] MEDS: docusate sod 100mg capsule PO SCH ×2 (08:00→20:48)
[2022-07-17] MEDS: apixaban 5mg tablet PO SCH ×2 (08:00→08:34)
[2022-07-17] MEDS ORDERED: heparin, porcine 5000 units/ml vial SQ SCH (08:00)
[2022-07-17] MEDS ORDERED: albuterol 2.5 MG/3 ML nebule NEB PRN (08:00)
[2022-07-17 08:04] LABS: BACTERIA,URINE FEW /HPF (Neg); HYALINE CASTS 0-3 /LPF (NEGATIVE); MUCUS STRANDS MODERATE /LPF (Neg); RBC,URINE NONE SEEN /HPF (0-2); SQUAMOUS EPITHELIAL CELL,UR MODERATE /LPF (FEW); WBC,URINE 0-4 /HPF (0-4)
[2022-07-17] MEDS: budesonide 0.5mg/2ml UD nebule IH SCH ×2 (08:10→19:39)
[2022-07-17 08:15] LABS: ALANINE AMINOTRANSFERASE 24 U/L (12-78); ALBUMIN 2.7 G/DL (3.4-5.0); ALBUMIN/GLOBULIN RATIO 0.6 (1.1-1.5); ALKALINE PHOSPHATASE 80 IU/L (46-116); ANION GAP 5 (8-16); ASPARTATE AMINO TRANSFERASE 24 U/L (10-37); BILIRUBIN,TOTAL 0.8 MG/DL (0.1-1.0); BLOOD UREA NITROGEN 11 MG/DL (7-18); BUN/CREATININE RATIO 13.3 (6.6-38.0); CALCIUM 8.1 MG/DL (8.5-10.1); CHLORIDE 106 MMOL/L (99-107); CREATININE 0.83 MG/DL (0.40-0.90); GLUCOSE 112 MG/DL (70-104); POTASSIUM 3.3 MMOL/L (3.5-5.1); SODIUM 144 MMOL/L (135-145); TOTAL CARBON DIOXIDE 32.6 MMOL/L (24-32); TOTAL PROTEIN 7.2 G/DL (6.4-8.2); eGFR 71 ML/MIN
--- NOTE | 2022-07-17 08:30 | NUR ---
PAGE SENT TO DR INFANTE REGARDING K 3.3 AND PAT ON LASIX.
[2022-07-17] MEDS: thiamine 100mg tablet PO SCH (08:33)
[2022-07-17] MEDS: spironolactone 25 MG tablet PO SCH (08:33)
[2022-07-17] MEDS: aspirin 81mg, enteric-coated 1 TAB TABLET.DR PO SCH (08:33)
[2022-07-17] MEDS: pantoprazole 40mg Tablet.DR PO SCH (08:33)
[2022-07-17] MEDS: naltrexone 50mg tablet PO SCH (08:34)
[2022-07-17] MEDS: atorvastatin 10mg tablet PO SCH (08:34)
[2022-07-17] MEDS: folic acid 0.4mg tablet PO SCH (08:34)
[2022-07-17] MEDS: losartan 25mg tablet PO SCH (08:34)
[2022-07-17] MEDS ORDERED: potassium Cl 40MEQ/1/2NS 520ml 520 ML IV PRN ×2 (11:10)
[2022-07-17] MEDS ORDERED: potassium Cl 20 mEq SR tablet PO PRN (11:10)
[2022-07-17] MEDS ORDERED: iohexol 350MG/ML 100ml bottle IV ONE (11:20)
[2022-07-17] MEDS: furosemide 10 MG/1 ML 10ml inj IV SCH (11:22)
[2022-07-17] MEDS: potassium Cl 20 mEq SR tablet PO PRN ×2 (11:22→20:43)
--- NOTE | 2022-07-17 12:00 | NUR ---
Patient up to restroom at this time independently, gait steady, balanced, no signs of distress noted.
--- NOTE | 2022-07-17 15:30 | NUR ---
Patient up to bathroom at this time, gait steady, balanced, no signs of distress noted, independently able to return to room.
--- NOTE | 2022-07-17 18:35 | NUR ---
Received report from executive administratorMCKAYLA Herman. Patient to follow shortly.
[2022-07-17 19:05] VITALS: BP 132/86
--- NOTE | 2022-07-17 19:15 | NUR ---
Patient arrived to floor via gurney. A&O, up ad nettie to bathroom.
--- NOTE | 2022-07-17 19:30 | NUR ---
Pt. is very verbal and loud demanding that we respect her, and that she is here for help and not questions. Explained to patient that I was her nurse and that questions were necessary in order to assess her fully. Pt. pulled a band aid off of her left forearm which resulted in a skin tear. Patient will not allow a picture to be taken at this time. Optifoam provided for protection.
[2022-07-17] MEDS: K and/or MAG REPLACEMENT MC SCH (20:48)
[2022-07-17] MEDS: carvedilol 6.25mg tablet PO SCH (20:51)
[2022-07-17] MEDS ORDERED: insulin glargine (Lantus) pen - multi-dose SQ SCH (21:00)
[2022-07-17] MEDS ORDERED: gabapentin 300mg capsule PO SCH (21:00)
--- NOTE | 2022-07-17 21:55 | NUR ---
Patient refused for 2nd set of Vitals to be taken, and has since pulled off the optifoam.
[2022-07-18 04:00] VITALS: BP 119/81
--- NOTE | 2022-07-18 04:00 | NUR ---
Allowed for vital signs to be taken. Currently sitting on edge of the bed eating dry cereal. Patient does not like to be bothered by staff and wants her door kept closed. Unable to completed 2 RN skin check or complete admit questions this shift.
[2022-07-18 06:00] VITALS: BP 111/85
--- NOTE | 2022-07-18 06:10 | NUR ---
Problems reprioritized. Patient report given, questions answered & plan of care reviewed with Lynne BLOCK.
[2022-07-18 06:12] LABS: BASOPHILS # (AUTO) 0.1 X10'3 (0-0.2); EOSINOPHILS # (AUTO) 0.4 X10'3 (0-0.9); EOSINOPHILS % (AUTO) 4.7 % (0-6); HEMATOCRIT 34.3 % (35.0-45.0); HEMOGLOBIN 11.4 g/dl (12.0-16.0); LYMPHOCYTES # (AUTO) 0.9 X10'3 (1.1-4.8); LYMPHOCYTES % (AUTO) 12.1 % (21-51); MEAN CORPUSCULAR HEMOGLOBIN 31.3 PG (27.0-31.0); MEAN CORPUSCULAR HGB CONC 33.4 g/dL (33.0-36.5); MEAN CORPUSCULAR VOLUME 93.8 FL (78-98); MONOCYTES # (AUTO) 0.8 X10'3 (0-0.9); MONOCYTES % (AUTO) 11.2 % (2-12); NEUTROPHILS # (AUTO) 5.3 X10'3 (1.8-7.7); PLATELET COUNT 324 X10'3 (140-440); RED BLOOD COUNT 3.65 X10'6 (4.20-5.60); RED CELL DISTRIBUTION WIDTH 15.9 % (11.5-14.5); WHITE BLOOD COUNT 7.5 X10'3 (4.5-11.0)
[2022-07-18 06:35] LABS: ALANINE AMINOTRANSFERASE 18 U/L (12-78); ALBUMIN 2.5 G/DL (3.4-5.0); ALBUMIN/GLOBULIN RATIO 0.5 (1.1-1.5); ALKALINE PHOSPHATASE 84 IU/L (46-116); ANION GAP 3 (8-16); ASPARTATE AMINO TRANSFERASE 23 U/L (10-37); BILIRUBIN,TOTAL 0.6 MG/DL (0.1-1.0); BLOOD UREA NITROGEN 13 MG/DL (7-18); BUN/CREATININE RATIO 12.7 (6.6-38.0); CALCIUM 7.9 MG/DL (8.5-10.1); CHLORIDE 103 MMOL/L (99-107); CREATININE 1.02 MG/DL (0.40-0.90); GLUCOSE 139 MG/DL (70-104); POTASSIUM 3.3 MMOL/L (3.5-5.1); SODIUM 139 MMOL/L (135-145); TOTAL CARBON DIOXIDE 32.6 MMOL/L (24-32); TOTAL PROTEIN 7.1 G/DL (6.4-8.2); eGFR 56 ML/MIN
[2022-07-18] MEDS: K and/or MAG REPLACEMENT MC SCH (08:00)
[2022-07-18] MEDS: naltrexone 50mg tablet PO SCH (08:00)
[2022-07-18] MEDS: budesonide 0.5mg/2ml UD nebule IH SCH (08:00)
[2022-07-18] MEDS: furosemide 10 MG/1 ML 10ml inj IV SCH (09:18)
[2022-07-18] MEDS: folic acid 0.4mg tablet PO SCH (09:18)
[2022-07-18] MEDS: nicotine 14mg patch - 24hr TD SCH (09:19)
[2022-07-18] MEDS: spironolactone 25 MG tablet PO SCH (09:19)
[2022-07-18] MEDS: aspirin 81mg, enteric-coated 1 TAB TABLET.DR PO SCH (09:19)
[2022-07-18] MEDS: docusate sod 100mg capsule PO SCH (09:19)
[2022-07-18] MEDS: potassium Cl 20 mEq SR tablet PO PRN (09:19)
[2022-07-18] MEDS: losartan 25mg tablet PO SCH (09:19)
[2022-07-18] MEDS: atorvastatin 10mg tablet PO SCH (09:20)
[2022-07-18] MEDS: carvedilol 6.25mg tablet PO SCH (09:20)
[2022-07-18] MEDS: thiamine 100mg tablet PO SCH (09:20)
[2022-07-18] MEDS: pantoprazole 40mg Tablet.DR PO SCH (09:20)
[2022-07-18] MEDS ORDERED: LIDOcaine 1%/PF 5ML 10 MG/ML VIAL ONE (09:59)
--- NOTE | 2022-07-18 10:20 | NUR ---
Met with patient in regards to alcohol use and to see if patient was interested in resources for treatment options. Patient is interested in treatment options. I gave patient [facility] number to call and get process started. I also gave a list of resources and my card to call me with any questions.
[2022-07-18 10:23] VITALS: BP 138/90
[2022-07-18 10:50] VITALS: BP 113/78
[2022-07-18] MEDS ORDERED: albumin (human) 25% 100 ML IV solution IV ONE (11:00)
--- NOTE | 2022-07-18 11:39 | NUR ---
Pt. refusing PT/OT eval and EKG. aware
[2022-07-18] MEDS ORDERED: CARV6.253 PO (12:08)
--- NOTE | 2022-07-18 12:09 | NUR ---
PAGER ID: [phone] MESSAGE: [phone] refusing IV, albumin, glucose check and vital signs. Unsure if you want to discharge patient at this point. Paracentesis has been completed. Thank you, Lynne BLOCK
--- NOTE | 2022-07-18 13:31 | NUR ---
pt. discharged with paperwork and pending medicine to be called to [facility] by MCKAYLA. IV out, axox4 with behavioral issues.
== END 2022-07-18 13:30 | disposition home or self-care (01) | DRG 194 ==
LOC: ER 10:28 → ED HOLD 21:25 → PCU 3S 07-17 19:00
PROVIDERS: ADMIT Family Medicine; ATTEND Family Medicine
PROC: B32T1ZZ Computerized Tomography (CT Scan) of Left Pulmonary Artery using Low Osmolar Contrast (ICD-10-PCS; 2022-07-17)
PROC: B3201ZZ Computerized Tomography (CT Scan) of Thoracic Aorta using Low Osmolar Contrast (ICD-10-PCS; 2022-07-17)
PROC: B32S1ZZ Computerized Tomography (CT Scan) of Right Pulmonary Artery using Low Osmolar Contrast (ICD-10-PCS; 2022-07-17)
PROC: 0W9G3ZZ Drainage of Peritoneal Cavity, Percutaneous Approach (ICD-10-PCS; principal; 2022-07-18)
DX: I11.0 Hypertensive heart disease with heart failure (principal); N17.9 Acute kidney failure, unspecified; I27.20 Pulmonary hypertension, unspecified; I42.7 Cardiomyopathy due to drug and external agent; I48.92 Unspecified atrial flutter; K72.10 Chronic hepatic failure without coma; R18.8 Other ascites; D64.9 Anemia, unspecified; E11.65 Type 2 diabetes mellitus with hyperglycemia; B19.20 Unspecified viral hepatitis C without hepatic coma; I50.23 Acute on chronic systolic (congestive) heart failure; E78.5 Hyperlipidemia, unspecified; F15.10 Other stimulant abuse, uncomplicated; E87.6 Hypokalemia; F17.210 Nicotine dependence, cigarettes, uncomplicated; G89.4 Chronic pain syndrome; F10.20 Alcohol dependence, uncomplicated; M54.9 Dorsalgia, unspecified; J44.9 Chronic obstructive pulmonary disease, unspecified; K21.9 Gastro-esophageal reflux disease without esophagitis; K70.9 Alcoholic liver disease, unspecified; Z59.00 Homelessness unspecified; Z79.01 Long term (current) use of anticoagulants; Z91.19 Patient's noncompliance with other medical treatment and regimen; Z88.8 Allergy status to other drugs, medicaments and biological substances; Z79.899 Other long term (current) drug therapy
CPT/HCPCS: 36415; 49083; 71045; 71275; 80053; 81001; 82948; 83036; 83690; 83735; 83880; 84100; 84484; 85025; 85379; 85610; 85730; 93005; 94640; 94760; 96374; 96375; 99285; A6212; A6258; G0378; J1815; J1940; J3490; Q9967

== ENCOUNTER 2022-07-28 07:05 | Emergency (ER) | payer MEDICAID ==
[~2022-07-28] VITALS: Ht 175.3 cm; Wt 120.0 kg
[~2022-07-28 07:05] MED LIST changes: +APIX5TAB3 PO; -ASPI-1397 PO; +ASPI81TA52 PO; +ATOR10TA PO; -ATOR10TA70 PO; +BECL10.6 INH; -BECL10.62 IH; -CARV3.123 PO; +CARV6.253 PO; +CYCL-392 PO; -CYCL5TAB PO; +FOLI0.4T14 PO; -FOLI1TAB27 PO; +FURO-149 PO; -FURO40TA4 PO; +LEVA15HF4 INH; -LEVA15HF6 IH; -LOSA25TA41 PO; +LOSA25TA96 PO; -METF-1203 PO; +METF-436 PO; +NIA500ERT PO; -NIAC100045 PO; -NICO-631 TD; +NICO-731 TD; +PANT-47 PO; -PANT40TA54 PO; -POTA-208 PO; +POTA-82 PO; +SPIR25TA5 PO; -THIA100T66 PO; +THIA100T73 PO
[2022-07-28] MEDS ORDERED: furosemide 10 MG/1 ML 10ml inj IV ONE (08:45)
[2022-07-28 08:47] LABS: BASOPHILS # (AUTO) 0.1 X10'3 (0-0.2); BASOPHILS % (AUTO) 1.2 % (0-1); EOSINOPHILS # (AUTO) 0.2 X10'3 (0-0.9); EOSINOPHILS % (AUTO) 2.1 % (0-6); LYMPHOCYTES % (AUTO) 13.5 % (21-51); MEAN CORPUSCULAR HGB CONC 33.3 g/dL (33.0-36.5); MEAN CORPUSCULAR VOLUME 93.1 FL (78-98); MEAN PLATELET VOLUME 7.4 FL (7.4-10.4); MONOCYTES # (AUTO) 0.6 X10'3 (0-0.9); MONOCYTES % (AUTO) 8.3 % (2-12); NEUTROPHILS # (AUTO) 5.7 X10'3 (1.8-7.7); NEUTROPHILS % (AUTO) 74.9 % (42-75); PLATELET COUNT 301 X10'3 (140-440); RED BLOOD COUNT 3.86 X10'6 (4.20-5.60); RED CELL DISTRIBUTION WIDTH 15.7 % (11.5-14.5); WHITE BLOOD COUNT 7.7 X10'3 (4.5-11.0)
[2022-07-28 08:54] LABS: ALBUMIN 2.7 G/DL (3.4-5.0); ASPARTATE AMINO TRANSFERASE 27 U/L (10-37)
--- NOTE | 2022-07-28 09:00 | NUR ---
spoke to dr. smith Er, he said its yogesh pt have him put in the alcoholic protocol orders. Called shashi, he said hes in meetings, has not seen pt, he is an ER pt.
[2022-07-28 09:08] LABS: ALANINE AMINOTRANSFERASE 21 U/L (12-78); ALBUMIN/GLOBULIN RATIO 0.6 (1.1-1.5); ALKALINE PHOSPHATASE 92 IU/L (46-116); ANION GAP 6 (8-16); BILIRUBIN,TOTAL 0.8 MG/DL (0.1-1.0); BLOOD UREA NITROGEN 8 MG/DL (7-18); BUN/CREATININE RATIO 8.9 (6.6-38.0); CALCIUM 8.1 MG/DL (8.5-10.1); CHLORIDE 102 MMOL/L (99-107); GLUCOSE 120 MG/DL (70-104); POTASSIUM 3.5 MMOL/L (3.5-5.1); SODIUM 139 MMOL/L (135-145); TOTAL CARBON DIOXIDE 31.5 MMOL/L (24-32); TOTAL PROTEIN 7.3 G/DL (6.4-8.2); eGFR 65 ML/MIN
[2022-07-28] MEDS ORDERED: LIDOcaine 1% (10mg/ml)w/preservative inj. 20ml MDV IJ STA (09:35)
[2022-07-28] MEDS ORDERED: LIDOcaine 1% 30ml preserv. free vial IJ STA (09:35)
[2022-07-28] MEDS ORDERED: losartan 50mg tablet PO STA (11:18)
[2022-07-28] MEDS ORDERED: spironolactone 25 MG tablet PO SCH (11:20)
--- NOTE | 2022-07-28 12:00 | NUR ---
DR. NARVAEZ AT BEDSIDE DOING PARACENTESIS.
[2022-07-28 14:35] VITALS: BP 140/101
[2022-07-28] MEDS ORDERED: carVEDilol 3.125mg tablet PO SCH (20:00)
== END 2022-07-28 14:45 | disposition home or self-care (01) ==
LOC: ER 07:06
DX: R18.8 Other ascites (principal); I50.9 Heart failure, unspecified; R06.02 Shortness of breath; J44.9 Chronic obstructive pulmonary disease, unspecified; K21.9 Gastro-esophageal reflux disease without esophagitis; G89.29 Other chronic pain; M54.9 Dorsalgia, unspecified; F17.200 Nicotine dependence, unspecified, uncomplicated; F15.10 Other stimulant abuse, uncomplicated; Z59.00 Homelessness unspecified; Z88.6 Allergy status to analgesic agent; Z79.899 Other long term (current) drug therapy; Z79.82 Long term (current) use of aspirin; Z79.1 Long term (current) use of non-steroidal anti-inflammatories (NSAID); Z79.2 Long term (current) use of antibiotics
CPT/HCPCS: 36415; 49083; 71045; 80053; 83880; 84484; 85025; 96374; 99285; J1940

== ENCOUNTER 2022-08-01 16:11 | Emergency (ER) | payer MEDICAID ==
[~2022-08-01] VITALS: Ht 175.3 cm; Wt 109.0 kg
[2022-08-01 16:27] VITALS: BP 136/92
== END 2022-08-01 18:06 | disposition home or self-care (01) ==
LOC: ER 16:12
DX: R18.8 Other ascites (principal); K74.60 Unspecified cirrhosis of liver; J44.9 Chronic obstructive pulmonary disease, unspecified; I50.9 Heart failure, unspecified; G89.29 Other chronic pain; K21.9 Gastro-esophageal reflux disease without esophagitis; F17.200 Nicotine dependence, unspecified, uncomplicated; F15.10 Other stimulant abuse, uncomplicated; Z59.00 Homelessness unspecified; Z88.6 Allergy status to analgesic agent; Z79.899 Other long term (current) drug therapy; Z79.2 Long term (current) use of antibiotics; Z79.82 Long term (current) use of aspirin; Z79.84 Long term (current) use of oral hypoglycemic drugs
CPT/HCPCS: 99284

== ENCOUNTER 2022-09-11 08:09 | Emergency (ER) | payer MEDICAID ==
[~2022-09-11] VITALS: Ht 175.3 cm; Wt 93.2 kg
[2022-09-11] MEDS ORDERED: bacitracin 15gm ointment TP ONE (09:15)
[2022-09-11] MEDS ORDERED: FURO-150 PO (09:18)
== END 2022-09-11 09:39 | disposition home or self-care (01) ==
LOC: ER 08:10
DX: L03.119 Cellulitis of unspecified part of limb (principal); I50.9 Heart failure, unspecified; J44.9 Chronic obstructive pulmonary disease, unspecified; K21.9 Gastro-esophageal reflux disease without esophagitis; G89.29 Other chronic pain; M54.50 Low back pain, unspecified; F15.20 Other stimulant dependence, uncomplicated; Z88.5 Allergy status to narcotic agent; Z59.00 Homelessness unspecified
CPT/HCPCS: 99283

== ENCOUNTER 2022-09-19 21:11 | Inpatient (IN) | payer MEDICAID ==
[~2022-09-19] VITALS: Ht 175.3 cm; Wt 99.8 kg
[~2022-09-19 21:11] MED LIST changes: +FURO-150 PO
[2022-09-19] MEDS ORDERED: ipratropium/albuterol 3ml nebule NEB STA (21:20)
[2022-09-19] MEDS ORDERED: ipratropium/albuterol 3ml nebule ONE (21:26)
[2022-09-19] MEDS ORDERED: methylPREDNISolone sod succ 125mg/2ml vial IV ONE (21:45)
[2022-09-19] MEDS ORDERED: furosemide 40mg/4ml inj IV ONE (21:45)
[2022-09-19 21:57] LABS: BASOPHILS % (AUTO) 0.2 % (0-1); EOSINOPHILS % (AUTO) 0.2 % (0-6); HEMATOCRIT 36.1 % (35.0-45.0); HEMOGLOBIN 11.7 g/dl (12.0-16.0); LYMPHOCYTES # (AUTO) 0.3 X10'3 (1.1-4.8); LYMPHOCYTES % (AUTO) 1.9 % (21-51); MEAN CORPUSCULAR HEMOGLOBIN 29.3 PG (27.0-31.0); MEAN CORPUSCULAR HGB CONC 32.5 g/dL (33.0-36.5); MEAN CORPUSCULAR VOLUME 90.3 FL (78-98); MEAN PLATELET VOLUME 7.3 FL (7.4-10.4); MONOCYTES # (AUTO) 0.6 X10'3 (0-0.9); MONOCYTES % (AUTO) 3.6 % (2-12); NEUTROPHILS % (AUTO) 94.1 % (42-75); PLATELET COUNT 301 X10'3 (140-440); RED BLOOD COUNT 3.99 X10'6 (4.20-5.60); RED CELL DISTRIBUTION WIDTH 15.2 % (11.5-14.5)
[2022-09-19 22:11] LABS: ALANINE AMINOTRANSFERASE 20 U/L (12-78); ALBUMIN 3.3 G/DL (3.4-5.0); ALBUMIN/GLOBULIN RATIO 0.7 (1.1-1.5); ALKALINE PHOSPHATASE 85 IU/L (46-116); ANION GAP 9 (8-16); ASPARTATE AMINO TRANSFERASE 26 U/L (10-37); BILIRUBIN,TOTAL 1.1 MG/DL (0.1-1.0); BLOOD UREA NITROGEN 16 MG/DL (7-18); BUN/CREATININE RATIO 13.3 (6.6-38.0); CALCIUM 8.3 MG/DL (8.5-10.1); CHLORIDE 102 MMOL/L (99-107); GLUCOSE 127 MG/DL (70-104); POTASSIUM 4.1 MMOL/L (3.5-5.1); SODIUM 138 MMOL/L (135-145); TOTAL CARBON DIOXIDE 27.3 MMOL/L (24-32); TOTAL PROTEIN 8.2 G/DL (6.4-8.2); eGFR 47 ML/MIN
[2022-09-19] MEDS ORDERED: acetaminophen 325mg tablet PO ONE (22:45)
[2022-09-19] MEDS ORDERED: ceFAZolin 1GM/D5W- ADD-VANTAGE 50 ML IV ONE (22:45)
[2022-09-19] MEDS ORDERED: olanzapine 10mg tablet PO ONE (22:50)
[2022-09-19] MEDS ORDERED: ondansetron/PF 4mg/2ml inj IV ONE (22:50)
[2022-09-19 23:05] LABS: ETHANOL < 0.010 GM/DL (0.0-0.010)
[2022-09-20] MEDS ORDERED: magnesium hydroxide 30ml (MOM) UD suspension PO PRN (01:25)
[2022-09-20] MEDS ORDERED: mag hydrox/Alum hydrox/simeth 30ml oral suspension PO PRN (01:25)
[2022-09-20] MEDS ORDERED: acetaminophen 325mg tablet PO PRN ×2 (01:25)
[2022-09-20] MEDS ORDERED: magnesium Cl slow-release 64mg tablet PO PRN (01:25)
[2022-09-20] MEDS ORDERED: haloperidol 5mg tablet PO PRN (01:25)
[2022-09-20] MEDS ORDERED: magnesium 2GM in 50ml NS 50 ML IV PRN (01:25)
[2022-09-20] MEDS ORDERED: bisacodyl 10mg suppository rectal RC PRN (01:25)
[2022-09-20] MEDS ORDERED: diphenhydrAMINE 25mg capsule PO PRN (01:25)
[2022-09-20] MEDS ORDERED: potassium Cl 40MEQ/1/2NS 520ml 520 ML IV PRN (01:25)
[2022-09-20] MEDS ORDERED: haloperidol lactate 5mg/ml inj IM PRN (01:25)
[2022-09-20] MEDS ORDERED: diphenhydrAMINE 50 mg/ml inj IV PRN (01:25)
[2022-09-20] MEDS ORDERED: potassium Cl 20 mEq SR tablet PO PRN ×2 (01:25)
[2022-09-20] MEDS ORDERED: acetaminophen 650mg rectal suppository RC PRN (01:25)
[2022-09-20] MEDS ORDERED: ondansetron 4mg rapidly disintigrating tab PO PRN (01:25)
[2022-09-20] MEDS ORDERED: ondansetron/PF 4mg/2ml inj IV PRN (01:25)
[2022-09-20] MEDS ORDERED: LORazepam 2 mg/ml vial IV PRN (01:25)
[2022-09-20] MEDS ORDERED: dextrose 50%-water 50ml dispensing syringe IV PRN ×3 (01:25→01:40)
[2022-09-20] MEDS ORDERED: magnesium 4gm in 100ml NS 100 ML IV PRN (01:25)
[2022-09-20] MEDS ORDERED: morphine 2 MG/ML inj. syringe IV PRN (01:25)
[2022-09-20] MEDS ORDERED: glucagon, human recombinant 1mg kit SUBCUT PRN (01:40)
[2022-09-20] MEDS ORDERED: DEXTROSE 15 GM of carb/4 tabs (each vial/BOTTLE has 4 tablets) PO PRN ×2 (01:40)
[2022-09-20] MEDS ORDERED: MESSAGE TO PHARMACY PO ONE (01:40)
[2022-09-20 01:54] LABS: APTT 32 SECONDS (22-32)
[2022-09-20 02:08] LABS: MAGNESIUM 1.3 MG/DL (1.5-2.4); PHOSPHORUS 2.2 MG/DL (2.3-4.5); POTASSIUM 3.4 MMOL/L (3.5-5.1)
[2022-09-20] MEDS: pantoprazole 40mg Tablet.DR PO SCH (08:00)
[2022-09-20] MEDS ORDERED: furosemide 20 MG/2 ML vial IV SCH (08:00)
[2022-09-20] MEDS ORDERED: ceFAZolin/D5W- 1GM premix 50 ML IV SCH (08:00)
[2022-09-20] MEDS: thiamine 100mg/ml 2ml inj. IV SCH ×3 (08:02→20:59)
--- NOTE | 2022-09-20 08:03 | NUR ---
Medication scanner in room 11 is not working.
[2022-09-20 08:24] LABS: BASOPHILS # (AUTO) 0.1 X10'3 (0-0.2); BASOPHILS % (AUTO) 0.4 % (0-1); EOSINOPHILS % (AUTO) 0 % (0-6); HEMOGLOBIN 11.5 g/dl (12.0-16.0); LYMPHOCYTES # (AUTO) 0.3 X10'3 (1.1-4.8); MEAN CORPUSCULAR HEMOGLOBIN 28.9 PG (27.0-31.0); MEAN CORPUSCULAR HGB CONC 31.8 g/dL (33.0-36.5); MEAN PLATELET VOLUME 7.1 FL (7.4-10.4); MONOCYTES % (AUTO) 3.2 % (2-12); NEUTROPHILS # (AUTO) 29.9 X10'3 (1.8-7.7); NEUTROPHILS % (AUTO) 95.4 % (42-75); PLATELET COUNT 259 X10'3 (140-440); RED BLOOD COUNT 3.96 X10'6 (4.20-5.60); RED CELL DISTRIBUTION WIDTH 15.7 % (11.5-14.5)
[2022-09-20 08:31] LABS: WHITE BLOOD COUNT 31.3 X10'3 (4.5-11.0)
[2022-09-20 08:33] LABS: ALANINE AMINOTRANSFERASE 14 U/L (12-78); ALBUMIN 2.7 G/DL (3.4-5.0); ALBUMIN/GLOBULIN RATIO 0.6 (1.1-1.5); ALKALINE PHOSPHATASE 63 IU/L (46-116); ANION GAP 6 (8-16); ASPARTATE AMINO TRANSFERASE 24 U/L (10-37); BILIRUBIN,TOTAL 1.1 MG/DL (0.1-1.0); BLOOD UREA NITROGEN 20 MG/DL (7-18); BUN/CREATININE RATIO 14.3 (6.6-38.0); CHLORIDE 103 MMOL/L (99-107); GLUCOSE 164 MG/DL (70-104); POTASSIUM 3.5 MMOL/L (3.5-5.1); SODIUM 135 MMOL/L (135-145); TOTAL CARBON DIOXIDE 26.5 MMOL/L (24-32); TOTAL PROTEIN 7.2 G/DL (6.4-8.2); eGFR 39 ML/MIN
--- NOTE | 2022-09-20 08:41 | NUR ---
B LE red and swollen. L soares has multiple small open areas.
[2022-09-20] MEDS: K and/or MAG REPLACEMENT MC SCH ×2 (08:54→20:00)
[2022-09-20 08:55] LABS: TOTAL CELLS COUNTED 100
[2022-09-20 08:56] LABS: PLATELET ESTIMATE NORMAL
--- NOTE | 2022-09-20 09:15 | NUR ---
B LE cleaned and dried.
[2022-09-20] MEDS: furosemide 20 MG/2 ML vial IV SCH ×2 (09:32→19:44)
[2022-09-20] MEDS: folic acid 1mg/0.2ml inj IV SCH (09:32)
[2022-09-20] MEDS: docusate sod 100mg capsule PO SCH ×2 (09:33→19:44)
[2022-09-20] MEDS: piperacillin/tazo 3.375gm/50ml 50 ML IV SCH ×2 (09:48→21:00)
--- NOTE | 2022-09-20 10:17 | NUR ---
RISHI FROM LAB CALLED 1 BOTTLE ON THE 14TH RIGHT HAND-11TH HR GREW OUT GRAM POSITIVE COCCI IN CHAINS. INFORMED MCKAYLA RM AND DR. HANSON.
[2022-09-20] MEDS: vancomycin/NS 1 GM ADD-VANTAGE 250 ML IV SCH (11:30)
--- NOTE | 2022-09-20 13:21 | NUR ---
Pt moved to a regular hospital bed.
--- NOTE | 2022-09-20 13:32 | NUR ---
Report given to MCKAYLA Reilly on the Surgical floor.
--- NOTE | 2022-09-20 13:37 | NUR ---
Received order for consult. I will follow up with patient when she gets to the floor.
[2022-09-20 14:08] LABS: CLARITY,URINE SLIGHTLY CLOUDY (Clear); GLUCOSE, URINE NEGATIVE (Neg); KETONES,URINE NEGATIVE (Neg); LEUKOCYTE ESTERASE ,URINE NEGATIVE (Neg); NITRITES, URINE NEGATIVE (Neg); OCCULT BLOOD,URINE NEGATIVE (Neg); PROTEIN,URINE NEGATIVE (Neg); UROBILINOGEN,URINE 0.2 E.U/dL (0.2-1.0)
[2022-09-20 14:13] LABS: UA COLLECTION TYPE OTHER
[2022-09-20 14:14] LABS: COLOR,URINE DARK YELLOW (Yellow)
[2022-09-20 14:22] LABS: RBC,URINE 0-2 /HPF (0-2); WBC,URINE 0-4 /HPF (0-4)
[2022-09-20 14:23] LABS: BACTERIA,URINE 2+ /HPF (Neg); MUCUS STRANDS FEW /LPF (Neg); SQUAMOUS EPITHELIAL CELL,UR MANY /LPF (FEW)
[2022-09-20 14:39] VITALS: BP 109/64
[2022-09-20] MEDS ORDERED: PERFLUTREN PROTEIN-A MICROSPHR (Optison) 0.22 MG/ML 3ML VIAL IV ONE (15:30)
--- NOTE | 2022-09-20 15:42 | NUR ---
Pt has stable scabs to bilateral LE which are w/o drainage. She has no other opne areas to her skin and declined to have full assessment done. Spoke with Melba the primary nurse and report provided that nursing will follow stable scabs. Pt should keep them clean and dry. Addendum: 09/20/22 at 1546 by Myesha Mason RN Amended: Links added.
[2022-09-20] MEDS ORDERED: albuterol 2.5 MG/3 ML nebule NEB PRN (16:35)
[2022-09-20 18:00] VITALS: BP 118/67
--- NOTE | 2022-09-20 18:34 | NUR ---
Patient in room HARRY 359. I have received report from BRIANDA BLOCK and had the opportunity to ask questions and assume patient care.
--- NOTE | 2022-09-20 18:39 | NUR ---
Problems reprioritized. Patient report given, questions answered & plan of care reviewed with Prudence RN.
[2022-09-20] MEDS: HYDROcodone/acetaminophen 5mg/325mg tablet PO PRN (19:39)
[2022-09-20] MEDS: apixaban 5mg tablet PO SCH (19:44)
[2022-09-20] MEDS: carvedilol 6.25mg tablet PO SCH (20:00)
[2022-09-20] MEDS: Neutra Phos packet PO SCH (21:00)
[2022-09-20] MEDS ORDERED: temazepam 15mg capsule PO PRN (21:00)
[2022-09-20] MEDS: budesonide 0.5mg/2ml UD nebule IH SCH (21:00)
[2022-09-20] MEDS: insulin glargine (Lantus) pen - multi-dose SQ SCH (21:00)
[2022-09-20 22:00] VITALS: BP 111/58
[2022-09-21] MEDS: piperacillin/tazo 3.375gm/50ml 50 ML IV SCH ×3 (04:25→19:00)
[2022-09-21 05:29] VITALS: BP 137/90
--- NOTE | 2022-09-21 06:40 | NUR ---
Problems reprioritized. Patient report given, questions answered & plan of care reviewed with ANNA BLOCK.
--- NOTE | 2022-09-21 07:00 | NUR ---
Patient in room PCU 3013. I have received report from Yasmeen BLOCK and had the opportunity to ask questions and assume patient care.
[2022-09-21 07:05] LABS: BASOPHILS # (AUTO) 0.1 X10'3 (0-0.2); BASOPHILS % (AUTO) 0.4 % (0-1); EOSINOPHILS % (AUTO) 0 % (0-6); HEMATOCRIT 34.7 % (35.0-45.0); HEMOGLOBIN 11.6 g/dl (12.0-16.0); LYMPHOCYTES # (AUTO) 0.4 X10'3 (1.1-4.8); LYMPHOCYTES % (AUTO) 1.5 % (21-51); MEAN CORPUSCULAR HEMOGLOBIN 30.3 PG (27.0-31.0); MEAN CORPUSCULAR HGB CONC 33.5 g/dL (33.0-36.5); MEAN CORPUSCULAR VOLUME 90.4 FL (78-98); MEAN PLATELET VOLUME 7.3 FL (7.4-10.4); MONOCYTES # (AUTO) 0.8 X10'3 (0-0.9); MONOCYTES % (AUTO) 3.3 % (2-12); NEUTROPHILS # (AUTO) 22.5 X10'3 (1.8-7.7); NEUTROPHILS % (AUTO) 94.8 % (42-75); PLATELET COUNT 268 X10'3 (140-440); RED BLOOD COUNT 3.84 X10'6 (4.20-5.60); RED CELL DISTRIBUTION WIDTH 15.7 % (11.5-14.5); WHITE BLOOD COUNT 23.7 X10'3 (4.5-11.0)
[2022-09-21 07:15] LABS: ALANINE AMINOTRANSFERASE 13 U/L (12-78); ALBUMIN 2.8 G/DL (3.4-5.0); ALBUMIN/GLOBULIN RATIO 0.6 (1.1-1.5); ALKALINE PHOSPHATASE 73 IU/L (46-116); ANION GAP 7 (8-16); ASPARTATE AMINO TRANSFERASE 23 U/L (10-37); BILIRUBIN,TOTAL 0.6 MG/DL (0.1-1.0); BLOOD UREA NITROGEN 32 MG/DL (7-18); BUN/CREATININE RATIO 20.4 (6.6-38.0); CALCIUM 8.2 MG/DL (8.5-10.1); CHLORIDE 100 MMOL/L (99-107); CREATININE 1.57 MG/DL (0.40-0.90); GLUCOSE 126 MG/DL (70-104); PHOSPHORUS 3.6 MG/DL (2.3-4.5); POTASSIUM 3.9 MMOL/L (3.5-5.1); SODIUM 133 MMOL/L (135-145); TOTAL CARBON DIOXIDE 25.7 MMOL/L (24-32); TOTAL PROTEIN 7.8 G/DL (6.4-8.2); eGFR 34 ML/MIN
[2022-09-21] MEDS: apixaban 5mg tablet PO SCH ×2 (07:58→20:44)
[2022-09-21] MEDS: atorvastatin 10mg tablet PO SCH (07:58)
[2022-09-21] MEDS: aspirin 81mg, enteric-coated 1 TAB TABLET.DR PO SCH (07:58)
[2022-09-21] MEDS: docusate sod 100mg capsule PO SCH ×2 (07:59→20:44)
[2022-09-21] MEDS: thiamine 100mg/ml 2ml inj. IV SCH ×3 (07:59→21:00)
[2022-09-21] MEDS: furosemide 20 MG/2 ML vial IV SCH ×2 (07:59→20:44)
[2022-09-21] MEDS: pantoprazole 40mg Tablet.DR PO SCH (07:59)
[2022-09-21] MEDS: K and/or MAG REPLACEMENT MC SCH ×2 (08:00→20:00)
[2022-09-21] MEDS: carvedilol 6.25mg tablet PO SCH ×3 (08:00→20:44)
[2022-09-21] MEDS: folic acid 1mg/0.2ml inj IV SCH (08:00)
[2022-09-21] MEDS ORDERED: folic acid 0.4mg tablet PO SCH (08:00)
[2022-09-21] MEDS: potassium Cl 20 mEq SR tablet PO SCH (08:00)
[2022-09-21] MEDS: spironolactone 25 MG tablet PO SCH ×2 (08:00→09:33)
[2022-09-21] MEDS: thiamine 100mg tablet PO SCH ×2 (08:00→09:32)
--- NOTE | 2022-09-21 09:13 | NUR ---
Malnutrition consult: Per scaled wt hx in EMR, pt was 100kg in January of this year and was 93kg earlier in September. This would represent a non significant wt loss of 7% in 8 months. Pt appears WD/WN per MD note. Currently on Carb control diet w/ 100% intake of first 2 meals. Noted w/ BLE 1+ edema though more likely related to CHF. Pt does not meet minimum criteria for malnutrition at this time. Recommend Liberalizing to Regular diet given A1c 6.1 Addendum: 09/21/22 at [address] Amended: Links added.
[2022-09-21] MEDS: Neutra Phos packet PO SCH ×3 (09:33→21:00)
[2022-09-21] MEDS: vancomycin/NS 1 GM ADD-VANTAGE 250 ML IV SCH (09:33)
[2022-09-21 10:00] VITALS: BP 115/78
[2022-09-21] MEDS ORDERED: diltiazem 5mg/ml 5ml inj. IV ONE (10:05)
[2022-09-21 10:20] LABS: ABG BASE EXCESS -2.2 mmol/L (-2.0-2.0); ABG HCO3 23.6 mmol/L (22.0-26.0); ABG OXYGEN SATURATION 94.6 % (94-97); ABG PCO2 (T) 48.3 mmHg (32.0-45.0); ABG PO2 (T) 82.9 mmHg (75.0-100.0); ALLEN'S TEST Modified; FCOHb 0.5 % (0.0-3.9); FLOW 2 L/min; FMetHb 0.3 % (0.0-1.5); FO2Hb 93.8 % (94-97); PATIENT TEMPERATURE 39.1; TOTAL HEMOGLOBIN 12.8 G/dl (12.0-16.0)
[2022-09-21] MEDS: budesonide 0.5mg/2ml UD nebule IH SCH ×2 (10:28→20:57)
--- NOTE | 2022-09-21 10:30 | NUR ---
Called report to Pat BLOCK
[2022-09-21] MEDS ORDERED: acetaminophen 325mg tablet PO PRN (10:35)
[2022-09-21] MEDS: diltiazem-NS 100mg/100ml 100 ML IV SCH (11:42)
--- NOTE | 2022-09-21 11:54 | NUR ---
refused am labs
[2022-09-21 16:40] VITALS: BP 129/97
[2022-09-21 18:00] VITALS: BP 137/88
--- NOTE | 2022-09-21 19:12 | NUR ---
Problems reprioritized. Patient report given, questions answered & plan of care reviewed with Venancio BLOCK, patient stable at transfer of care.
[2022-09-21] MEDS: insulin glargine (Lantus) pen - multi-dose SQ SCH (21:00)
[2022-09-21 22:00] VITALS: BP 130/94
[2022-09-22] MEDS ORDERED: LORazepam 1 MG tablet PO PRN (01:25)
[2022-09-22] MEDS ORDERED: LORazepam 2 mg/ml vial IV PRN (01:25)
[2022-09-22 02:00] VITALS: BP 118/88
[2022-09-22] MEDS: piperacillin/tazo 3.375gm/50ml 50 ML IV SCH ×2 (03:00→12:35)
[2022-09-22] MEDS: diltiazem-NS 100mg/100ml 100 ML IV SCH (05:26)
[2022-09-22 07:00] VITALS: BP 118/87
[2022-09-22 07:24] LABS: BASOPHILS # (AUTO) 0.1 X10'3 (0-0.2); BASOPHILS % (AUTO) 0.5 % (0-1); EOSINOPHILS # (AUTO) 0.1 X10'3 (0-0.9); EOSINOPHILS % (AUTO) 0.7 % (0-6); HEMATOCRIT 33.6 % (35.0-45.0); HEMOGLOBIN 11.2 g/dl (12.0-16.0); LYMPHOCYTES # (AUTO) 0.8 X10'3 (1.1-4.8); LYMPHOCYTES % (AUTO) 6.2 % (21-51); MEAN CORPUSCULAR HEMOGLOBIN 29.9 PG (27.0-31.0); MEAN CORPUSCULAR HGB CONC 33.3 g/dL (33.0-36.5); MEAN CORPUSCULAR VOLUME 89.6 FL (78-98); MEAN PLATELET VOLUME 7.4 FL (7.4-10.4); MONOCYTES # (AUTO) 1.1 X10'3 (0-0.9); MONOCYTES % (AUTO) 8.4 % (2-12); NEUTROPHILS # (AUTO) 10.7 X10'3 (1.8-7.7); NEUTROPHILS % (AUTO) 84.2 % (42-75); PLATELET COUNT 259 X10'3 (140-440); RED BLOOD COUNT 3.75 X10'6 (4.20-5.60); RED CELL DISTRIBUTION WIDTH 15.7 % (11.5-14.5); WHITE BLOOD COUNT 12.7 X10'3 (4.5-11.0)
[2022-09-22] MEDS: budesonide 0.5mg/2ml UD nebule IH SCH ×2 (07:40→19:11)
[2022-09-22 07:43] LABS: ALANINE AMINOTRANSFERASE 11 U/L (12-78); ALBUMIN 2.5 G/DL (3.4-5.0); ALBUMIN/GLOBULIN RATIO 0.5 (1.1-1.5); ALKALINE PHOSPHATASE 76 IU/L (46-116); ANION GAP 6 (8-16); ASPARTATE AMINO TRANSFERASE 34 U/L (10-37); BILIRUBIN,TOTAL 0.5 MG/DL (0.1-1.0); BLOOD UREA NITROGEN 26 MG/DL (7-18); BUN/CREATININE RATIO 23.9 (6.6-38.0); CALCIUM 7.8 MG/DL (8.5-10.1); CHLORIDE 101 MMOL/L (99-107); CREATININE 1.09 MG/DL (0.40-0.90); GLUCOSE 112 MG/DL (70-104); PHOSPHORUS 3.3 MG/DL (2.3-4.5); POTASSIUM 3.7 MMOL/L (3.5-5.1); SODIUM 135 MMOL/L (135-145); TOTAL CARBON DIOXIDE 28.4 MMOL/L (24-32); TOTAL PROTEIN 7.1 G/DL (6.4-8.2); eGFR 52 ML/MIN
[2022-09-22] MEDS: folic acid 1mg/0.2ml inj IV SCH (08:00)
[2022-09-22] MEDS: K and/or MAG REPLACEMENT MC SCH ×2 (08:00→19:26)
[2022-09-22] MEDS: aspirin 81mg, enteric-coated 1 TAB TABLET.DR PO SCH (08:00)
[2022-09-22] MEDS: atorvastatin 10mg tablet PO SCH (09:21)
[2022-09-22] MEDS: potassium Cl 20 mEq SR tablet PO SCH (09:22)
[2022-09-22] MEDS: pantoprazole 40mg Tablet.DR PO SCH (09:22)
[2022-09-22] MEDS: docusate sod 100mg capsule PO SCH ×2 (09:22→21:12)
[2022-09-22] MEDS: Neutra Phos packet PO SCH ×3 (09:22→21:11)
[2022-09-22] MEDS: carvedilol 6.25mg tablet PO SCH ×2 (09:23→21:12)
[2022-09-22] MEDS: furosemide 20 MG/2 ML vial IV SCH ×2 (09:23→21:13)
[2022-09-22] MEDS: spironolactone 25 MG tablet PO SCH (09:23)
[2022-09-22] MEDS: thiamine 100mg/ml 2ml inj. IV SCH ×3 (09:23→21:10)
[2022-09-22] MEDS: apixaban 5mg tablet PO SCH ×2 (09:24→21:11)
[2022-09-22 11:00] VITALS: BP 115/81
[2022-09-22] MEDS: insulin Lispro (HumaLOG) vial - multi-dose SQ SCH (11:19)
[2022-09-22 18:00] VITALS: BP 150/105
[2022-09-22] MEDS: ipratropium/albuterol 3ml nebule NEB PRN (19:11)
[2022-09-22] MEDS: insulin glargine (Lantus) pen - multi-dose SQ SCH (21:00)
[2022-09-22] MEDS: HYDROcodone/acetaminophen 5mg/325mg tablet PO PRN (21:11)
[2022-09-22] MEDS: ampicillin inj 2 GM in normal saline 100ml IV soln 100 ML IV SCH (21:13)
--- NOTE | 2022-09-22 21:58 | NUR ---
Pt does not meet protocol and does not need lantus.
[2022-09-22 22:00] VITALS: BP 140/96
[2022-09-23 02:00] VITALS: BP 97/70
[2022-09-23] MEDS: ampicillin inj 2 GM in normal saline 100ml IV soln 100 ML IV SCH ×4 (02:15→20:18)
[2022-09-23] MEDS: HYDROcodone/acetaminophen 5mg/325mg tablet PO PRN ×2 (04:58→20:17)
[2022-09-23 06:30] VITALS: BP 109/77
--- NOTE | 2022-09-23 06:30 | NUR ---
Patient in room PCU 3013B. I have received report from Jaime BLOCK and had the opportunity to ask questions and assume patient care. Pt is laying supinf in bed, and is resting comfortably. Pt on 2L NC. No s/s of distress. No s/s of pain at this time. Tab alarm on, alarm audiable. BLL, call light wihtin reach, frequently used items in reach, frequent rounding. Will continue to monitor.
[2022-09-23 06:43] LABS: BASOPHILS % (AUTO) 0.3 % (0-1); EOSINOPHILS % (AUTO) 0.4 % (0-6); HEMATOCRIT 35.8 % (35.0-45.0); HEMOGLOBIN 11.7 g/dl (12.0-16.0); LYMPHOCYTES # (AUTO) 0.8 X10'3 (1.1-4.8); LYMPHOCYTES % (AUTO) 5.4 % (21-51); MEAN CORPUSCULAR HEMOGLOBIN 29.3 PG (27.0-31.0); MEAN CORPUSCULAR HGB CONC 32.7 g/dL (33.0-36.5); MEAN CORPUSCULAR VOLUME 89.8 FL (78-98); MEAN PLATELET VOLUME 7.1 FL (7.4-10.4); MONOCYTES # (AUTO) 1.1 X10'3 (0-0.9); MONOCYTES % (AUTO) 7.8 % (2-12); NEUTROPHILS % (AUTO) 86.1 % (42-75); PLATELET COUNT 261 X10'3 (140-440); RED BLOOD COUNT 3.99 X10'6 (4.20-5.60); RED CELL DISTRIBUTION WIDTH 15.9 % (11.5-14.5); WHITE BLOOD COUNT 13.9 X10'3 (4.5-11.0)
[2022-09-23 07:22] LABS: ALANINE AMINOTRANSFERASE 18 U/L (12-78); ALBUMIN 2.5 G/DL (3.4-5.0); ALBUMIN/GLOBULIN RATIO 0.5 (1.1-1.5); ALKALINE PHOSPHATASE 79 IU/L (46-116); ANION GAP 6 (8-16); ASPARTATE AMINO TRANSFERASE 40 U/L (10-37); BILIRUBIN,TOTAL 0.6 MG/DL (0.1-1.0); BLOOD UREA NITROGEN 18 MG/DL (7-18); BUN/CREATININE RATIO 18.6 (6.6-38.0); CALCIUM 8.1 MG/DL (8.5-10.1); CHLORIDE 101 MMOL/L (99-107); CREATININE 0.97 MG/DL (0.40-0.90); GLUCOSE 132 MG/DL (70-104); PHOSPHORUS 3.2 MG/DL (2.3-4.5); SODIUM 135 MMOL/L (135-145); TOTAL CARBON DIOXIDE 28.3 MMOL/L (24-32); TOTAL PROTEIN 7.2 G/DL (6.4-8.2); eGFR 60 ML/MIN
[2022-09-23] MEDS: K and/or MAG REPLACEMENT MC SCH ×2 (08:00→20:00)
[2022-09-23] MEDS ORDERED: VANCOMYCIN LEVEL IV ONE (08:30)
[2022-09-23] MEDS: aspirin 81mg, enteric-coated 1 TAB TABLET.DR PO SCH (08:54)
[2022-09-23] MEDS: potassium Cl 20 mEq SR tablet PO SCH (08:55)
[2022-09-23] MEDS: atorvastatin 10mg tablet PO SCH (08:55)
[2022-09-23] MEDS: apixaban 5mg tablet PO SCH ×2 (08:55→20:18)
[2022-09-23] MEDS: spironolactone 25 MG tablet PO SCH (08:55)
[2022-09-23] MEDS: carvedilol 6.25mg tablet PO SCH (08:55)
[2022-09-23] MEDS: thiamine 100mg tablet PO SCH (08:55)
[2022-09-23] MEDS: Neutra Phos packet PO SCH ×3 (08:55→20:18)
[2022-09-23] MEDS: docusate sod 100mg capsule PO SCH ×2 (08:56→20:17)
[2022-09-23] MEDS: pantoprazole 40mg Tablet.DR PO SCH (09:05)
[2022-09-23] MEDS: furosemide 20 MG/2 ML vial IV SCH ×2 (09:06→20:16)
[2022-09-23] MEDS: budesonide 0.5mg/2ml UD nebule IH SCH ×2 (09:14→20:02)
[2022-09-23 09:56] VITALS: BP 122/80
--- NOTE | 2022-09-23 09:56 | NUR ---
Pt upset with nursing staff about tab alarm being clipped to her gown. Pt became upset and rude to nurse, stating "dont touch me. get out of here." Pt preparing to receive thora in room at this time. Will continue to monitor.
[2022-09-23] MEDS ORDERED: albumin (human) 25% 100 ML IV solution IV ONE (10:15)
[2022-09-23 10:25] VITALS: BP 104/78
[2022-09-23 11:00] VITALS: BP 109/75
[2022-09-23] MEDS: insulin Lispro (HumaLOG) vial - multi-dose SQ SCH (13:58)
[2022-09-23 15:00] VITALS: BP 112/70
--- NOTE | 2022-09-23 18:30 | NUR ---
Problems reprioritized. Patient report given, questions answered & plan of care reviewed with Syeda BLOCK.
[2022-09-23] MEDS: ipratropium/albuterol 3ml nebule NEB PRN (20:02)
[2022-09-23] MEDS: carVEDilol 12.5mg tablet PO SCH (20:17)
[2022-09-23] MEDS: insulin glargine (Lantus) pen - multi-dose SQ SCH (21:00)
[2022-09-24] MEDS ORDERED: LORazepam 2 mg/ml vial IV PRN (01:25)
[2022-09-24] MEDS ORDERED: LORazepam 1 MG tablet PO PRN (01:25)
[2022-09-24] MEDS: ampicillin inj 2 GM in normal saline 100ml IV soln 100 ML IV SCH ×3 (02:31→14:00)
--- NOTE | 2022-09-24 06:41 | NUR ---
Patient in room PCU 3013. I have received report from Caroline BLOCK and had the opportunity to ask questions and assume patient care.
[2022-09-24 06:56] VITALS: BP 123/72
[2022-09-24 07:34] LABS: ALANINE AMINOTRANSFERASE 26 U/L (12-78); ALBUMIN 2.2 G/DL (3.4-5.0); ALBUMIN/GLOBULIN RATIO 0.5 (1.1-1.5); ALKALINE PHOSPHATASE 101 IU/L (46-116); ANION GAP 5 (8-16); ASPARTATE AMINO TRANSFERASE 55 U/L (10-37); BILIRUBIN,TOTAL 0.9 MG/DL (0.1-1.0); BLOOD UREA NITROGEN 14 MG/DL (7-18); BUN/CREATININE RATIO 16.5 (6.6-38.0); CALCIUM 7.8 MG/DL (8.5-10.1); CHLORIDE 98 MMOL/L (99-107); CREATININE 0.85 MG/DL (0.40-0.90); GLUCOSE 105 MG/DL (70-104); PHOSPHORUS 3.2 MG/DL (2.3-4.5); POTASSIUM 3.6 MMOL/L (3.5-5.1); SODIUM 133 MMOL/L (135-145); TOTAL CARBON DIOXIDE 30.5 MMOL/L (24-32); TOTAL PROTEIN 6.3 G/DL (6.4-8.2); eGFR 69 ML/MIN
[2022-09-24 07:48] LABS: BASOPHILS # (AUTO) 0.1 X10'3 (0-0.2); BASOPHILS % (AUTO) 0.4 % (0-1); EOSINOPHILS # (AUTO) 0.1 X10'3 (0-0.9); EOSINOPHILS % (AUTO) 0.6 % (0-6); HEMATOCRIT 34.1 % (35.0-45.0); HEMOGLOBIN 11.2 g/dl (12.0-16.0); LYMPHOCYTES # (AUTO) 0.9 X10'3 (1.1-4.8); LYMPHOCYTES % (AUTO) 6.3 % (21-51); MEAN CORPUSCULAR HEMOGLOBIN 29.1 PG (27.0-31.0); MEAN CORPUSCULAR HGB CONC 32.9 g/dL (33.0-36.5); MEAN CORPUSCULAR VOLUME 88.4 FL (78-98); MEAN PLATELET VOLUME 7.9 FL (7.4-10.4); MONOCYTES # (AUTO) 1.4 X10'3 (0-0.9); MONOCYTES % (AUTO) 9.4 % (2-12); NEUTROPHILS # (AUTO) 12.3 X10'3 (1.8-7.7); NEUTROPHILS % (AUTO) 83.3 % (42-75); PLATELET COUNT 230 X10'3 (140-440); RED BLOOD COUNT 3.86 X10'6 (4.20-5.60); RED CELL DISTRIBUTION WIDTH 15.7 % (11.5-14.5); WHITE BLOOD COUNT 14.8 X10'3 (4.5-11.0)
[2022-09-24] MEDS: K and/or MAG REPLACEMENT MC SCH (08:00)
[2022-09-24] MEDS ORDERED: folic acid 1mg tablet PO SCH (08:00)
[2022-09-24] MEDS ORDERED: thiamine 100mg tablet PO SCH (08:00)
[2022-09-24] MEDS: budesonide 0.5mg/2ml UD nebule IH SCH (08:07)
[2022-09-24] MEDS: Neutra Phos packet PO SCH ×2 (10:01→13:00)
[2022-09-24] MEDS: HYDROcodone/acetaminophen 5mg/325mg tablet PO PRN (10:02)
[2022-09-24] MEDS: apixaban 5mg tablet PO SCH (10:03)
[2022-09-24] MEDS: thiamine 100mg tablet PO SCH (10:03)
[2022-09-24 10:04] VITALS: BP_SYST 123
[2022-09-24] MEDS: aspirin 81mg, enteric-coated 1 TAB TABLET.DR PO SCH (10:04)
[2022-09-24] MEDS: spironolactone 25 MG tablet PO SCH (10:04)
[2022-09-24] MEDS: pantoprazole 40mg Tablet.DR PO SCH (10:04)
[2022-09-24] MEDS: docusate sod 100mg capsule PO SCH (10:05)
[2022-09-24] MEDS: potassium Cl 20 mEq SR tablet PO SCH (10:05)
[2022-09-24] MEDS: atorvastatin 10mg tablet PO SCH (10:06)
[2022-09-24] MEDS: carVEDilol 12.5mg tablet PO SCH (10:07)
[2022-09-24] MEDS: furosemide 20 MG/2 ML vial IV SCH ×2 (10:09→13:00)
[2022-09-24] MEDS ORDERED: POTA-82 PO (11:00)
[2022-09-24] MEDS ORDERED: ATOR10TA PO (11:00)
[2022-09-24] MEDS ORDERED: LEVA15HF4 INH (11:00)
[2022-09-24] MEDS ORDERED: NALT50TA PO (11:00)
[2022-09-24] MEDS ORDERED: FURO-150 PO (11:00)
[2022-09-24] MEDS ORDERED: BUPR100T5 PO (11:00)
[2022-09-24] MEDS ORDERED: APIX5TAB3 PO (11:00)
[2022-09-24] MEDS ORDERED: SPIR25TA5 PO (11:00)
[2022-09-24] MEDS ORDERED: ASPI81TA52 PO (11:00)
[2022-09-24] MEDS ORDERED: CARV25TA2 PO (11:00)
[2022-09-24] MEDS ORDERED: BECL10.6 INH (11:00)
[2022-09-24] MEDS ORDERED: AMOX500C2 PO (11:04)
--- NOTE | 2022-09-24 12:59 | NUR ---
patient refused discharge pictures at this time. Will attempt a second time before discharge.
--- NOTE | 2022-09-24 14:14 | NUR ---
Patient left with all belongings and medications at time of discharge. Patient Iv taken out at discharge as well and canula was whole and intact upon inspection. patient expressed verbal understanding of new medications and dosing. patient stated she already has a appointment with the [facility] for 09/25/22. Patient left in wheelchair and walked to bus stop for transportation.
== END 2022-09-24 14:14 | disposition home or self-care (01) | DRG 720 ==
LOC: ER 21:12 → ED HOLD 09-20 01:36 → SUR 3N 09-20 14:27 → PCU 3S 09-21 11:02
PROVIDERS: ADMIT Family Medicine; ATTEND Family Medicine
PROC: 5A09357 Assistance with Respiratory Ventilation, Less than 24 Consecutive Hours, Continuous Positive Airway Pressure (ICD-10-PCS; 2022-09-21)
PROC: 0W9G3ZZ Drainage of Peritoneal Cavity, Percutaneous Approach (ICD-10-PCS; principal; 2022-09-23)
DX: A40.0 Sepsis due to streptococcus, group A (principal); N17.0 Acute kidney failure with tubular necrosis; G93.40 Encephalopathy, unspecified; I50.23 Acute on chronic systolic (congestive) heart failure; R18.8 Other ascites; I47.1 Supraventricular tachycardia; I27.20 Pulmonary hypertension, unspecified; I42.7 Cardiomyopathy due to drug and external agent; E83.39 Other disorders of phosphorus metabolism; E87.6 Hypokalemia; Z20.822 Contact with and (suspected) exposure to COVID-19; D64.9 Anemia, unspecified; E11.65 Type 2 diabetes mellitus with hyperglycemia; B19.20 Unspecified viral hepatitis C without hepatic coma; E78.5 Hyperlipidemia, unspecified; F10.10 Alcohol abuse, uncomplicated; F15.10 Other stimulant abuse, uncomplicated; F17.210 Nicotine dependence, cigarettes, uncomplicated; I48.92 Unspecified atrial flutter; E11.22 Type 2 diabetes mellitus with diabetic chronic kidney disease; N18.9 Chronic kidney disease, unspecified; G89.4 Chronic pain syndrome; M54.9 Dorsalgia, unspecified; I13.0 Hypertensive heart and chronic kidney disease with heart failure and stage 1 through stage 4 chronic kidney disease, or unspecified chronic kidney disease; J44.9 Chronic obstructive pulmonary disease, unspecified; E83.42 Hypomagnesemia; J98.11 Atelectasis; K21.9 Gastro-esophageal reflux disease without esophagitis; K70.9 Alcoholic liver disease, unspecified; L03.116 Cellulitis of left lower limb; L30.9 Dermatitis, unspecified; Z59.00 Homelessness unspecified; Z79.01 Long term (current) use of anticoagulants; Z91.199 Patient's noncompliance with other medical treatment and regimen due to unspecified reason; Z88.8 Allergy status to other drugs, medicaments and biological substances; Z79.899 Other long term (current) drug therapy
CPT/HCPCS: 36415; 36600; 49083; 71045; 80053; 80320; 81001; 82803; 82948; 83605; 83735; 83880; 84100; 84132; 84484; 85007; 85018; 85025; 85610; 85730; 87040; 87077; 87186; 87811; 93005; 93308; 94640; 94660; 94760; 96365; 96375; 97161; 97530; 99285; A4615; G0378; J0290; J0690; J1815; J1940; J2060; J2270; J2405; J2543; J2930; J3370; J3411; J3490; J7030; P9047

== ENCOUNTER 2022-10-17 19:14 | Emergency (ER) | payer MEDICAID ==
[~2022-10-17] VITALS: Ht 175.3 cm; Wt 117.2 kg
[~2022-10-17 19:14] MED LIST changes: +BUPR100T5 PO; +CARV25TA2 PO; -CARV6.253 PO; -FURO-149 PO; -LOSA25TA96 PO; -METF-436 PO; -NICO-731 TD
[2022-10-17 19:33] LABS: BASOPHILS # (AUTO) 0.1 X10'3 (0-0.2); BASOPHILS % (AUTO) 1.2 % (0-1); EOSINOPHILS # (AUTO) 0.2 X10'3 (0-0.9); HEMATOCRIT 32.8 % (35.0-45.0); HEMOGLOBIN 10.5 g/dl (12.0-16.0); LYMPHOCYTES # (AUTO) 0.6 X10'3 (1.1-4.8); LYMPHOCYTES % (AUTO) 7.4 % (21-51); MEAN CORPUSCULAR HEMOGLOBIN 28.9 PG (27.0-31.0); MEAN CORPUSCULAR HGB CONC 32.2 g/dL (33.0-36.5); MEAN CORPUSCULAR VOLUME 89.7 FL (78-98); MEAN PLATELET VOLUME 6.6 FL (7.4-10.4); MONOCYTES # (AUTO) 0.8 X10'3 (0-0.9); MONOCYTES % (AUTO) 10.8 % (2-12); NEUTROPHILS # (AUTO) 5.9 X10'3 (1.8-7.7); NEUTROPHILS % (AUTO) 77.6 % (42-75); PLATELET COUNT 346 X10'3 (140-440); RED BLOOD COUNT 3.65 X10'6 (4.20-5.60); RED CELL DISTRIBUTION WIDTH 16.4 % (11.5-14.5); WHITE BLOOD COUNT 7.7 X10'3 (4.5-11.0)
[2022-10-17 19:52] LABS: ALANINE AMINOTRANSFERASE 59 U/L (12-78); ALBUMIN 2.9 G/DL (3.4-5.0); ALBUMIN/GLOBULIN RATIO 0.5 (1.1-1.5); ALKALINE PHOSPHATASE 129 IU/L (46-116); ANION GAP 10 (8-16); ASPARTATE AMINO TRANSFERASE 69 U/L (10-37); BILIRUBIN,TOTAL 0.5 MG/DL (0.1-1.0); BLOOD UREA NITROGEN 32 MG/DL (7-18); BUN/CREATININE RATIO 20.9 (6.6-38.0); CALCIUM 8.5 MG/DL (8.5-10.1); CHLORIDE 103 MMOL/L (99-107); CREATININE 1.53 MG/DL (0.40-0.90); GLUCOSE 128 MG/DL (70-104); MAGNESIUM 2.2 MG/DL (1.5-2.4); POTASSIUM 4.5 MMOL/L (3.5-5.1); SODIUM 137 MMOL/L (135-145); TOTAL CARBON DIOXIDE 24.3 MMOL/L (24-32); TOTAL PROTEIN 8.3 G/DL (6.4-8.2); eGFR 35 ML/MIN
[2022-10-18] MEDS ORDERED: LIDOCAINE 1%/EPI 1:100,000 inj. 10 ML multi-dose vial IJ ONE (08:27)
--- NOTE | 2022-10-18 09:45 | NUR ---
5000 mL richard hazy liquid off via paracentesis. Pt tolerated well
[2022-10-18 10:37] VITALS: BP 155/94
== END 2022-10-18 10:40 | disposition home or self-care (01) ==
LOC: ER 19:15
DX: R18.8 Other ascites (principal); I11.9 Hypertensive heart disease without heart failure; J44.9 Chronic obstructive pulmonary disease, unspecified; K21.9 Gastro-esophageal reflux disease without esophagitis; G89.29 Other chronic pain; M54.9 Dorsalgia, unspecified; F15.10 Other stimulant abuse, uncomplicated; Z88.6 Allergy status to analgesic agent; Z79.899 Other long term (current) drug therapy
CPT/HCPCS: 36415; 49083; 71045; 80053; 83735; 83880; 84484; 85025; 93005; 99285; A6258

== ENCOUNTER 2022-10-21 18:28 | Inpatient (IN) | payer MEDICAID ==
[~2022-10-21] VITALS: Ht 175.3 cm; Wt 112.3 kg
[2022-10-21 18:50] LABS: BASOPHILS # (AUTO) 0.1 X10'3 (0-0.2); EOSINOPHILS # (AUTO) 0.3 X10'3 (0-0.9); EOSINOPHILS % (AUTO) 3.1 % (0-6); HEMATOCRIT 32.9 % (35.0-45.0); HEMOGLOBIN 10.9 g/dl (12.0-16.0); LYMPHOCYTES # (AUTO) 0.8 X10'3 (1.1-4.8); LYMPHOCYTES % (AUTO) 8.4 % (21-51); MEAN CORPUSCULAR VOLUME 90.9 FL (78-98); MEAN PLATELET VOLUME 6.6 FL (7.4-10.4); MONOCYTES # (AUTO) 1.1 X10'3 (0-0.9); MONOCYTES % (AUTO) 11.3 % (2-12); NEUTROPHILS # (AUTO) 7.4 X10'3 (1.8-7.7); NEUTROPHILS % (AUTO) 76.2 % (42-75); PLATELET COUNT 340 X10'3 (140-440); RED BLOOD COUNT 3.62 X10'6 (4.20-5.60); RED CELL DISTRIBUTION WIDTH 17.1 % (11.5-14.5); WHITE BLOOD COUNT 9.7 X10'3 (4.5-11.0)
--- NOTE | 2022-10-21 19:00 | NUR ---
Scallop Binder agrees with Rafa Cortes assessment.
[2022-10-21 19:13] LABS: ALANINE AMINOTRANSFERASE 81 U/L (12-78); ALBUMIN 2.4 G/DL (3.4-5.0); ALBUMIN/GLOBULIN RATIO 0.5 (1.1-1.5); ALKALINE PHOSPHATASE 135 IU/L (46-116); ANION GAP 6 (8-16); ASPARTATE AMINO TRANSFERASE 104 U/L (10-37); BILIRUBIN,TOTAL 0.5 MG/DL (0.1-1.0); BLOOD UREA NITROGEN 16 MG/DL (7-18); BUN/CREATININE RATIO 17.4 (6.6-38.0); CALCIUM 7.5 MG/DL (8.5-10.1); CHLORIDE 106 MMOL/L (99-107); CREATININE 0.92 MG/DL (0.40-0.90); GLUCOSE 136 MG/DL (70-104); MAGNESIUM 1.8 MG/DL (1.5-2.4); POTASSIUM 4.2 MMOL/L (3.5-5.1); SODIUM 138 MMOL/L (135-145); TOTAL CARBON DIOXIDE 25.6 MMOL/L (24-32); TOTAL PROTEIN 7.4 G/DL (6.4-8.2); eGFR 63 ML/MIN
[2022-10-21] MEDS: CefTRIAXone 2gm/D5W 50ml BAG 50 ML IV ONE ×2 (20:47→20:53)
[2022-10-21] MEDS ORDERED: furosemide 10 MG/1 ML 10ml inj IV ONE (20:50)
[2022-10-21] MEDS ORDERED: temazepam 15mg capsule PO PRN (21:00)
[2022-10-21] MEDS ORDERED: bisacodyl 10mg suppository rectal RC PRN (22:25)
[2022-10-21] MEDS ORDERED: haloperidol 5mg tablet PO PRN (22:25)
[2022-10-21] MEDS ORDERED: morphine 2 MG/ML inj. syringe IV PRN (22:25)
[2022-10-21] MEDS ORDERED: magnesium hydroxide 30ml (MOM) UD suspension PO PRN (22:25)
[2022-10-21] MEDS ORDERED: diphenhydrAMINE 25mg capsule PO PRN (22:25)
[2022-10-21] MEDS ORDERED: acetaminophen 325mg tablet PO PRN (22:25)
[2022-10-21] MEDS ORDERED: diphenhydrAMINE 50 mg/ml inj IV PRN (22:25)
[2022-10-21] MEDS ORDERED: LORazepam 2 mg/ml vial IV PRN (22:25)
[2022-10-21] MEDS ORDERED: dextrose 50%-water 50ml dispensing syringe IV PRN ×3 (22:25→22:30)
[2022-10-21] MEDS ORDERED: ondansetron 4mg rapidly disintigrating tab PO PRN (22:25)
[2022-10-21] MEDS ORDERED: ondansetron/PF 4mg/2ml inj IV PRN (22:25)
[2022-10-21] MEDS ORDERED: mag hydrox/Alum hydrox/simeth 30ml oral suspension PO PRN (22:25)
[2022-10-21] MEDS ORDERED: acetaminophen 650mg rectal suppository RC PRN (22:25)
[2022-10-21] MEDS ORDERED: haloperidol lactate 5mg/ml inj IM PRN (22:25)
[2022-10-21] MEDS ORDERED: DEXTROSE 15 GM of carb/4 tabs (each vial/BOTTLE has 4 tablets) PO PRN ×2 (22:30)
[2022-10-21] MEDS ORDERED: MESSAGE TO PHARMACY PO ONE (22:30)
[2022-10-21] MEDS ORDERED: glucagon, human recombinant 1mg kit SUBCUT PRN (22:30)
[2022-10-21] MEDS ORDERED: insulin Lispro (HumaLOG) vial - multi-dose SQ SCH (22:30)
--- NOTE | 2022-10-21 23:13 | NUR ---
CALLED MED/SURG UNIT TO GIVE REPORT. PER OVI BLOCK, THE RN HAS NOT BEEN ASSIGNED YET.
[2022-10-21 23:14] LABS: PHOSPHORUS 2.6 MG/DL (2.3-4.5)
[2022-10-22] VITALS (7 sets, daily range): BP systolic 119–145; BP diastolic 75–88
--- NOTE | 2022-10-22 | NUR ---
Patient in room HARRY 343. I have received report from SNOW PABON in ER and had the opportunity to ask questions and assumed patient care. Patient came in with various personal belongings (suitcase, sleeping bag and other bags). Patient educated not to come in with belongings due to high risk transmission of bugs including lice. Patient is rude towards staff.
--- NOTE | 2022-10-22 01:33 | NUR ---
RECEIVED TELE REPORT ON PATIENT FROM [email or web address] THAT PATIENT WAS IN A-FLUTTER. NOTIFIED AND PER DOCTOR LAVON, TO TRANSFER PATIENT TO TELEMETRY FOR CARDIZEM DRIP. VS STABLE( BP 131/88, HR 114, RR 17, T 98.4, O2 AT 96 ON RA).
--- NOTE | 2022-10-22 02:00 | NUR ---
Patient in room PCU 3010. I have received report from Yasmeen BLOCK from [facility] and had the opportunity to ask questions and assume patient care.
--- NOTE | 2022-10-22 02:45 | NUR ---
REPORT GIVEN TO PORSHA BLOCK ON TELE. PATIENT TRANSFERRED TO TELEMETRY UNIT DUE TO IRREGULAR HEAR RATE.
[2022-10-22] MEDS: LORazepam 1 MG tablet PO PRN (02:56)
[2022-10-22] MEDS: HYDROcodone/acetaminophen 5mg/325mg tablet PO PRN (02:56)
--- NOTE | 2022-10-22 06:46 | NUR ---
Problems reprioritized. Patient report given, questions answered & plan of care reviewed with Paolo BLOCK.
[2022-10-22 06:54] LABS: BASOPHILS # (AUTO) 0.1 X10'3 (0-0.2); BASOPHILS % (AUTO) 0.9 % (0-1); EOSINOPHILS # (AUTO) 0.3 X10'3 (0-0.9); EOSINOPHILS % (AUTO) 3.6 % (0-6); HEMATOCRIT 30.7 % (35.0-45.0); HEMOGLOBIN 10.2 g/dl (12.0-16.0); LYMPHOCYTES % (AUTO) 12.8 % (21-51); MEAN CORPUSCULAR HEMOGLOBIN 29.9 PG (27.0-31.0); MEAN CORPUSCULAR HGB CONC 33.3 g/dL (33.0-36.5); MEAN CORPUSCULAR VOLUME 89.7 FL (78-98); MEAN PLATELET VOLUME 6.5 FL (7.4-10.4); MONOCYTES # (AUTO) 0.9 X10'3 (0-0.9); MONOCYTES % (AUTO) 11.3 % (2-12); NEUTROPHILS # (AUTO) 5.9 X10'3 (1.8-7.7); NEUTROPHILS % (AUTO) 71.4 % (42-75); PLATELET COUNT 328 X10'3 (140-440); RED BLOOD COUNT 3.42 X10'6 (4.20-5.60); RED CELL DISTRIBUTION WIDTH 16.8 % (11.5-14.5); WHITE BLOOD COUNT 8.2 X10'3 (4.5-11.0)
[2022-10-22] MEDS: pantoprazole 40mg Tablet.DR PO SCH ×2 (07:30→09:14)
[2022-10-22] MEDS ORDERED: pantoprazole 40mg Tablet.DR PO SCH (07:30)
[2022-10-22 07:34] LABS: ALANINE AMINOTRANSFERASE 80 U/L (12-78); ALBUMIN 2.1 G/DL (3.4-5.0); ALBUMIN/GLOBULIN RATIO 0.4 (1.1-1.5); ALKALINE PHOSPHATASE 105 IU/L (46-116); ANION GAP 8 (8-16); ASPARTATE AMINO TRANSFERASE 103 U/L (10-37); BILIRUBIN,TOTAL 0.5 MG/DL (0.1-1.0); BLOOD UREA NITROGEN 16 MG/DL (7-18); CALCIUM 7.2 MG/DL (8.5-10.1); CHLORIDE 105 MMOL/L (99-107); CREATININE 0.94 MG/DL (0.40-0.90); GLUCOSE 105 MG/DL (70-104); POTASSIUM 4.2 MMOL/L (3.5-5.1); SODIUM 137 MMOL/L (135-145); TOTAL PROTEIN 6.8 G/DL (6.4-8.2); eGFR 62 ML/MIN
[2022-10-22] MEDS: docusate sod 100mg capsule PO SCH ×2 (08:00→20:00)
[2022-10-22] MEDS ORDERED: heparin, porcine 5000 units/ml vial SQ SCH (08:00)
[2022-10-22] MEDS: furosemide 10 MG/1 ML 10ml inj IV SCH ×2 (09:14→20:01)
[2022-10-22] MEDS: folic acid 1mg/0.2ml inj IV SCH (09:14)
[2022-10-22] MEDS: thiamine 100mg/ml 2ml inj. IV SCH ×3 (09:14→21:07)
[2022-10-22] MEDS ORDERED: APIX5TAB3 PO (15:55)
[2022-10-22] MEDS ORDERED: FOLI1TAB27 PO (15:55)
[2022-10-22] MEDS ORDERED: NALT50TA PO (15:55)
[2022-10-22] MEDS ORDERED: BECL7.3A INH (15:55)
[2022-10-22] MEDS ORDERED: CYCL5TAB PO (15:55)
[2022-10-22] MEDS ORDERED: BUPR100T15 PO (15:55)
[2022-10-22] MEDS ORDERED: GABA300C PO (15:55)
[2022-10-22] MEDS ORDERED: ASPI-1071 PO (15:55)
[2022-10-22] MEDS ORDERED: CARV25TA56 PO (15:55)
[2022-10-22] MEDS ORDERED: ATOR10TA70 PO (15:55)
[2022-10-22] MEDS ORDERED: LEVA15HF6 PO (15:58)
[2022-10-22] MEDS ORDERED: FURO20TA4 PO (15:58)
[2022-10-22] MEDS ORDERED: POTA-208 PO (15:58)
[2022-10-22] MEDS ORDERED: NIAC100045 PO (15:58)
[2022-10-22] MEDS ORDERED: PANT40TA54 PO (15:58)
[2022-10-22] MEDS ORDERED: SPIR25TA5 PO (15:58)
[2022-10-22] MEDS ORDERED: cyclobenzaprine 10mg tablet PO PRN (17:25)
--- NOTE | 2022-10-22 18:35 | NUR ---
Patient in room PCU 3014. I have received report from Paolo BLOCK and had the opportunity to ask questions and assume patient care.
[2022-10-22] MEDS: budesonide 0.5mg/2ml UD nebule IH SCH (19:37)
[2022-10-22] MEDS: albuterol 2.5 MG/3 ML nebule NEB PRN (19:38)
[2022-10-22] MEDS: carVEDilol 12.5mg tablet PO SCH (20:00)
[2022-10-22] MEDS: apixaban 5mg tablet PO SCH (20:00)
[2022-10-22] MEDS: buPROPion SR 100mg tab PO SCH (21:56)
[2022-10-22] MEDS: gabapentin 300mg capsule PO SCH (21:59)
[2022-10-22] MEDS: niacin 500mg ER (Niaspan) tablet PO SCH (21:59)
[2022-10-23 06:00] VITALS: BP 147/82
--- NOTE | 2022-10-23 06:14 | NUR ---
Problems reprioritized. Patient report given, questions answered & plan of care reviewed with Qiana PABON.
[2022-10-23 07:07] LABS: BASOPHILS # (AUTO) 0.1 X10'3 (0-0.2); BASOPHILS % (AUTO) 0.8 % (0-1); EOSINOPHILS # (AUTO) 0.3 X10'3 (0-0.9); EOSINOPHILS % (AUTO) 3.4 % (0-6); HEMATOCRIT 32.4 % (35.0-45.0); HEMOGLOBIN 10.7 g/dl (12.0-16.0); LYMPHOCYTES # (AUTO) 1.1 X10'3 (1.1-4.8); LYMPHOCYTES % (AUTO) 14.1 % (21-51); MEAN CORPUSCULAR HEMOGLOBIN 29.8 PG (27.0-31.0); MEAN CORPUSCULAR VOLUME 90.2 FL (78-98); MEAN PLATELET VOLUME 7.2 FL (7.4-10.4); MONOCYTES # (AUTO) 1.1 X10'3 (0-0.9); MONOCYTES % (AUTO) 13.4 % (2-12); NEUTROPHILS # (AUTO) 5.4 X10'3 (1.8-7.7); NEUTROPHILS % (AUTO) 68.3 % (42-75); PLATELET COUNT 325 X10'3 (140-440); RED BLOOD COUNT 3.59 X10'6 (4.20-5.60); RED CELL DISTRIBUTION WIDTH 17.1 % (11.5-14.5); WHITE BLOOD COUNT 7.9 X10'3 (4.5-11.0)
[2022-10-23 07:43] LABS: ALANINE AMINOTRANSFERASE 75 U/L (12-78); ALBUMIN 2.1 G/DL (3.4-5.0); ALBUMIN/GLOBULIN RATIO 0.5 (1.1-1.5); ALKALINE PHOSPHATASE 97 IU/L (46-116); ANION GAP 7 (8-16); ASPARTATE AMINO TRANSFERASE 97 U/L (10-37); BILIRUBIN,TOTAL 0.5 MG/DL (0.1-1.0); BLOOD UREA NITROGEN 17 MG/DL (7-18); CALCIUM 7.5 MG/DL (8.5-10.1); CHLORIDE 104 MMOL/L (99-107); GLUCOSE 125 MG/DL (70-104); SODIUM 138 MMOL/L (135-145); TOTAL CARBON DIOXIDE 27.5 MMOL/L (24-32); TOTAL PROTEIN 6.7 G/DL (6.4-8.2); eGFR 57 ML/MIN
[2022-10-23 07:50] LABS: POTASSIUM 4.8 MMOL/L (3.5-5.1)
[2022-10-23] MEDS: naltrexone 50mg tablet PO SCH (08:00)
[2022-10-23] MEDS ORDERED: pantoprazole 40mg Tablet.DR PO SCH (08:00)
[2022-10-23] MEDS: thiamine 100mg/ml 2ml inj. IV SCH (08:02)
[2022-10-23] MEDS: furosemide 10 MG/1 ML 10ml inj IV SCH ×2 (08:04→19:51)
[2022-10-23] MEDS: folic acid 1mg/0.2ml inj IV SCH (08:08)
[2022-10-23] MEDS: HYDROcodone/acetaminophen 5mg/325mg tablet PO PRN (12:48)
[2022-10-23] MEDS: apixaban 5mg tablet PO SCH ×2 (12:48→19:50)
[2022-10-23] MEDS: aspirin 81mg, enteric-coated 1 TAB TABLET.DR PO SCH (12:50)
[2022-10-23] MEDS: folic acid 0.4mg tablet PO SCH (12:50)
[2022-10-23] MEDS: atorvastatin 10mg tablet PO SCH ×2 (12:50→12:56)
[2022-10-23] MEDS: docusate sod 100mg capsule PO SCH ×2 (12:51→19:51)
[2022-10-23] MEDS: thiamine 100mg tablet PO SCH (12:51)
[2022-10-23] MEDS: spironolactone 25 MG tablet PO SCH (12:52)
[2022-10-23] MEDS: potassium Cl 20 mEq SR tablet PO SCH (12:53)
[2022-10-23] MEDS: pantoprazole 40mg Tablet.DR PO SCH (12:56)
[2022-10-23] MEDS: carVEDilol 12.5mg tablet PO SCH ×2 (13:02→19:50)
--- NOTE | 2022-10-23 13:26 | NUR ---
PAGER ID: [phone] MESSAGE: [id number] EUGENE GORDON-REFUSING NLTREXONE 50MG. STATES IT MAKES HER SICK, MAY WE D/C? -SHAMIR [id number].
[2022-10-23] MEDS: buPROPion SR 100mg tab PO SCH ×2 (13:39→19:50)
--- NOTE | 2022-10-23 17:39 | NUR ---
AGREE WITH EXHIBITION DESIGNER ASSESSMENT
[2022-10-23 18:31] VITALS: BP 109/72
[2022-10-23] MEDS: budesonide 0.5mg/2ml UD nebule IH SCH (19:49)
[2022-10-23] MEDS: gabapentin 300mg capsule PO SCH (19:50)
[2022-10-23] MEDS: niacin 500mg ER (Niaspan) tablet PO SCH (19:50)
[2022-10-23 22:00] VITALS: BP 88/56
[2022-10-24 02:00] VITALS: BP 101/68
[2022-10-24 06:00] VITALS: BP 131/87
--- NOTE | 2022-10-24 06:14 | NUR ---
Problems reprioritized. Patient report given, questions answered & plan of care reviewed with MCKAYLA CELIS.
[2022-10-24 07:26] LABS: BASOPHILS # (AUTO) 0.1 X10'3 (0-0.2); EOSINOPHILS # (AUTO) 0.3 X10'3 (0-0.9); EOSINOPHILS % (AUTO) 3.8 % (0-6); HEMATOCRIT 32.5 % (35.0-45.0); HEMOGLOBIN 10.4 g/dl (12.0-16.0); LYMPHOCYTES # (AUTO) 1.1 X10'3 (1.1-4.8); LYMPHOCYTES % (AUTO) 14.4 % (21-51); MEAN CORPUSCULAR HEMOGLOBIN 28.9 PG (27.0-31.0); MEAN CORPUSCULAR HGB CONC 31.9 g/dL (33.0-36.5); MEAN CORPUSCULAR VOLUME 90.9 FL (78-98); MEAN PLATELET VOLUME 7.1 FL (7.4-10.4); MONOCYTES # (AUTO) 0.9 X10'3 (0-0.9); MONOCYTES % (AUTO) 12.8 % (2-12); PLATELET COUNT 322 X10'3 (140-440); RED BLOOD COUNT 3.58 X10'6 (4.20-5.60); WHITE BLOOD COUNT 7.3 X10'3 (4.5-11.0)
[2022-10-24 07:51] LABS: ALANINE AMINOTRANSFERASE 80 U/L (12-78); ALBUMIN 2.1 G/DL (3.4-5.0); ALBUMIN/GLOBULIN RATIO 0.5 (1.1-1.5); ALKALINE PHOSPHATASE 101 IU/L (46-116); ANION GAP 4 (8-16); ASPARTATE AMINO TRANSFERASE 95 U/L (10-37); BILIRUBIN,TOTAL 0.4 MG/DL (0.1-1.0); BLOOD UREA NITROGEN 17 MG/DL (7-18); BUN/CREATININE RATIO 16.2 (6.6-38.0); CHLORIDE 103 MMOL/L (99-107); CREATININE 1.05 MG/DL (0.40-0.90); GLUCOSE 119 MG/DL (70-104); POTASSIUM 4.5 MMOL/L (3.5-5.1); SODIUM 138 MMOL/L (135-145); TOTAL CARBON DIOXIDE 30.9 MMOL/L (24-32); TOTAL PROTEIN 6.7 G/DL (6.4-8.2); eGFR 54 ML/MIN
[2022-10-24] MEDS: docusate sod 100mg capsule PO SCH ×3 (08:00→20:00)
[2022-10-24] MEDS: buPROPion SR 100mg tab PO SCH ×2 (08:31→19:30)
[2022-10-24] MEDS: apixaban 5mg tablet PO SCH ×2 (08:31→19:30)
[2022-10-24] MEDS: thiamine 100mg tablet PO SCH (08:31)
[2022-10-24] MEDS: naltrexone 50mg tablet PO SCH (08:31)
[2022-10-24] MEDS: pantoprazole 40mg Tablet.DR PO SCH (08:31)
[2022-10-24] MEDS: carVEDilol 12.5mg tablet PO SCH ×2 (08:31→19:30)
[2022-10-24] MEDS: spironolactone 25 MG tablet PO SCH (08:32)
[2022-10-24] MEDS: atorvastatin 10mg tablet PO SCH (08:32)
[2022-10-24] MEDS: folic acid 0.4mg tablet PO SCH (08:32)
[2022-10-24] MEDS: aspirin 81mg, enteric-coated 1 TAB TABLET.DR PO SCH (08:32)
[2022-10-24] MEDS: potassium Cl 20 mEq SR tablet PO SCH (08:32)
[2022-10-24] MEDS: LORazepam 1 MG tablet PO PRN (08:33)
[2022-10-24] MEDS: furosemide 10 MG/1 ML 10ml inj IV SCH ×2 (08:33→19:41)
[2022-10-24] MEDS: budesonide 0.5mg/2ml UD nebule IH SCH ×2 (09:00→20:36)
--- NOTE | 2022-10-24 09:27 | NUR ---
paged Painter Ski Edge re: Pt would like to speak to you regarding housing. pt is homeless and no longer wants "to live on the streets".
[2022-10-24 10:41] VITALS: BP 116/76
--- NOTE | 2022-10-24 13:26 | NUR ---
informed Dr. Sherwood that pt has been having pauses up to 4.0seconds long. pt normally in aflutter 110s. Dr. Sherwood states to monitor.
--- NOTE | 2022-10-24 14:28 | NUR ---
paged Dr. Sherwood re: Wound RN thinks pt's Diabetic Ulcer on R foot should be cultured. You ok if i order one?
--- NOTE | 2022-10-24 15:30 | NUR ---
DIABETIC FOOT CARE EDUCATION PROVIDED BY WOUND CARE * Wash your feet daily with lukewarm water and soap. * Dry your feet well, especially between the toes. * Keep the skin moisturized with lotion, but do not apply it between the toes. * Check your feet for blisters, cuts or sores. * Use an emery board to shape your toenails even with the ends of your toes. * Change daily into clean, soft socks or stockings, not too big or too small. * Keep your feet warm and dry. * Preferably wear special padded socks and shoes that fit well. * Never walk barefoot indoors or outdoors. * Examine your shoes everyday for cracks, moses, nails or anything that could hurt your feet. * Tell your doctor if you find any of these problems or have any concerns after examining your feet. Addendum: 10/24/22 at 1530 by Marcela King LVN Amended: Links added.
[2022-10-24] MEDS: clindamycin 300mg/D5W 50mL 50 ML IV SCH ×2 (16:00→19:30)
--- NOTE | 2022-10-24 17:07 | NUR ---
paged enrollment services dean again re: Pt is asking again to speak to you regarding housing as she is currently homeless.
--- NOTE | 2022-10-24 18:19 | NUR ---
Patient in room PCU 3014. I have received report from lila Boone and had the opportunity to ask questions and assume patient care.
[2022-10-24 19:00] VITALS: BP 117/75
[2022-10-24] MEDS: gabapentin 300mg capsule PO SCH ×2 (19:30→20:20)
[2022-10-24] MEDS: niacin 500mg ER (Niaspan) tablet PO SCH ×2 (19:32→20:20)
[2022-10-24] MEDS: albuterol 2.5 MG/3 ML nebule NEB PRN (20:36)
[2022-10-24 22:00] VITALS: BP 132/78
[2022-10-25] MEDS: clindamycin 300mg/D5W 50mL 50 ML IV SCH ×4 (01:27→19:23)
[2022-10-25 01:57] VITALS: BP 99/71
[2022-10-25 06:00] VITALS: BP 110/70
--- NOTE | 2022-10-25 06:28 | NUR ---
Problems reprioritized. Patient report given, questions answered & plan of care reviewed with MCKAYLA CELIS.
[2022-10-25 06:52] LABS: BASOPHILS # (AUTO) 0.1 X10'3 (0-0.2); BASOPHILS % (AUTO) 1.1 % (0-1); EOSINOPHILS # (AUTO) 0.3 X10'3 (0-0.9); EOSINOPHILS % (AUTO) 3.7 % (0-6); HEMATOCRIT 31.1 % (35.0-45.0); HEMOGLOBIN 10.5 g/dl (12.0-16.0); LYMPHOCYTES # (AUTO) 0.9 X10'3 (1.1-4.8); LYMPHOCYTES % (AUTO) 11.9 % (21-51); MEAN CORPUSCULAR HGB CONC 33.7 g/dL (33.0-36.5); MEAN CORPUSCULAR VOLUME 88.9 FL (78-98); MEAN PLATELET VOLUME 6.8 FL (7.4-10.4); MONOCYTES # (AUTO) 0.9 X10'3 (0-0.9); MONOCYTES % (AUTO) 11.6 % (2-12); NEUTROPHILS # (AUTO) 5.4 X10'3 (1.8-7.7); NEUTROPHILS % (AUTO) 71.7 % (42-75); PLATELET COUNT 324 X10'3 (140-440); RED CELL DISTRIBUTION WIDTH 16.8 % (11.5-14.5); WHITE BLOOD COUNT 7.6 X10'3 (4.5-11.0)
[2022-10-25] MEDS: docusate sod 100mg capsule PO SCH ×2 (08:00→20:03)
[2022-10-25 08:03] LABS: ALANINE AMINOTRANSFERASE 89 U/L (12-78); ALBUMIN/GLOBULIN RATIO 0.4 (1.1-1.5); ALKALINE PHOSPHATASE 102 IU/L (46-116); ANION GAP 5 (8-16); ASPARTATE AMINO TRANSFERASE 93 U/L (10-37); BILIRUBIN,TOTAL 0.4 MG/DL (0.1-1.0); BLOOD UREA NITROGEN 15 MG/DL (7-18); BUN/CREATININE RATIO 13.9 (6.6-38.0); CALCIUM 8.1 MG/DL (8.5-10.1); CHLORIDE 103 MMOL/L (99-107); CREATININE 1.08 MG/DL (0.40-0.90); GLUCOSE 134 MG/DL (70-104); POTASSIUM 4.5 MMOL/L (3.5-5.1); SODIUM 137 MMOL/L (135-145); TOTAL CARBON DIOXIDE 28.6 MMOL/L (24-32); TOTAL PROTEIN 6.8 G/DL (6.4-8.2); eGFR 52 ML/MIN
[2022-10-25] MEDS: budesonide 0.5mg/2ml UD nebule IH SCH ×2 (09:00→20:23)
--- NOTE | 2022-10-25 09:18 | NUR ---
Initial: Pt presented with c/o SOB, admit for CHF. Pt with EtOH hx, currently receiving routine Thiamine and Folic acid. Pt may benefit from routine MVI as well. Pt on a CHO controlled 2 g Na restricted diet and eating well, documented with 100% PO intake throughout LOS meeting estimated nutrient needs. Recommend discontinuing CHO controlled restriction as pt with no documented h/o DM, A1c 6.1% from 07/16 (down from 6.4% 01/18 per EMR), and BG range 83-161 mg/dL since admit. LBM 10/24, documented as moderate in size. No nutrition intervention implemented at this time. Will continue to follow. Recommendations: 1) Continue 2 g Na restricted diet; consider removing CHO restriction given no PMH DM per EMR 2) Monitor need for additional food for satiety 3) Continue routine Thiamine and Folic acid for EtOH hx, consider adding routine MVI 4) Routine bowel care 5) Daily scaled weights per rx Addendum: 10/25/22 at [address] Amended: Links added.
--- NOTE | 2022-10-25 09:41 | NUR ---
Paged SW re: Pt is asking again to speak to you regarding housing as she is currently homeless.
[2022-10-25] MEDS: carVEDilol 12.5mg tablet PO SCH ×2 (09:48→20:04)
[2022-10-25] MEDS: folic acid 0.4mg tablet PO SCH (09:48)
[2022-10-25] MEDS: aspirin 81mg, enteric-coated 1 TAB TABLET.DR PO SCH (09:49)
[2022-10-25] MEDS: buPROPion SR 100mg tab PO SCH ×2 (09:49→20:03)
[2022-10-25] MEDS: furosemide 10 MG/1 ML 10ml inj IV SCH ×2 (09:50→20:00)
[2022-10-25] MEDS: potassium Cl 20 mEq SR tablet PO SCH (09:50)
[2022-10-25] MEDS: apixaban 5mg tablet PO SCH ×2 (09:51→20:04)
[2022-10-25] MEDS: atorvastatin 10mg tablet PO SCH (09:52)
[2022-10-25] MEDS: naltrexone 50mg tablet PO SCH (09:52)
[2022-10-25] MEDS: spironolactone 25 MG tablet PO SCH (09:53)
[2022-10-25] MEDS: pantoprazole 40mg Tablet.DR PO SCH (09:53)
[2022-10-25] MEDS: thiamine 100mg tablet PO SCH (09:53)
[2022-10-25 10:15] VITALS: BP 143/95
[2022-10-25] MEDS: nicotine 14mg patch - 24hr TD SCH (10:40)
--- NOTE | 2022-10-25 14:10 | NUR ---
re-paged social work re: Pt is asking again to speak to you regarding housing as she is currently homeless.
[2022-10-25 14:31] VITALS: BP 98/61
--- NOTE | 2022-10-25 14:58 | NUR ---
Performed dressing change on RLE. Pt tolerated well (slept throughout). Wound was dry on exposure, unable to obtain culture at this time, will relay to noc shift. NS, xeroform, gauze, kerlix and reinforced with coban.
[2022-10-25 18:00] VITALS: BP 110/80
[2022-10-25] MEDS ORDERED: LORazepam 1 MG tablet PO PRN (19:40)
[2022-10-25] MEDS ORDERED: LORazepam 2 mg/ml vial IV PRN (19:40)
--- NOTE | 2022-10-25 19:43 | NUR ---
PT REFUSES ANYTHING IV. "I'M NOT GOING TO DO ANYMORE iV STUFF. YOU CHANGE EVERYGTHING TO PILL" I ANSWERED I'M GOING TO TALK TO DOCTOR AND PT REPLIED " YOU ARE NOT TALKING TO DOCTOR. YOU CHANGED IT" I CALLED DR BARCLAY REGARDING CLINDAMYCIN AND LASIX. WILL PUT ORDER FOR PO CLINDAMYCIN BUT SHE WON'T CHANGE LASIX TO PO. BUT NOT GOING TO CHANGE LASIX TO PO. BUT FOR NOW SHE CAN HAVE ONE TIME DOSE PO LASIX. I RECIEVED ONE TIME PO ATIVAN ORDER FOR AGITATION TOO.
[2022-10-25] MEDS ORDERED: furosemide 20MG tablet PO ONE (19:49)
[2022-10-25] MEDS: niacin 500mg ER (Niaspan) tablet PO SCH (20:03)
[2022-10-25] MEDS: gabapentin 300mg capsule PO SCH (20:03)
[2022-10-25] MEDS: albuterol 2.5 MG/3 ML nebule NEB PRN (20:23)
[2022-10-25] MEDS: clindamycin 150mg capsule PO SCH (20:46)
[2022-10-25 22:00] VITALS: BP 122/83
[2022-10-26 02:00] VITALS: BP 102/70
[2022-10-26] MEDS: clindamycin 150mg capsule PO SCH ×2 (02:00→07:21)
[2022-10-26 06:00] VITALS: BP 111/68
--- NOTE | 2022-10-26 06:06 | NUR ---
Problems reprioritized. Patient report given, questions answered & plan of care reviewed with MCKAYLA FREED.
[2022-10-26 06:44] LABS: BASOPHILS # (AUTO) 0.1 X10'3 (0-0.2); BASOPHILS % (AUTO) 1.3 % (0-1); EOSINOPHILS # (AUTO) 0.2 X10'3 (0-0.9); EOSINOPHILS % (AUTO) 3.2 % (0-6); HEMOGLOBIN 10.5 g/dl (12.0-16.0); LYMPHOCYTES % (AUTO) 13.9 % (21-51); MEAN CORPUSCULAR HEMOGLOBIN 30.3 PG (27.0-31.0); MEAN CORPUSCULAR HGB CONC 33.8 g/dL (33.0-36.5); MEAN CORPUSCULAR VOLUME 89.7 FL (78-98); MEAN PLATELET VOLUME 6.9 FL (7.4-10.4); MONOCYTES # (AUTO) 0.9 X10'3 (0-0.9); MONOCYTES % (AUTO) 12.3 % (2-12); NEUTROPHILS # (AUTO) 4.9 X10'3 (1.8-7.7); NEUTROPHILS % (AUTO) 69.3 % (42-75); PLATELET COUNT 310 X10'3 (140-440); RED BLOOD COUNT 3.46 X10'6 (4.20-5.60); RED CELL DISTRIBUTION WIDTH 16.8 % (11.5-14.5)
--- NOTE | 2022-10-26 06:52 | NUR ---
Patient in room PCU 3014. I have received report from JENNIFER BLOCK and had the opportunity to ask questions and assume patient care.
[2022-10-26] MEDS: furosemide 10 MG/1 ML 10ml inj IV SCH (07:21)
[2022-10-26] MEDS: folic acid 0.4mg tablet PO SCH (07:21)
[2022-10-26] MEDS: pantoprazole 40mg Tablet.DR PO SCH (07:21)
[2022-10-26] MEDS: buPROPion SR 100mg tab PO SCH (07:21)
[2022-10-26] MEDS: apixaban 5mg tablet PO SCH (07:22)
[2022-10-26] MEDS: carVEDilol 12.5mg tablet PO SCH (07:22)
[2022-10-26] MEDS: spironolactone 25 MG tablet PO SCH (07:22)
[2022-10-26] MEDS: docusate sod 100mg capsule PO SCH (07:22)
[2022-10-26] MEDS: aspirin 81mg, enteric-coated 1 TAB TABLET.DR PO SCH (07:23)
[2022-10-26] MEDS: thiamine 100mg tablet PO SCH (07:24)
[2022-10-26] MEDS: potassium Cl 20 mEq SR tablet PO SCH (07:24)
[2022-10-26] MEDS: nicotine 14mg patch - 24hr TD SCH (07:27)
[2022-10-26 07:29] LABS: ALANINE AMINOTRANSFERASE 85 U/L (12-78); ALBUMIN 2.1 G/DL (3.4-5.0); ALBUMIN/GLOBULIN RATIO 0.5 (1.1-1.5); ALKALINE PHOSPHATASE 108 IU/L (46-116); ANION GAP 6 (8-16); ASPARTATE AMINO TRANSFERASE 100 U/L (10-37); BILIRUBIN,TOTAL 0.3 MG/DL (0.1-1.0); BLOOD UREA NITROGEN 15 MG/DL (7-18); BUN/CREATININE RATIO 13.8 (6.6-38.0); CALCIUM 8.2 MG/DL (8.5-10.1); CHLORIDE 102 MMOL/L (99-107); CREATININE 1.09 MG/DL (0.40-0.90); GLUCOSE 136 MG/DL (70-104); POTASSIUM 4.5 MMOL/L (3.5-5.1); SODIUM 137 MMOL/L (135-145); TOTAL CARBON DIOXIDE 29.2 MMOL/L (24-32); TOTAL PROTEIN 6.7 G/DL (6.4-8.2); eGFR 52 ML/MIN
[2022-10-26] MEDS ORDERED: atorvastatin 10mg tablet PO SCH (07:33)
[2022-10-26] MEDS: naltrexone 50mg tablet PO SCH (07:36)
[2022-10-26] MEDS ORDERED: thiamine 100mg tablet PO SCH (08:00)
[2022-10-26] MEDS ORDERED: folic acid 1mg tablet PO SCH (08:00)
[2022-10-26] MEDS: budesonide 0.5mg/2ml UD nebule IH SCH (08:10)
[2022-10-26 10:00] VITALS: BP 114/55
[2022-10-26] MEDS ORDERED: CLIN-97 PO (11:12)
--- NOTE | 2022-10-26 12:11 | NUR ---
went in to do pts wound care and pictures, she refused and stated she already had her socks on and doesn't need any wound care or pictures. she also ripped out her iv and had put her own bandage on it. the iv looked good and cannula is intact. pt is non compliant and is aware.
--- NOTE | 2022-10-26 12:18 | NUR ---
pt refused blood glucose assessment. pt is noncompliant
--- NOTE | 2022-10-26 12:33 | NUR ---
pt refused to have her wound pictures taken, charge nurse is aware. Addendum: 10/26/22 at 1234 by Bindu Sherman RN Amended: Links added.
--- NOTE | 2022-10-26 13:37 | NUR ---
pt is stable for discharge, resources were provided to her by social welfare clerk, iv is dc and cannula is intact, all belongings take, pt did refuse wound care and pictures on discharge, she can be noncompliant. she was walked down to the lobby and we called a cab for her to pick her up. she was accompanied with a friend.
== END 2022-10-26 13:05 | disposition home or self-care (01) | DRG 194 ==
LOC: ER 18:30 → ED HOLD 22:26 → SUR 3N 23:40 → PCU 3S 10-22 02:19
PROVIDERS: ADMIT Family Medicine; ATTEND Family Medicine
DX: I11.0 Hypertensive heart disease with heart failure (principal); I27.20 Pulmonary hypertension, unspecified; I42.7 Cardiomyopathy due to drug and external agent; N17.9 Acute kidney failure, unspecified; I48.92 Unspecified atrial flutter; E11.621 Type 2 diabetes mellitus with foot ulcer; D64.9 Anemia, unspecified; I48.91 Unspecified atrial fibrillation; E11.65 Type 2 diabetes mellitus with hyperglycemia; K70.9 Alcoholic liver disease, unspecified; L30.8 Other specified dermatitis; L97.529 Non-pressure chronic ulcer of other part of left foot with unspecified severity; I50.23 Acute on chronic systolic (congestive) heart failure; K74.60 Unspecified cirrhosis of liver; B19.20 Unspecified viral hepatitis C without hepatic coma; K21.9 Gastro-esophageal reflux disease without esophagitis; M54.9 Dorsalgia, unspecified; E78.5 Hyperlipidemia, unspecified; F10.20 Alcohol dependence, uncomplicated; F15.10 Other stimulant abuse, uncomplicated; F17.210 Nicotine dependence, cigarettes, uncomplicated; G89.4 Chronic pain syndrome; J44.9 Chronic obstructive pulmonary disease, unspecified; Z59.00 Homelessness unspecified; Z91.199 Patient's noncompliance with other medical treatment and regimen due to unspecified reason; Z88.8 Allergy status to other drugs, medicaments and biological substances; Z79.899 Other long term (current) drug therapy; Z79.82 Long term (current) use of aspirin; Z71.6 Tobacco abuse counseling; Z71.41 Alcohol abuse counseling and surveillance of alcoholic; Z71.51 Drug abuse counseling and surveillance of drug abuser
CPT/HCPCS: 36415; 71045; 80053; 82948; 83735; 83880; 84100; 84484; 85025; 85610; 87040; 87081; 93005; 94640; 94760; 99285; A6222; A6223; A6446; A6449; G0378; J0696; J1815; J1940; J2060; J2405; J3411; J3490; J7040

== ENCOUNTER 2022-11-14 13:53 | Emergency (ER) | payer MEDICAID ==
[~2022-11-14 13:53] MED LIST changes: +ASPI-1071 PO; -ASPI81TA52 PO; -ATOR10TA PO; +ATOR10TA70 PO; -BECL10.6 INH; +BECL7.3A INH; +BUPR100T15 PO; -BUPR100T5 PO; -CARV25TA2 PO; +CARV25TA56 PO; +CLIN-97 PO; -CYCL-392 PO; +CYCL5TAB PO; -FURO-150 PO; +FURO20TA4 PO; -LEVA15HF4 INH; +LEVA15HF6 PO; -NIA500ERT PO; +NIAC100045 PO; -PANT-47 PO; +PANT40TA54 PO; +POTA-208 PO; -POTA-82 PO
[2022-11-14] MEDS ORDERED: furosemide 40mg/4ml inj IV ONE (18:20)
[2022-11-14] MEDS ORDERED: labetalol 20mg/4ml (5mg/ml) syringe IV ONE (18:43)
[2022-11-14] MEDS ORDERED: LIDOCAINE 2%/EPI 1:100,000 inj. Multi-dose 20 ML VIAL SQ ONE (18:44)
[2022-11-14 19:26] LABS: BASOPHILS # (AUTO) 0.1 X10'3 (0-0.2); BASOPHILS % (AUTO) 1.2 % (0-1); EOSINOPHILS # (AUTO) 0.3 X10'3 (0-0.9); EOSINOPHILS % (AUTO) 5.4 % (0-6); HEMATOCRIT 30.1 % (35.0-45.0); HEMOGLOBIN 9.9 g/dl (12.0-16.0); LYMPHOCYTES # (AUTO) 0.9 X10'3 (1.1-4.8); LYMPHOCYTES % (AUTO) 13.8 % (21-51); MEAN CORPUSCULAR HGB CONC 32.8 g/dL (33.0-36.5); MEAN CORPUSCULAR VOLUME 91.5 FL (78-98); MEAN PLATELET VOLUME 6.6 FL (7.4-10.4); MONOCYTES # (AUTO) 0.8 X10'3 (0-0.9); MONOCYTES % (AUTO) 12.2 % (2-12); NEUTROPHILS # (AUTO) 4.3 X10'3 (1.8-7.7); NEUTROPHILS % (AUTO) 67.4 % (42-75); PLATELET COUNT 276 X10'3 (140-440); RED BLOOD COUNT 3.29 X10'6 (4.20-5.60); RED CELL DISTRIBUTION WIDTH 17.6 % (11.5-14.5); WHITE BLOOD COUNT 6.4 X10'3 (4.5-11.0)
[2022-11-14 19:45] LABS: ALANINE AMINOTRANSFERASE 41 U/L (12-78); ALBUMIN 2.5 G/DL (3.4-5.0); ALBUMIN/GLOBULIN RATIO 0.5 (1.1-1.5); ALKALINE PHOSPHATASE 119 IU/L (46-116); ANION GAP 8 (8-16); ASPARTATE AMINO TRANSFERASE 37 U/L (10-37); BILIRUBIN,TOTAL 0.5 MG/DL (0.1-1.0); BLOOD UREA NITROGEN 19 MG/DL (7-18); BUN/CREATININE RATIO 17.1 (6.6-38.0); CALCIUM 8.4 MG/DL (8.5-10.1); CHLORIDE 104 MMOL/L (99-107); CREATININE 1.11 MG/DL (0.40-0.90); POTASSIUM 3.7 MMOL/L (3.5-5.1); SODIUM 141 MMOL/L (135-145); TOTAL CARBON DIOXIDE 29.3 MMOL/L (24-32); TOTAL PROTEIN 7.4 G/DL (6.4-8.2); eGFR 51 ML/MIN
[2022-11-14 19:51] LABS: GLUCOSE 140 MG/DL (70-104)
[2022-11-14] MEDS ORDERED: ipratropium/albuterol 3ml nebule NEB ONE (22:00)
--- NOTE | 2022-11-14 22:18 | NUR ---
bandages to pt lower extremeties rebandaged for pt d/c
[2022-11-14 22:54] VITALS: BP 138/89
== END 2022-11-14 22:56 | disposition home or self-care (01) ==
LOC: ER 13:53
DX: R18.8 Other ascites (principal); R20.0 Anesthesia of skin; I11.0 Hypertensive heart disease with heart failure; I50.9 Heart failure, unspecified; J44.9 Chronic obstructive pulmonary disease, unspecified; Z91.14 Patient's other noncompliance with medication regimen; E78.00 Pure hypercholesterolemia, unspecified; K21.9 Gastro-esophageal reflux disease without esophagitis; G89.29 Other chronic pain; F17.200 Nicotine dependence, unspecified, uncomplicated; F15.90 Other stimulant use, unspecified, uncomplicated; Z72.89 Other problems related to lifestyle; Z86.19 Personal history of other infectious and parasitic diseases; Z60.2 Problems related to living alone; Z59.00 Homelessness unspecified; Z88.6 Allergy status to analgesic agent; Z79.82 Long term (current) use of aspirin; Z79.01 Long term (current) use of anticoagulants; Z79.899 Other long term (current) drug therapy
CPT/HCPCS: 36415; 49083; 71045; 80053; 83880; 85025; 93005; 94640; 96374; 96375; 99285; J1940; J3490; 94760; A6258; A6446; A6449

== ENCOUNTER 2022-11-19 18:16 | Emergency (ER) | payer MEDICAID ==
[~2022-11-19] VITALS: Ht 175.3 cm; Wt 116.4 kg
[2022-11-19 18:50] VITALS: BP 160/103
[2022-11-19 18:56] LABS: HEMOGLOBIN 10.8 g/dl (12.0-16.0); RED BLOOD COUNT 3.71 X10'6 (4.20-5.60)
[2022-11-19 18:58] LABS: BASOPHILS # (AUTO) 0.1 X10'3 (0-0.2); BASOPHILS % (AUTO) 0.7 % (0-1); EOSINOPHILS # (AUTO) 0.2 X10'3 (0-0.9); EOSINOPHILS % (AUTO) 2.4 % (0-6); HEMATOCRIT 34.2 % (35.0-45.0); LYMPHOCYTES # (AUTO) 0.7 X10'3 (1.1-4.8); LYMPHOCYTES % (AUTO) 8.2 % (21-51); MEAN CORPUSCULAR HEMOGLOBIN 29.1 PG (27.0-31.0); MEAN CORPUSCULAR HGB CONC 31.6 g/dL (33.0-36.5); MEAN CORPUSCULAR VOLUME 92.2 FL (78-98); MEAN PLATELET VOLUME 6.8 FL (7.4-10.4); MONOCYTES # (AUTO) 0.9 X10'3 (0-0.9); MONOCYTES % (AUTO) 10.5 % (2-12); NEUTROPHILS # (AUTO) 6.4 X10'3 (1.8-7.7); NEUTROPHILS % (AUTO) 78.2 % (42-75); PLATELET COUNT 327 X10'3 (140-440); RED CELL DISTRIBUTION WIDTH 17.3 % (11.5-14.5); WHITE BLOOD COUNT 8.1 X10'3 (4.5-11.0)
[2022-11-19 19:15] LABS: ALANINE AMINOTRANSFERASE 31 U/L (12-78); ALBUMIN 2.9 G/DL (3.4-5.0); ALBUMIN/GLOBULIN RATIO 0.5 (1.1-1.5); ALKALINE PHOSPHATASE 141 IU/L (46-116); ANION GAP 1 (8-16); ASPARTATE AMINO TRANSFERASE 33 U/L (10-37); BILIRUBIN,TOTAL 0.4 MG/DL (0.1-1.0); BLOOD UREA NITROGEN 19 MG/DL (7-18); CALCIUM 7.7 MG/DL (8.5-10.1); CHLORIDE 105 MMOL/L (99-107); CREATININE 1.12 MG/DL (0.40-0.90); MAGNESIUM 2.2 MG/DL (1.5-2.4); POTASSIUM 3.9 MMOL/L (3.5-5.1); SODIUM 139 MMOL/L (135-145); TOTAL CARBON DIOXIDE 32.7 MMOL/L (24-32); TOTAL PROTEIN 8.6 G/DL (6.4-8.2); eGFR 50 ML/MIN
[2022-11-19 19:16] LABS: GLUCOSE 113 MG/DL (70-104)
[2022-11-19] MEDS ORDERED: furosemide 20MG tablet PO ONE (21:10)
--- NOTE | 2022-11-20 07:12 | NUR ---
Call placed to [facility] to see if pt is allowed services there. I am told she is NOT on the list and she is able to come there. pt will be offered a taxi to their location.
--- NOTE | 2022-11-20 07:21 | NUR ---
pt had been up for re-eval for over 5 hrs. per NOC RN pt rec'd PO lasix and then slept all night. pt was sleeping when I entered the room. her IV was removed and she was told her was being discharged. she immediately became uspet and would not cooperate with discharge vitals. I advised her that she was clear for d\\c and needed to f\\u with her PMD and that we would provide a taxi to the [facility] for her. She states she [facility] not welcome [facility] the mission but I called and they told me she was. When she is told this info she begins screaming obscinities. She is told to be polite and lower her voice but she becomes even louder. Security is called to assist and she yells, "you called fucking security on me" - She is made aware that this behavior is not tolerated and escorted outside with security. She has refused our taxi to the mission.
== END 2022-11-20 07:30 | disposition home or self-care (01) ==
LOC: ER 18:17
DX: K70.31 Alcoholic cirrhosis of liver with ascites (principal); I11.0 Hypertensive heart disease with heart failure; I50.9 Heart failure, unspecified; J44.9 Chronic obstructive pulmonary disease, unspecified; K21.9 Gastro-esophageal reflux disease without esophagitis; G89.29 Other chronic pain; M54.9 Dorsalgia, unspecified; F15.10 Other stimulant abuse, uncomplicated; Z88.6 Allergy status to analgesic agent; Z79.899 Other long term (current) drug therapy; Z79.82 Long term (current) use of aspirin; Z79.1 Long term (current) use of non-steroidal anti-inflammatories (NSAID); Z79.2 Long term (current) use of antibiotics
CPT/HCPCS: 36415; 80053; 83735; 83880; 84484; 85025; 93005; 99284

== ENCOUNTER 2022-11-24 12:29 | Inpatient (IN) | payer MEDICAID ==
[~2022-11-24] VITALS: Ht 175.3 cm; Wt 116.4 kg
[2022-11-24 13:43] LABS: BASOPHILS # (AUTO) 0.1 X10'3 (0-0.2); BASOPHILS % (AUTO) 0.3 % (0-1); EOSINOPHILS % (AUTO) 0.1 % (0-6); HEMATOCRIT 32.8 % (35.0-45.0); HEMOGLOBIN 10.4 g/dl (12.0-16.0); LYMPHOCYTES # (AUTO) 0.8 X10'3 (1.1-4.8); LYMPHOCYTES % (AUTO) 4.1 % (21-51); MEAN CORPUSCULAR HEMOGLOBIN 28.9 PG (27.0-31.0); MEAN CORPUSCULAR HGB CONC 31.8 g/dL (33.0-36.5); MEAN CORPUSCULAR VOLUME 90.9 FL (78-98); MEAN PLATELET VOLUME 6.9 FL (7.4-10.4); NEUTROPHILS # (AUTO) 18.5 X10'3 (1.8-7.7); NEUTROPHILS % (AUTO) 90.5 % (42-75); PLATELET COUNT 371 X10'3 (140-440); RED BLOOD COUNT 3.61 X10'6 (4.20-5.60); RED CELL DISTRIBUTION WIDTH 16.7 % (11.5-14.5); WHITE BLOOD COUNT 20.5 X10'3 (4.5-11.0)
[2022-11-24 14:02] LABS: ANION GAP 3 (8-16); BILIRUBIN,TOTAL 0.4 MG/DL (0.1-1.0); BLOOD UREA NITROGEN 33 MG/DL (7-18); BUN/CREATININE RATIO 23.6 (6.6-38.0); CALCIUM 7.8 MG/DL (8.5-10.1); CHLORIDE 102 MMOL/L (99-107); POTASSIUM 3.9 MMOL/L (3.5-5.1); SODIUM 138 MMOL/L (135-145); TOTAL CARBON DIOXIDE 32.8 MMOL/L (24-32); TOTAL PROTEIN 8.3 G/DL (6.4-8.2); eGFR 39 ML/MIN
[2022-11-24 14:03] LABS: ALANINE AMINOTRANSFERASE 28 U/L (12-78); ALBUMIN 2.7 G/DL (3.4-5.0); ALBUMIN/GLOBULIN RATIO 0.5 (1.1-1.5); ALKALINE PHOSPHATASE 160 IU/L (46-116); ASPARTATE AMINO TRANSFERASE 34 U/L (10-37)
[2022-11-24 14:12] LABS: GLUCOSE 150 MG/DL (70-104)
[2022-11-24] MEDS ORDERED: AZIT500T9 PO (14:50)
[2022-11-24] MEDS ORDERED: FURO40TA4 PO (14:50)
[2022-11-24] MEDS ORDERED: POTA-206 PO (14:50)
[2022-11-24] MEDS ORDERED: ALBU17AE26 PO (14:51)
[2022-11-24] MEDS ORDERED: albuterol 2.5 MG/3 ML nebule NEB ONE (15:35)
[2022-11-24] MEDS ORDERED: vancomycin/NS 1 GM ADD-VANTAGE 250 ML IV ONE (15:40)
[2022-11-24] MEDS ORDERED: piperacillin/tazo 3.375gm/50ml 50 ML IV ONE (15:40)
[2022-11-24] MEDS ORDERED: furosemide 10 MG/1 ML 10ml inj IV ONE (15:50)
--- NOTE | 2022-11-24 16:22 | NUR ---
Paged RT: Bed 13 Aissatou Garcia need breathing tx please
[2022-11-24] MEDS ORDERED: ondansetron/PF 4mg/2ml inj IV PRN (19:40)
[2022-11-24] MEDS ORDERED: magnesium hydroxide 30ml (MOM) UD suspension PO PRN (19:40)
[2022-11-24] MEDS ORDERED: potassium Cl 40MEQ/1/2NS 520ml 520 ML IV PRN (19:40)
[2022-11-24] MEDS ORDERED: magnesium Cl slow-release 64mg tablet PO PRN (19:40)
[2022-11-24] MEDS ORDERED: magnesium 4gm in 100ml NS 100 ML IV PRN (19:40)
[2022-11-24] MEDS ORDERED: acetaminophen 325mg tablet PO PRN (19:40)
[2022-11-24] MEDS ORDERED: potassium Cl 20 mEq SR tablet PO PRN ×2 (19:40)
[2022-11-24] MEDS ORDERED: MESSAGE TO PHARMACY PO ONE (19:45)
[2022-11-24] MEDS ORDERED: glucagon, human recombinant 1mg kit SUBCUT PRN (19:45)
[2022-11-24] MEDS ORDERED: DEXTROSE 15 GM of carb/4 tabs (each vial/BOTTLE has 4 tablets) PO PRN ×2 (19:45)
[2022-11-24] MEDS ORDERED: insulin Lispro (HumaLOG) vial - multi-dose SQ SCH (19:45)
[2022-11-24] MEDS ORDERED: dextrose 50%-water 50ml dispensing syringe IV PRN ×2 (19:45)
[2022-11-24] MEDS ORDERED: amox tr/potassium clavulanate 875/125mg TAB PO ONE (19:50)
--- NOTE | 2022-11-24 19:54 | NUR ---
AGREE WITH PEPPER ALEJANDRO'S ASSESSMENT.
[2022-11-24] MEDS: docusate sod 100mg capsule PO SCH (20:00)
[2022-11-24] MEDS: buPROPion SR 100mg tab PO SCH (20:00)
[2022-11-24] MEDS: carVEDilol 12.5mg tablet PO SCH (20:00)
[2022-11-24] MEDS: furosemide 40mg tablet PO SCH (20:00)
[2022-11-24] MEDS: heparin, porcine 5000 units/ml vial SQ SCH (20:00)
[2022-11-24] MEDS: K and/or MAG REPLACEMENT MC SCH (20:03)
[2022-11-24] MEDS: clindamycin 300mg/D5W 50mL 50 ML IV SCH ×2 (21:53→22:06)
[2022-11-24 22:40] VITALS: BP 128/78
[2022-11-24] MEDS: LORazepam 2 mg/ml vial IV PRN (23:49)
[2022-11-24] MEDS: HYDROcodone/acetaminophen 5mg/325mg tablet PO PRN (23:50)
[2022-11-25 00:15] LABS: CLARITY,URINE SLIGHTLY CLOUDY (Clear); COLOR,URINE YELLOW (Yellow); GLUCOSE, URINE NEGATIVE (Neg); KETONES,URINE NEGATIVE (Neg); LEUKOCYTE ESTERASE ,URINE NEGATIVE (Neg); NITRITES, URINE NEGATIVE (Neg); OCCULT BLOOD,URINE SMALL (Neg); PH,URINE 5.5 (4.8-8.0); PROTEIN,URINE NEGATIVE (Neg); UROBILINOGEN,URINE 0.2 E.U/dL (0.2-1.0)
[2022-11-25 00:20] LABS: UA COLLECTION TYPE VOIDED
[2022-11-25 00:21] LABS: URINE AMPHETAMINE SCREEN POSITIVE (Neg); URINE BARBITUATE SCREEN NEGATIVE (Neg); URINE BENZODIAZEPINES SCREEN NEGATIVE (Neg); URINE CANNABINOID SCREEN NEGATIVE (Neg); URINE COCAINE SCREEN NEGATIVE (Neg); URINE METHADONE SCREEN NEGATIVE (Neg); URINE OPIATE SCREEN NEGATIVE (Neg); URINE PHENCYCLIDINE SCREEN NEGATIVE (Neg)
[2022-11-25 00:22] LABS: SQUAMOUS EPITHELIAL CELL,UR MANY /LPF (FEW)
[2022-11-25 00:23] LABS: BACTERIA,URINE 3+ /HPF (Neg)
[2022-11-25 00:24] LABS: WBC,URINE 0-4 /HPF (0-4)
[2022-11-25] MEDS: LORazepam 2 mg/ml vial IV PRN (00:38)
[2022-11-25] MEDS: clindamycin 300mg/D5W 50mL 50 ML IV SCH ×4 (02:54→19:40)
[2022-11-25 06:00] VITALS: BP 113/72
[2022-11-25 06:28] LABS: BASOPHILS % (AUTO) 0.4 % (0-1); EOSINOPHILS # (AUTO) 0.1 X10'3 (0-0.9); EOSINOPHILS % (AUTO) 0.9 % (0-6); HEMATOCRIT 30.2 % (35.0-45.0); HEMOGLOBIN 9.9 g/dl (12.0-16.0); LYMPHOCYTES # (AUTO) 0.8 X10'3 (1.1-4.8); LYMPHOCYTES % (AUTO) 7.3 % (21-51); MEAN CORPUSCULAR HEMOGLOBIN 29.8 PG (27.0-31.0); MEAN CORPUSCULAR HGB CONC 32.9 g/dL (33.0-36.5); MEAN CORPUSCULAR VOLUME 90.5 FL (78-98); MEAN PLATELET VOLUME 7.1 FL (7.4-10.4); MONOCYTES # (AUTO) 0.9 X10'3 (0-0.9); MONOCYTES % (AUTO) 8.2 % (2-12); NEUTROPHILS # (AUTO) 8.7 X10'3 (1.8-7.7); NEUTROPHILS % (AUTO) 83.2 % (42-75); PLATELET COUNT 333 X10'3 (140-440); RED BLOOD COUNT 3.33 X10'6 (4.20-5.60); RED CELL DISTRIBUTION WIDTH 16.6 % (11.5-14.5); WHITE BLOOD COUNT 10.5 X10'3 (4.5-11.0)
[2022-11-25 06:36] LABS: ALANINE AMINOTRANSFERASE 37 U/L (12-78); ALBUMIN 2.5 G/DL (3.4-5.0); ALBUMIN/GLOBULIN RATIO 0.5 (1.1-1.5); ALKALINE PHOSPHATASE 111 IU/L (46-116); ANION GAP 2 (8-16); ASPARTATE AMINO TRANSFERASE 44 U/L (10-37); BILIRUBIN,TOTAL 0.4 MG/DL (0.1-1.0); BLOOD UREA NITROGEN 34 MG/DL (7-18); BUN/CREATININE RATIO 23.8 (6.6-38.0); CALCIUM 7.7 MG/DL (8.5-10.1); CHLORIDE 102 MMOL/L (99-107); CREATININE 1.43 MG/DL (0.40-0.90); GLUCOSE 124 MG/DL (70-104); POTASSIUM 4.3 MMOL/L (3.5-5.1); SODIUM 138 MMOL/L (135-145); TOTAL CARBON DIOXIDE 34.2 MMOL/L (24-32); TOTAL PROTEIN 7.8 G/DL (6.4-8.2); eGFR 38 ML/MIN
--- NOTE | 2022-11-25 07:08 | NUR ---
Patient in room HARRY 360. I have received report from Damaris BLOCK and had the opportunity to ask questions and assume patient care.
[2022-11-25] MEDS: K and/or MAG REPLACEMENT MC SCH ×2 (08:00→19:40)
[2022-11-25] MEDS ORDERED: amox tr/potassium clavulanate 875/125mg TAB PO SCH (08:30)
[2022-11-25] MEDS: docusate sod 100mg capsule PO SCH ×3 (09:16→20:00)
[2022-11-25] MEDS: carVEDilol 12.5mg tablet PO SCH ×2 (09:16→19:39)
[2022-11-25] MEDS: furosemide 40mg tablet PO SCH (09:17)
[2022-11-25] MEDS: buPROPion SR 100mg tab PO SCH ×2 (09:29→19:39)
[2022-11-25] MEDS: spironolactone 25 MG tablet PO SCH (09:31)
[2022-11-25] MEDS: heparin, porcine 5000 units/ml vial SQ SCH ×2 (09:32→19:40)
[2022-11-25 10:00] VITALS: BP 128/90
[2022-11-25] MEDS ORDERED: LIDOcaine 1% 30ml preserv. free vial ONE (10:11)
[2022-11-25 10:48] VITALS: BP 125/86
[2022-11-25 11:34] VITALS: BP 117/84
[2022-11-25] MEDS ORDERED: albumin (human) 25% 100 ML IV solution IV ONE (11:40)
--- NOTE | 2022-11-25 16:42 | NUR ---
PRESSURE ULCER EDUCATION: DEFINITION: A pressure ulcer is an area of skin that breaks down when you stay in one position too long. The constant pressure against the skin reduces the blood flow to that area and the affected tissue dies. CAUSES: "Being bedridden or in a wheelchair "Fragile skin "Having a chronic condition, such as diabetes or vascular disease "Inability to move certain parts of your body without assistance "Older age "Incontinence of urine or stool SYMPTOMS: "A reddened area that DOES NOT turn white when pressed on - this can be the beginning of a pressure ulcer "A blister, deep sore or a crater - these can be advanced pressure ulcers FIRST AID: "Relieve the pressure on this area "Keep the area clean and dry "Call your primary doctor if you see any of the above symptoms "DO NOT massage the area "DO NOT use a donut shaped or ring shaped pillow- these actually interfere with the blood flow and cause complications PREVENTION: "Check for pressure ulcers everyday "Change position at least every two hours to relieve pressure "Use items that help relieve pressure- pillows, sheepskin, foam padding, and powders. "Keep skin clean and dry "Eat healthy well balanced meals "Exercise daily IF YOU SEE ANY OF THESE SYMPTOMS WHILE IN THE HOSPITAL - TELL YOUR NURSE IMMEDIATELY. IF YOU SEE ANY OF THESE SYMPTOMS WHILE AT HOME OR HAVE ANY QUESTIONS OR CONCERNS ABOUT PRESSURE ULCERS - CALL YOUR PRIMARY DOCTOR IMMEDIATELY. Addendum: 11/25/22 at 1642 by Emma Mendoza RN Amended: Links added.
--- NOTE | 2022-11-25 18:30 | NUR ---
Patient in room [facility]. I have received report from MCKAYLA NOLAN and had the opportunity to ask questions and assume patient care. Addendum: 11/25/22 at 2333 by Minh Kahn RN Amended: Links added.
--- NOTE | 2022-11-25 18:54 | NUR ---
patient stable up to BR withassist x1 and FWW. Wound care done by wound team. patient compliant with care. Report given to Emi BLOCK
[2022-11-25 19:37] VITALS: BP 121/87
[2022-11-25] MEDS: furosemide 40mg/4ml inj IV SCH (19:38)
[2022-11-25] MEDS: nystatin 15 GM powder TP SCH (21:13)
[2022-11-25 22:30] VITALS: BP 101/73
[2022-11-26] MEDS: clindamycin 300mg/D5W 50mL 50 ML IV SCH ×4 (02:36→20:14)
--- NOTE | 2022-11-26 05:36 | NUR ---
carmen williamson wants ceral and mil. no cereal available wants bobby samuels. bobby samuels given. Call light in reach Addendum: 11/26/22 at 0537 by Minh Kahn RN Amended: Links added.
[2022-11-26 05:56] LABS: BASOPHILS % (AUTO) 0.3 % (0-1); EOSINOPHILS # (AUTO) 0.1 X10'3 (0-0.9); EOSINOPHILS % (AUTO) 1.2 % (0-6); HEMATOCRIT 33.2 % (35.0-45.0); LYMPHOCYTES # (AUTO) 0.8 X10'3 (1.1-4.8); LYMPHOCYTES % (AUTO) 8.1 % (21-51); MEAN CORPUSCULAR HEMOGLOBIN 29.9 PG (27.0-31.0); MEAN CORPUSCULAR HGB CONC 33.2 g/dL (33.0-36.5); MEAN PLATELET VOLUME 7.4 FL (7.4-10.4); MONOCYTES # (AUTO) 0.9 X10'3 (0-0.9); NEUTROPHILS # (AUTO) 7.6 X10'3 (1.8-7.7); NEUTROPHILS % (AUTO) 80.4 % (42-75); PLATELET COUNT 333 X10'3 (140-440); RED BLOOD COUNT 3.68 X10'6 (4.20-5.60); RED CELL DISTRIBUTION WIDTH 16.3 % (11.5-14.5); WHITE BLOOD COUNT 9.5 X10'3 (4.5-11.0)
[2022-11-26 06:04] LABS: ALANINE AMINOTRANSFERASE 39 U/L (12-78); ALBUMIN 2.3 G/DL (3.4-5.0); ALBUMIN/GLOBULIN RATIO 0.6 (1.1-1.5); ALKALINE PHOSPHATASE 95 IU/L (46-116); ANION GAP 2 (8-16); ASPARTATE AMINO TRANSFERASE 46 U/L (10-37); BILIRUBIN,TOTAL 0.4 MG/DL (0.1-1.0); BLOOD UREA NITROGEN 31 MG/DL (7-18); BUN/CREATININE RATIO 26.5 (6.6-38.0); CALCIUM 7.7 MG/DL (8.5-10.1); CHLORIDE 99 MMOL/L (99-107); CREATININE 1.17 MG/DL (0.40-0.90); GLUCOSE 126 MG/DL (70-104); MAGNESIUM 1.8 MG/DL (1.5-2.4); POTASSIUM 4.3 MMOL/L (3.5-5.1); SODIUM 135 MMOL/L (135-145); TOTAL CARBON DIOXIDE 33.8 MMOL/L (24-32); TOTAL PROTEIN 6.4 G/DL (6.4-8.2); eGFR 48 ML/MIN
--- NOTE | 2022-11-26 06:37 | NUR ---
Problems reprioritized. Patient report given, questions answered & plan of care reviewed with MCKAYLA Berrios. Addendum: 11/26/22 at 0637 by Minh Kahn RN Amended: Links added.
--- NOTE | 2022-11-26 06:52 | NUR ---
Patient in room [facility]. I have received report from Emi BLOCK and had the opportunity to ask questions and assume patient care.
[2022-11-26 06:56] VITALS: BP 123/72
[2022-11-26] MEDS: docusate sod 100mg capsule PO SCH ×2 (08:00→20:00)
[2022-11-26] MEDS: K and/or MAG REPLACEMENT MC SCH ×2 (08:00→20:00)
[2022-11-26] MEDS: furosemide 40mg/4ml inj IV SCH ×2 (10:01→20:14)
[2022-11-26] MEDS: spironolactone 25 MG tablet PO SCH (10:02)
[2022-11-26] MEDS: carVEDilol 12.5mg tablet PO SCH ×2 (10:02→20:15)
[2022-11-26] MEDS: heparin, porcine 5000 units/ml vial SQ SCH ×2 (10:03→20:15)
[2022-11-26] MEDS: buPROPion SR 100mg tab PO SCH ×2 (10:51→20:15)
[2022-11-26] MEDS: nystatin 15 GM powder TP SCH ×3 (10:59→22:51)
[2022-11-26 11:22] VITALS: BP 124/82
--- NOTE | 2022-11-26 16:24 | NUR ---
Patient did not want BLE dressing changed at this time because she is going to be taking a shower after her visitors leave. Shower is set up and waiting at this time. Patients dressing to right abdomen where paracentesis site is still leaking.
--- NOTE | 2022-11-26 18:22 | NUR ---
Problems reprioritized. Patient report given, questions answered & plan of care reviewed with Emi BLOCK.
[2022-11-26 18:30] VITALS: BP 120/78
--- NOTE | 2022-11-26 18:30 | NUR ---
Patient in room [facility]. I have received report from MCKAYLA Berrios and had the opportunity to ask questions and assume patient care. Addendum: 11/26/22 at 1929 by Minh Kahn RN Amended: Links added.
--- NOTE | 2022-11-26 20:24 | NUR ---
refusing all care at this time, refuses dressing change, shower, nystatin. took medications. Addendum: 11/26/22 at 2023 by Minh Kahn RN Amended: Links added.
--- NOTE | 2022-11-26 21:00 | NUR ---
refused blood glucose Addendum: 11/27/22 at 0452 by Minh Kahn RN Amended: Links added.
--- NOTE | 2022-11-26 21:45 | NUR ---
pt up to shower, amb with fww, gait steady, pt able to sit and stand by self. Addendum: 11/26/22 at 2146 by Minh Kahn RN Amended: Links added.
--- NOTE | 2022-11-26 21:46 | NUR ---
Pt freq checked and still in shower. pt states wants to sit and detangle her hair. she is able to use call light and will call when ready to stand up. Addendum: 11/26/22 at 2147 by Minh Kahn RN Amended: Links added.
--- NOTE | 2022-11-26 22:09 | NUR ---
amb from shower to bed. sean cruz. Addendum: 11/26/22 at 2209 by Minh Kahn RN Amended: Links added.
[2022-11-26 22:30] VITALS: BP 107/68
[2022-11-26] MEDS: LORazepam 1 MG tablet PO PRN (22:51)
[2022-11-26] MEDS: HYDROcodone/acetaminophen 5mg/325mg tablet PO PRN (23:08)
[2022-11-27] MEDS: clindamycin 300mg/D5W 50mL 50 ML IV SCH ×3 (03:23→15:05)
[2022-11-27 05:23] LABS: BASOPHILS % (AUTO) 0.3 % (0-1); EOSINOPHILS # (AUTO) 0.3 X10'3 (0-0.9); EOSINOPHILS % (AUTO) 2.6 % (0-6); HEMATOCRIT 31.6 % (35.0-45.0); HEMOGLOBIN 10.5 g/dl (12.0-16.0); LYMPHOCYTES % (AUTO) 9.3 % (21-51); MEAN CORPUSCULAR HEMOGLOBIN 29.9 PG (27.0-31.0); MEAN CORPUSCULAR HGB CONC 33.3 g/dL (33.0-36.5); MEAN CORPUSCULAR VOLUME 89.9 FL (78-98); MEAN PLATELET VOLUME 7.5 FL (7.4-10.4); MONOCYTES # (AUTO) 1.4 X10'3 (0-0.9); MONOCYTES % (AUTO) 13.3 % (2-12); NEUTROPHILS # (AUTO) 7.6 X10'3 (1.8-7.7); NEUTROPHILS % (AUTO) 74.5 % (42-75); PLATELET COUNT 328 X10'3 (140-440); RED BLOOD COUNT 3.51 X10'6 (4.20-5.60); WHITE BLOOD COUNT 10.2 X10'3 (4.5-11.0)
[2022-11-27 05:29] LABS: ALANINE AMINOTRANSFERASE 38 U/L (12-78); ALBUMIN 2.3 G/DL (3.4-5.0); ALBUMIN/GLOBULIN RATIO 0.6 (1.1-1.5); ALKALINE PHOSPHATASE 113 IU/L (46-116); ANION GAP 2 (8-16); ASPARTATE AMINO TRANSFERASE 32 U/L (10-37); BILIRUBIN,TOTAL 0.3 MG/DL (0.1-1.0); BLOOD UREA NITROGEN 21 MG/DL (7-18); BUN/CREATININE RATIO 19.8 (6.6-38.0); CALCIUM 7.7 MG/DL (8.5-10.1); CHLORIDE 99 MMOL/L (99-107); CREATININE 1.06 MG/DL (0.40-0.90); GLUCOSE 152 MG/DL (70-104); MAGNESIUM 1.8 MG/DL (1.5-2.4); POTASSIUM 3.5 MMOL/L (3.5-5.1); SODIUM 136 MMOL/L (135-145); TOTAL CARBON DIOXIDE 34.8 MMOL/L (24-32); TOTAL PROTEIN 6.2 G/DL (6.4-8.2); eGFR 54 ML/MIN
--- NOTE | 2022-11-27 06:37 | NUR ---
Problems reprioritized. Patient report given, questions answered & plan of care reviewed with MCKAYLA Berrios. Addendum: 11/27/22 at 0637 by Minh Kahn RN Amended: Links added.
--- NOTE | 2022-11-27 06:46 | NUR ---
Patient in room [facility]. I have received report from Emi BLOCK and had the opportunity to ask questions and assume patient care.
[2022-11-27 06:58] VITALS: BP 121/67
[2022-11-27] MEDS: K and/or MAG REPLACEMENT MC SCH ×2 (08:00→20:00)
[2022-11-27] MEDS: buPROPion SR 100mg tab PO SCH ×2 (09:56→20:01)
[2022-11-27] MEDS: docusate sod 100mg capsule PO SCH ×2 (09:56→20:00)
[2022-11-27] MEDS: spironolactone 25 MG tablet PO SCH (09:57)
[2022-11-27] MEDS: carVEDilol 12.5mg tablet PO SCH ×2 (09:57→20:01)
[2022-11-27] MEDS: heparin, porcine 5000 units/ml vial SQ SCH ×2 (10:00→20:00)
[2022-11-27] MEDS: furosemide 40mg/4ml inj IV SCH ×2 (10:00→20:00)
[2022-11-27] MEDS: nystatin 15 GM powder TP SCH ×3 (10:12→21:00)
[2022-11-27] MEDS ORDERED: albuterol 2.5 MG/3 ML nebule NEB PRN (11:45)
--- NOTE | 2022-11-27 12:18 | NUR ---
DM Consult: Pt A1C 6.2% w/ no hx DM per EMR; A1C appropriate. KALLI d/w RN regarding cancelling carb control diet and change to heart healthy if MD agreeable as pt not requiring glycemic coverage or on glycemic protocol. Addendum: 11/27/22 at [address] Amended: Links added.
[2022-11-27 14:57] VITALS: BP 118/76
--- NOTE | 2022-11-27 18:28 | NUR ---
Problems reprioritized. Patient report given, questions answered & plan of care reviewed with Emi BLOCK.
[2022-11-27 18:30] VITALS: BP 122/76
--- NOTE | 2022-11-27 18:30 | NUR ---
Patient in room [facility]. I have received report from MCKAYLA Berrois and had the opportunity to ask questions and assume patient care.
[2022-11-27] MEDS: clindamycin 150mg capsule PO SCH (20:01)
[2022-11-27] MEDS: apixaban 5mg tablet PO SCH (20:02)
[2022-11-27] MEDS: potassium Cl 20 mEq SR tablet PO SCH (20:03)
[2022-11-27] MEDS: budesonide 0.5mg/2ml UD nebule IH SCH ×2 (20:26→20:33)
[2022-11-27 22:30] VITALS: BP 123/76
--- NOTE | 2022-11-27 23:47 | NUR ---
PT STILL REFUSES DRESSING CHANGE, AND NYSTATIN. pT STATES DOES NOT NEED, EITHER, "THEY ARE FINE" Addendum: 11/27/22 at 2348 by Minh Kahn RN Amended: Links added.
[2022-11-28] MEDS: LORazepam 1 MG tablet PO PRN (02:08)
[2022-11-28] MEDS: clindamycin 150mg capsule PO SCH ×4 (02:08→20:56)
[2022-11-28 06:16] LABS: BASOPHILS # (AUTO) 0.1 X10'3 (0-0.2); BASOPHILS % (AUTO) 0.5 % (0-1); EOSINOPHILS # (AUTO) 0.3 X10'3 (0-0.9); EOSINOPHILS % (AUTO) 2.7 % (0-6); HEMATOCRIT 33.2 % (35.0-45.0); HEMOGLOBIN 10.6 g/dl (12.0-16.0); MEAN CORPUSCULAR HEMOGLOBIN 28.6 PG (27.0-31.0); MEAN CORPUSCULAR HGB CONC 31.9 g/dL (33.0-36.5); MEAN CORPUSCULAR VOLUME 89.5 FL (78-98); MEAN PLATELET VOLUME 7.8 FL (7.4-10.4); MONOCYTES # (AUTO) 1.2 X10'3 (0-0.9); MONOCYTES % (AUTO) 11.9 % (2-12); NEUTROPHILS # (AUTO) 7.9 X10'3 (1.8-7.7); NEUTROPHILS % (AUTO) 74.9 % (42-75); PLATELET COUNT 355 X10'3 (140-440); RED BLOOD COUNT 3.72 X10'6 (4.20-5.60); RED CELL DISTRIBUTION WIDTH 16.4 % (11.5-14.5); WHITE BLOOD COUNT 10.5 X10'3 (4.5-11.0)
[2022-11-28 06:28] LABS: ALANINE AMINOTRANSFERASE 40 U/L (12-78); ALBUMIN 2.3 G/DL (3.4-5.0); ALBUMIN/GLOBULIN RATIO 0.5 (1.1-1.5); ALKALINE PHOSPHATASE 112 IU/L (46-116); ANION GAP 1 (8-16); ASPARTATE AMINO TRANSFERASE 41 U/L (10-37); BILIRUBIN,TOTAL 0.4 MG/DL (0.1-1.0); BLOOD UREA NITROGEN 20 MG/DL (7-18); BUN/CREATININE RATIO 17.9 (6.6-38.0); CALCIUM 7.9 MG/DL (8.5-10.1); CHLORIDE 99 MMOL/L (99-107); CREATININE 1.12 MG/DL (0.40-0.90); GLUCOSE 105 MG/DL (70-104); MAGNESIUM 1.8 MG/DL (1.5-2.4); SODIUM 137 MMOL/L (135-145); TOTAL CARBON DIOXIDE 37.4 MMOL/L (24-32); TOTAL PROTEIN 6.6 G/DL (6.4-8.2); eGFR 50 ML/MIN
--- NOTE | 2022-11-28 06:30 | NUR ---
Problems reprioritized. Patient report given, questions answered & plan of care reviewed with MCKAYLA Berrios. Addendum: 11/28/22 at 0645 by Minh Kahn RN Amended: Links added.
--- NOTE | 2022-11-28 06:58 | NUR ---
Patient in room [facility]. I have received report from Emi BLOCK and had the opportunity to ask questions and assume patient care.
[2022-11-28 07:05] VITALS: BP 121/67
[2022-11-28] MEDS: K and/or MAG REPLACEMENT MC SCH ×2 (08:00→20:00)
[2022-11-28] MEDS: budesonide 0.5mg/2ml UD nebule IH SCH ×2 (09:00→20:00)
--- NOTE | 2022-11-28 09:43 | NUR ---
pt. refused morning svn. she wanted to sleep. no resp distress observed
[2022-11-28] MEDS: buPROPion SR 100mg tab PO SCH ×2 (09:48→20:56)
[2022-11-28] MEDS: docusate sod 100mg capsule PO SCH ×2 (09:49→20:00)
[2022-11-28] MEDS: apixaban 5mg tablet PO SCH ×2 (09:49→20:56)
[2022-11-28] MEDS: atorvastatin 10mg tablet PO SCH (09:49)
[2022-11-28] MEDS: potassium Cl 20 mEq SR tablet PO SCH (09:50)
[2022-11-28] MEDS: carVEDilol 12.5mg tablet PO SCH ×2 (09:50→20:56)
[2022-11-28] MEDS: aspirin 81mg, enteric-coated 1 TAB TABLET.DR PO SCH (09:51)
[2022-11-28] MEDS: spironolactone 25 MG tablet PO SCH (09:52)
[2022-11-28] MEDS: heparin, porcine 5000 units/ml vial SQ SCH ×2 (09:55→20:55)
[2022-11-28] MEDS: nystatin 15 GM powder TP SCH ×3 (10:00→22:30)
[2022-11-28] MEDS: furosemide 40mg/4ml inj IV SCH ×2 (10:07→20:55)
[2022-11-28 11:00] VITALS: BP 121/76
[2022-11-28] MEDS: mag hydrox/Alum hydrox/simeth 30ml oral suspension PO PRN (14:47)
[2022-11-28 18:30] VITALS: BP 117/71
--- NOTE | 2022-11-28 18:30 | NUR ---
Patient in room [facility]. I have received report from MCKAYLA Berrios and had the opportunity to ask questions and assume patient care. Addendum: 11/28/22 at 2357 by Minh Kahn RN Amended: Links added.
--- NOTE | 2022-11-28 18:31 | NUR ---
Problems reprioritized. Patient report given, questions answered & plan of care reviewed with Emi BLOCK.
[2022-11-28] MEDS ORDERED: LORazepam 1 MG tablet PO PRN (19:45)
--- NOTE | 2022-11-28 21:06 | NUR ---
gi and refusing care at this time, took medications. Addendum: 11/28/22 at 2106 by Minh Kahn RN Amended: Links added.
[2022-11-28 22:30] VITALS: BP_SYST 124; BP_SYST 132; BP_DIAS 83; BP_DIAS 85
[2022-11-29] MEDS: clindamycin 150mg capsule PO SCH ×4 (01:40→19:58)
[2022-11-29 06:00] VITALS: BP 124/81
--- NOTE | 2022-11-29 06:30 | NUR ---
Problems reprioritized. Patient report given, questions answered & plan of care reviewed with MCKAYLA Duke. Addendum: 11/29/22 at 0631 by Minh Kahn RN Amended: Links added.
--- NOTE | 2022-11-29 07:28 | NUR ---
Patient in room [facility]. I have received report from MCKAYLA GRAJEDA and had the opportunity to ask questions and assume patient care.
[2022-11-29] MEDS: budesonide 0.5mg/2ml UD nebule IH SCH ×2 (07:59→20:06)
[2022-11-29] MEDS: docusate sod 100mg capsule PO SCH ×2 (08:00→19:58)
[2022-11-29] MEDS: spironolactone 25 MG tablet PO SCH (08:00)
[2022-11-29] MEDS: nystatin 15 GM powder TP SCH ×3 (08:00→20:20)
[2022-11-29] MEDS: furosemide 40mg/4ml inj IV SCH ×2 (08:00→19:57)
[2022-11-29 08:51] LABS: BASOPHILS # (AUTO) 0.1 X10'3 (0-0.2); EOSINOPHILS # (AUTO) 0.3 X10'3 (0-0.9); EOSINOPHILS % (AUTO) 3.4 % (0-6); HEMATOCRIT 32.4 % (35.0-45.0); HEMOGLOBIN 10.8 g/dl (12.0-16.0); LYMPHOCYTES # (AUTO) 1.1 X10'3 (1.1-4.8); LYMPHOCYTES % (AUTO) 12.4 % (21-51); MEAN CORPUSCULAR HEMOGLOBIN 29.6 PG (27.0-31.0); MEAN CORPUSCULAR HGB CONC 33.3 g/dL (33.0-36.5); MEAN CORPUSCULAR VOLUME 88.9 FL (78-98); MEAN PLATELET VOLUME 7.5 FL (7.4-10.4); MONOCYTES # (AUTO) 1.2 X10'3 (0-0.9); NEUTROPHILS % (AUTO) 69.2 % (42-75); PLATELET COUNT 370 X10'3 (140-440); RED BLOOD COUNT 3.64 X10'6 (4.20-5.60); WHITE BLOOD COUNT 8.7 X10'3 (4.5-11.0)
[2022-11-29 09:06] LABS: ALANINE AMINOTRANSFERASE 49 U/L (12-78); ALBUMIN 2.2 G/DL (3.4-5.0); ALBUMIN/GLOBULIN RATIO 0.5 (1.1-1.5); ALKALINE PHOSPHATASE 99 IU/L (46-116); ANION GAP 3 (8-16); ASPARTATE AMINO TRANSFERASE 44 U/L (10-37); BILIRUBIN,TOTAL 0.5 MG/DL (0.1-1.0); BLOOD UREA NITROGEN 14 MG/DL (7-18); BUN/CREATININE RATIO 13.9 (6.6-38.0); CALCIUM 8.2 MG/DL (8.5-10.1); CHLORIDE 97 MMOL/L (99-107); CREATININE 1.01 MG/DL (0.40-0.90); GLUCOSE 110 MG/DL (70-104); POTASSIUM 4.3 MMOL/L (3.5-5.1); SODIUM 136 MMOL/L (135-145); TOTAL CARBON DIOXIDE 36.5 MMOL/L (24-32); TOTAL PROTEIN 6.5 G/DL (6.4-8.2); eGFR 57 ML/MIN
[2022-11-29 10:00] VITALS: BP 94/70
[2022-11-29] MEDS: potassium Cl 20 mEq SR tablet PO SCH (11:47)
[2022-11-29] MEDS: thiamine 100mg tablet PO SCH (11:47)
[2022-11-29] MEDS: aspirin 81mg, enteric-coated 1 TAB TABLET.DR PO SCH (11:47)
[2022-11-29] MEDS: atorvastatin 10mg tablet PO SCH (11:48)
[2022-11-29] MEDS: apixaban 5mg tablet PO SCH ×2 (11:48→19:58)
[2022-11-29] MEDS: carVEDilol 12.5mg tablet PO SCH ×2 (11:50→19:57)
[2022-11-29] MEDS: heparin, porcine 5000 units/ml vial SQ SCH ×2 (11:56→19:58)
[2022-11-29] MEDS: buPROPion SR 100mg tab PO SCH ×2 (11:57→19:58)
--- NOTE | 2022-11-29 13:56 | NUR ---
Initial: Pt admit DX sepsis, BLE cellulitis, massive ascites s/p paracentesis -9.4L, VICENTA w/ CKD, CHF exacerbation, and meth-induced cardiomyopathy per EMR. Pt hx alcoholism and cirrhosis receiving routine thiamine per EMR. PO ~100% avg heart healthy diet meeting estimated needs. LBM 11/28 receiving routine colace. No nutrition interventions at this time. Will continue to monitor. Rec: 1. continue heart healthy diet per MD 2. routine thiamine supplementation for etoh hx 3. routine bowel care 4. scaled wt this admit; subsequent weekly wts Addendum: 11/29/22 at [address] Amended: Links added.
[2022-11-29] MEDS: K and/or MAG REPLACEMENT MC SCH ×2 (16:22→20:00)
[2022-11-29 18:00] VITALS: BP 102/72
--- NOTE | 2022-11-29 18:15 | NUR ---
Patient in room [facility]. I have received report from MCKAYLA Duke and had the opportunity to ask questions and assume patient care.
--- NOTE | 2022-11-29 19:20 | NUR ---
Problems reprioritized. Patient report given, questions answered & plan of care reviewed with MCKAYLA TAYLOR.
[2022-11-29] MEDS: HYDROcodone/acetaminophen 5mg/325mg tablet PO PRN (20:26)
[2022-11-29 22:00] VITALS: BP 110/78
[2022-11-30] MEDS: clindamycin 150mg capsule PO SCH ×4 (02:16→22:58)
[2022-11-30 06:00] VITALS: BP 112/70
--- NOTE | 2022-11-30 06:32 | NUR ---
Problems reprioritized. Patient report given, questions answered & plan of care reviewed with MCKAYLA Delarosa.
--- NOTE | 2022-11-30 06:58 | NUR ---
Patient in room [facility]. I have received report from ANTHONY BLOCK and had the opportunity to ask questions and assume patient care.
[2022-11-30] MEDS: docusate sod 100mg capsule PO SCH ×2 (08:00→20:00)
[2022-11-30] MEDS: nystatin 15 GM powder TP SCH ×3 (08:00→23:00)
[2022-11-30] MEDS: K and/or MAG REPLACEMENT MC SCH ×2 (08:00→20:00)
[2022-11-30] MEDS: budesonide 0.5mg/2ml UD nebule IH SCH ×2 (08:38→19:48)
[2022-11-30] MEDS: aspirin 81mg, enteric-coated 1 TAB TABLET.DR PO SCH (08:53)
[2022-11-30] MEDS: furosemide 40mg/4ml inj IV SCH ×2 (08:53→22:58)
[2022-11-30] MEDS: buPROPion SR 100mg tab PO SCH ×2 (08:54→23:00)
[2022-11-30] MEDS: spironolactone 25 MG tablet PO SCH (08:54)
[2022-11-30] MEDS: thiamine 100mg tablet PO SCH (08:54)
[2022-11-30] MEDS: apixaban 5mg tablet PO SCH ×2 (08:54→22:59)
[2022-11-30] MEDS: potassium Cl 20 mEq SR tablet PO SCH (08:54)
[2022-11-30] MEDS: atorvastatin 10mg tablet PO SCH (08:54)
[2022-11-30] MEDS: carVEDilol 12.5mg tablet PO SCH ×2 (08:54→23:06)
[2022-11-30] MEDS: heparin, porcine 5000 units/ml vial SQ SCH ×2 (08:55→23:01)
[2022-11-30 10:00] VITALS: BP 123/81
[2022-11-30] MEDS: mag hydrox/Alum hydrox/simeth 30ml oral suspension PO PRN ×2 (15:14→23:12)
[2022-11-30 18:00] VITALS: BP 110/63
--- NOTE | 2022-11-30 18:25 | NUR ---
Patient in room [facility]. I have received report from Isaura BLOCK and had the opportunity to ask questions and assume patient care.
[2022-11-30 22:00] VITALS: BP 95/65
[2022-11-30] MEDS: HYDROcodone/acetaminophen 5mg/325mg tablet PO PRN (23:04)
[2022-12-01] MEDS: clindamycin 150mg capsule PO SCH ×4 (01:36→20:32)
[2022-12-01 06:30] VITALS: BP 94/64
--- NOTE | 2022-12-01 07:00 | NUR ---
Reported off to day RN.
[2022-12-01] MEDS: furosemide 40mg/4ml inj IV SCH ×2 (08:00→20:42)
[2022-12-01] MEDS: K and/or MAG REPLACEMENT MC SCH ×2 (08:00→20:00)
[2022-12-01] MEDS: docusate sod 100mg capsule PO SCH ×3 (08:00→20:00)
[2022-12-01] MEDS: carVEDilol 12.5mg tablet PO SCH ×2 (08:00→20:33)
[2022-12-01] MEDS: spironolactone 25 MG tablet PO SCH (08:00)
[2022-12-01] MEDS: budesonide 0.5mg/2ml UD nebule IH SCH ×2 (08:19→19:35)
[2022-12-01] MEDS: nystatin 15 GM powder TP SCH ×3 (08:52→20:43)
[2022-12-01] MEDS: mag hydrox/Alum hydrox/simeth 30ml oral suspension PO PRN ×3 (08:52→20:38)
[2022-12-01] MEDS: buPROPion SR 100mg tab PO SCH ×2 (08:53→20:31)
[2022-12-01] MEDS: aspirin 81mg, enteric-coated 1 TAB TABLET.DR PO SCH (08:53)
[2022-12-01] MEDS: potassium Cl 20 mEq SR tablet PO SCH (08:53)
[2022-12-01] MEDS: apixaban 5mg tablet PO SCH ×2 (08:53→20:33)
[2022-12-01] MEDS: atorvastatin 10mg tablet PO SCH (08:53)
[2022-12-01] MEDS: thiamine 100mg tablet PO SCH (08:53)
[2022-12-01] MEDS: heparin, porcine 5000 units/ml vial SQ SCH ×2 (08:54→20:39)
[2022-12-01 09:13] VITALS: BP 87/56
--- NOTE | 2022-12-01 09:20 | NUR ---
Paged Dr. Torres 360B Wlliams BP low. 87/56 . Fransisca [id number]
[2022-12-01] MEDS ORDERED: albumin (human) 25% 100ml IV 100 ML in dextrose 5% water 500ml 400 ML IV ONE (09:40)
[2022-12-01 11:00] VITALS: BP 107/73
[2022-12-01] MEDS: HYDROcodone/acetaminophen 5mg/325mg tablet PO PRN ×2 (13:34→20:31)
[2022-12-01 18:00] VITALS: BP 115/74
--- NOTE | 2022-12-01 18:40 | NUR ---
Patient in room [facility]. I have received report from SNOW BLOCK and had the opportunity to ask questions and assume patient care.
[2022-12-02] MEDS: clindamycin 150mg capsule PO SCH ×2 (03:22→08:49)
[2022-12-02 06:00] VITALS: BP 108/70
--- NOTE | 2022-12-02 06:10 | NUR ---
Patient in room [facility]. I have received report from Francheska Pritchard RN and had the opportunity to ask questions and assume patient care.
--- NOTE | 2022-12-02 06:19 | NUR ---
Problems reprioritized. Patient report given, questions answered & plan of care reviewed with GERARDO PABON.
[2022-12-02] MEDS: docusate sod 100mg capsule PO SCH ×2 (08:00→08:48)
[2022-12-02] MEDS: heparin, porcine 5000 units/ml vial SQ SCH (08:00)
[2022-12-02] MEDS: potassium Cl 20 mEq SR tablet PO SCH ×2 (08:00→08:53)
[2022-12-02] MEDS: nystatin 15 GM powder TP SCH ×2 (08:00→13:00)
[2022-12-02] MEDS: K and/or MAG REPLACEMENT MC SCH (08:00)
[2022-12-02] MEDS: aspirin 81mg, enteric-coated 1 TAB TABLET.DR PO SCH (08:47)
[2022-12-02] MEDS: carVEDilol 12.5mg tablet PO SCH (08:47)
[2022-12-02] MEDS: atorvastatin 10mg tablet PO SCH (08:48)
[2022-12-02] MEDS: thiamine 100mg tablet PO SCH (08:48)
[2022-12-02] MEDS: buPROPion SR 100mg tab PO SCH (08:48)
[2022-12-02] MEDS: spironolactone 25 MG tablet PO SCH ×2 (08:53→08:55)
[2022-12-02] MEDS: mag hydrox/Alum hydrox/simeth 30ml oral suspension PO PRN (08:58)
--- NOTE | 2022-12-02 09:41 | NUR ---
Patient stated that the clindamycin capsule hurts her stomach. I called pharmacy to see if the capsule can be opened and put in applesauce, per pharmacist no not allowed. I advised patient of this and she agreed to take the medication with Maalox. 30 mins later patient vomited, Zofran was given.
[2022-12-02] MEDS: furosemide 40mg/4ml inj IV SCH (09:43)
[2022-12-02 10:00] VITALS: BP 138/95
[2022-12-02] MEDS: budesonide 0.5mg/2ml UD nebule IH SCH (10:06)
[2022-12-02 10:57] VITALS: BP 135/89
[2022-12-02 11:03] VITALS: BP 110/72
[2022-12-02 11:37] VITALS: BP 112/76
[2022-12-02] MEDS ORDERED: albumin (human) 25% 100 ML IV solution IV ONE (11:40)
--- NOTE | 2022-12-02 12:03 | NUR ---
Patient refused albumin per orders . Patient was educated and encouraged to let us hang the albumin due to 6500ml of fluid taken off her from the Paracentesis. Patient did thank me for being nice to her. I did continue to educate and encourage her to let us hang the albumin .
--- NOTE | 2022-12-02 12:32 | NUR ---
PAGER ID: [phone] MESSAGE: Gina Surg [id number] Re: [id number] Jose chávez FYI she is refusing Albumin. Per our discussion will discharge when orders are in
--- NOTE | 2022-12-02 13:00 | NUR ---
Patient discharged today. Patient dressed herself and gathered all belongings. Discharge instructions were explained to patient. Patient removed her own IV without a nurse present. Patient was wheeled downstairs. Patient didn't want to wait to get her belongings from security and stated that she will come back later. Patient walked out of the hospital.
[2022-12-02 13:27] LABS: LYMPHOCYTES,BODY FLUID 46 %; MONOCYTES,BODY FLUID 31 %; NEUTROPHILS,BODY FLUID 23 %
[2022-12-02 13:29] LABS: BF MESOTHELIAL CELLS MODERATE; BF RBC COUNT 1350 /CU MM; BF WBC COUNT 420 /CU MM (0-1000); BFAPPEAR CLOUDY; BFCOLOR YELLOW; BFVOLUME 55 ML
== END 2022-12-02 13:45 | disposition home or self-care (01) | DRG 720 ==
LOC: ER 12:29 → ED HOLD 19:39 → SUR 3N 22:30
PROVIDERS: ADMIT Internal Medicine; ATTEND Family Medicine
PROC: 0W9G3ZZ Drainage of Peritoneal Cavity, Percutaneous Approach (ICD-10-PCS; principal; 2022-11-25)
PROC: 0W9G3ZZ Drainage of Peritoneal Cavity, Percutaneous Approach (ICD-10-PCS; 2022-12-02)
DX: A41.9 Sepsis, unspecified organism (principal); I50.23 Acute on chronic systolic (congestive) heart failure; N17.9 Acute kidney failure, unspecified; R18.8 Other ascites; I42.8 Other cardiomyopathies; I13.0 Hypertensive heart and chronic kidney disease with heart failure and stage 1 through stage 4 chronic kidney disease, or unspecified chronic kidney disease; L03.115 Cellulitis of right lower limb; L03.116 Cellulitis of left lower limb; I50.22 Chronic systolic (congestive) heart failure; E78.00 Pure hypercholesterolemia, unspecified; I25.10 Atherosclerotic heart disease of native coronary artery without angina pectoris; J44.9 Chronic obstructive pulmonary disease, unspecified; E11.22 Type 2 diabetes mellitus with diabetic chronic kidney disease; N18.9 Chronic kidney disease, unspecified; F32.A Depression, unspecified; F17.200 Nicotine dependence, unspecified, uncomplicated; F10.20 Alcohol dependence, uncomplicated; Z59.00 Homelessness unspecified; Z88.8 Allergy status to other drugs, medicaments and biological substances
CPT/HCPCS: 36415; 49083; 71046; 74176; 80053; 80305; 81001; 82948; 83036; 83605; 83735; 83880; 84132; 84145; 84443; 85025; 87040; 87070; 87081; 89051; 93005; 94640; 94760; 99285; A4615; A6212; A6213; A6222; A6223; A6446; A6449; G0378; J1644; J1815; J1940; J2060; J2405; J2543; J3370; J3490; J7030; J7060; P9047

== ENCOUNTER 2023-03-25 11:00 | Emergency (ER) | payer MEDICAID ==
[~2023-03-25] VITALS: Ht 175.3 cm; Wt 90.0 kg
[~2023-03-25 11:00] MED LIST changes: +ALBU17AE26 PO; -CLIN-97 PO; -CYCL5TAB PO; -FOLI0.4T14 PO; -FURO20TA4 PO; +FURO40TA4 PO; -GABA300C PO; -LEVA15HF6 PO; -NALT50TA PO; -NIAC100045 PO; -PANT40TA54 PO; +POTA-206 PO; -POTA-208 PO; -THIA100T73 PO
[2023-03-25 11:15] VITALS: BP 108/78
[2023-03-25] MEDS ORDERED: SULF1TAB49 PO (11:36)
[2023-03-25] MEDS ORDERED: sulfamethoxazole/trimethoprim DS (800/160mg) tablet PO ONE (11:40)
[2023-03-25] MEDS ORDERED: bacitracin 15gm ointment TP ONE (11:40)
== END 2023-03-25 11:58 | disposition home or self-care (01) ==
LOC: ER 11:02
DX: L03.116 Cellulitis of left lower limb (principal); I11.0 Hypertensive heart disease with heart failure; E78.00 Pure hypercholesterolemia, unspecified; J44.9 Chronic obstructive pulmonary disease, unspecified; G89.29 Other chronic pain; M54.9 Dorsalgia, unspecified; F15.10 Other stimulant abuse, uncomplicated; Z59.00 Homelessness unspecified; Z56.0 Unemployment, unspecified; Z88.6 Allergy status to analgesic agent; Z79.899 Other long term (current) drug therapy; Z79.82 Long term (current) use of aspirin; Z79.1 Long term (current) use of non-steroidal anti-inflammatories (NSAID)
CPT/HCPCS: 99283; A6449

== ENCOUNTER 2023-10-24 10:10 | Emergency (ER) | payer MEDICAID ==
[~2023-10-24] VITALS: Ht 175.3 cm; Wt 94.4 kg
[2023-10-24 10:13] VITALS: BP 110/77; PULSE 105; TEMP 98; O2SAT 97
[2023-10-24 10:30] VITALS: RESP 18
== END 2023-10-24 16:45 | disposition home or self-care (01) ==
LOC: ER 10:11
DX: Z02.89 Encounter for other administrative examinations (principal); F10.20 Alcohol dependence, uncomplicated; I11.0 Hypertensive heart disease with heart failure; I50.9 Heart failure, unspecified; E78.00 Pure hypercholesterolemia, unspecified; J44.9 Chronic obstructive pulmonary disease, unspecified; G89.29 Other chronic pain; F15.90 Other stimulant use, unspecified, uncomplicated; Z56.0 Unemployment, unspecified; Z59.00 Homelessness unspecified; Z72.89 Other problems related to lifestyle; Z88.6 Allergy status to analgesic agent; Z79.899 Other long term (current) drug therapy; Z79.82 Long term (current) use of aspirin
CPT/HCPCS: 99281